=== PATIENT | male | born 1945 | race Caucasian/White ===

== ENCOUNTER 2016-06-04 16:14 | Outpatient (CLI) | payer MEDICARE, OTHER | END 2016-06-04 16:15 | disposition home or self-care (01) | DX: M17.11 Unilateral primary osteoarthritis, right knee (principal) ==

== ENCOUNTER 2016-12-31 20:15 | Outpatient (CLI) | payer MEDICARE, OTHER ==
[2016-12-31 19:34] LABS: BASOPHILS # (AUTO) 0.1 10^3/uL (0.0-0.1); BASOPHILS % (AUTO) 0.8 %; EOSINOPHILS # (AUTO) 0.2 10^3/uL (0.0-0.7); EOSINOPHILS % (AUTO) 2.6 %; HCT - HEMATOCRIT 35.8 % (42.0-52.0); HGB - HEMOGLOBIN 11.9 g/dL (14.0-18.0); LYMPHOCYTES # (AUTO) 1.5 10^3/uL (1.5-3.5); LYMPHOCYTES % (AUTO) 16.7 %; MEAN CORPUSCULAR HEMOGLOBIN 30.5 pg (27.0-31.0); MEAN CORPUSCULAR HGB CONC 33.4 g/dL (32.0-36.0); MEAN CORPUSCULAR VOLUME 91.5 fL (80.0-94.0); MEAN PLATELET VOLUME 8.6 fL (7.4-11.4); MONOCYTES # (AUTO) 0.7 10^3/uL (0.0-1.0); MONOCYTES % (AUTO) 7.1 %; NEUTROPHILS # (AUTO) 6.7 10^3/uL (1.5-6.6); NEUTROPHILS % (AUTO) 72.8 %; NUCLEATED RED BLOOD CELLS AUTO 0.1 /100WBC; RED BLOOD COUNT 3.91 10^6/uL (4.70-6.10); RED CELL DISTRIBUTION WIDTH 14.2 % (12.0-15.0); UNCORRECTED WHITE BLOOD COUNT 9.8 x10^3/uL; WHITE BLOOD COUNT 9.2 x10^3/uL (4.8-10.8)
[2016-12-31 19:37] LABS: ALBUMIN/GLOBULIN RATIO 0.9 (1.0-2.2); BILIRUBIN,TOTAL 0.5 mg/dL (0.2-1.0); BUN - BLOOD UREA NITROGEN 33 mg/dL (6-20); CALCIUM 9.2 mg/dL (8.5-10.3); CARBON DIOXIDE - CO2 25 mmol/L (21-32); CHLORIDE 108 mmol/L (101-111); CHOL/HDL RATIO 4.5 (<5.0); CHOLESTEROL 149 mg/dL; GFR - MDRD 73 (>89); GLUCOSE 129 mg/dL (70-100); HDL CHOLESTEROL 33 mg/dL; LDL/HDL RATIO 2.9 (<3.6); SODIUM 141 mmol/L (135-145); TOTAL PROTEIN 7.7 g/dL (6.7-8.2); TRIGLYCERIDES 96 mg/dL; VLDL CHOLESTEROL 19 mg/dL
[2016-12-31 19:41] LABS: PSA FREE 0.638 ng/mL (0.16-2.81)
[2016-12-31 19:42] LABS: PSA TOTAL 1.833 ng/mL (0.000-2.000)
[2016-12-31 19:57] LABS: HEMOGLOBIN A1C 0.67 g/dL
[2016-12-31 20:53] LABS: PLATELET ESTIMATE, MANUAL DECREASED (<130,000) (NORMAL); PLATELET MORPHOLOGY PLATELET CLUMPING (NORMAL); WBC MORPHOLOGY (MULTIPLE) NORMAL APPEARANCE (NORMAL)
== END 2016-12-31 20:16 | disposition home or self-care (01) ==
LOC: LAB.N 20:15
PROVIDERS: ATTEND Family Medicine
DX: D64.9 Anemia, unspecified (principal); E11.9 Type 2 diabetes mellitus without complications; E78.2 Mixed hyperlipidemia; E55.9 Vitamin D deficiency, unspecified; I10 Essential (primary) hypertension; N40.0 Benign prostatic hyperplasia without lower urinary tract symptoms
CPT/HCPCS: 36415; 80053; 80061; 82306; 83036; 84154; 85025

== ENCOUNTER 2017-04-16 08:00 | Outpatient (CLI) | payer MEDICARE, OTHER ==
[2017-04-16 19:45] LABS: CALCIUM 9.2 mg/dL (8.5-10.3); POTASSIUM 4.3 mmol/L (3.5-5.0)
[2017-04-16 20:12] LABS: HEMOGLOBIN A1C 0.61 g/dL
== END 2017-04-16 08:01 | disposition home or self-care (01) ==
LOC: LAB.N 08:00
PROVIDERS: ATTEND Family Medicine
DX: E11.9 Type 2 diabetes mellitus without complications (principal)
CPT/HCPCS: 36415; 80048; 83036

== ENCOUNTER 2018-01-07 15:16 | Outpatient (CLI) | payer MEDICARE, OTHER ==
[2018-01-07 19:46] LABS: HB2 TOTAL 11.7 g/dL; HEMOGLOBIN A1C 0.58 g/dL; HEMOGLOBIN A1C % 6.7 % (4.6-6.2)
[2018-01-07 19:53] LABS: ALBUMIN 3.6 g/dL (3.2-5.5); ALBUMIN/GLOBULIN RATIO 0.9 (1.0-2.2); ALKALINE PHOSPHATASE 78 IU/L (42-121); ALT ALANINE AMINOTRANSFERASE 16 IU/L (10-60); AST ASPARTATE AMINOTRANSFERASE 20 IU/L (10-42); BILIRUBIN,TOTAL 0.5 mg/dL (0.2-1.0); BUN - BLOOD UREA NITROGEN 29 mg/dL (6-20); CARBON DIOXIDE - CO2 23 mmol/L (21-32); CHLORIDE 110 mmol/L (101-111); CHOL/HDL RATIO 4.1 (<5.0); CHOLESTEROL 138 mg/dL; GFR - MDRD 73 (>89); GLUCOSE 106 mg/dL (70-100); HDL CHOLESTEROL 34 mg/dL; LDL CHOLESTEROL,CALCULATED 86 mg/dL; LDL/HDL RATIO 2.5 (<3.6); PSA FREE 0.41 ng/mL (0.16-2.81); SODIUM 142 mmol/L (135-145); TOTAL PROTEIN 7.7 g/dL (6.7-8.2); VLDL CHOLESTEROL 18 mg/dL
[2018-01-07 19:54] LABS: PSA TOTAL 1.73 ng/mL (0.000-2.000)
[2018-01-07 20:23] LABS: BASOPHILS % (AUTO) 0.7 %; EOSINOPHILS # (AUTO) 0.2 10^3/uL (0.0-0.7); EOSINOPHILS % (AUTO) 2.9 %; HGB - HEMOGLOBIN 11.6 g/dL (14.0-18.0); LYMPHOCYTES # (AUTO) 1.2 10^3/uL (1.5-3.5); LYMPHOCYTES % (AUTO) 17.5 %; MEAN CORPUSCULAR HEMOGLOBIN 29.9 pg (27.0-31.0); MEAN CORPUSCULAR HGB CONC 32.8 g/dL (32.0-36.0); MEAN CORPUSCULAR VOLUME 91.2 fL (80.0-94.0); MONOCYTES # (AUTO) 0.5 10^3/uL (0.0-1.0); MONOCYTES % (AUTO) 7.4 %; NEUTROPHILS % (AUTO) 71.5 %; RED BLOOD COUNT 3.87 10^6/uL (4.70-6.10); RED CELL DISTRIBUTION WIDTH 15.7 % (12.0-15.0)
[2018-01-07 20:31] LABS: PLATELET ESTIMATE, MANUAL DECREASED (<130,000) (NORMAL); PLATELET MORPHOLOGY PLATELET CLUMPING (NORMAL)
== END 2018-01-07 15:17 | disposition home or self-care (01) ==
LOC: LAB.N 15:16
PROVIDERS: ATTEND Family Medicine
DX: I10 Essential (primary) hypertension (principal); E11.9 Type 2 diabetes mellitus without complications; E78.2 Mixed hyperlipidemia; N40.0 Benign prostatic hyperplasia without lower urinary tract symptoms; I83.009 Varicose veins of unspecified lower extremity with ulcer of unspecified site
CPT/HCPCS: 36415; 80053; 80061; 83036; 83721; 84154; 85025; 87070; 87077; 87181; 87205

== ENCOUNTER 2018-02-07 20:41 | Outpatient (CLI) | payer MEDICARE, OTHER | END 2018-02-07 20:42 | disposition critical access hospital (66) | LOC: EMS 20:41 | PROVIDERS: ATTEND Surgery | DX: R41.82 Altered mental status, unspecified (principal); R11.2 Nausea with vomiting, unspecified | CPT/HCPCS: A0425; A0427 ==

== ENCOUNTER 2018-02-07 20:56 | Inpatient (IN) | payer MEDICARE, OTHER ==
[2018-02-07] MEDS ORDERED: SODIUM CHLORIDE 0.9% 1,000 ML IV ONE ×2 (21:06→22:07)
--- NOTE | 2018-02-07 21:36 | XRAY Report ---
Reason: fever, hypoxic Procedure Date: 02/07/2018 Accession Number: [id number] / [id number] Procedure: XR - Chest 1 View X-Ray CPT Code: 66548 FULL RESULT: EXAM: CHEST RADIOGRAPHY EXAM DATE: 02/07/2018 09:28 PM. CLINICAL HISTORY: Fever, hypoxic. COMPARISON: 06/22/2008 10:31 AM. TECHNIQUE: 1 view. FINDINGS: Lungs/Pleura: Mild interstitial prominence noted in both lungs. No consolidation, effusions or pneumothorax. Mediastinum: Stable cardiomediastinal silhouette. Ectatic thoracic aorta. Other: None. IMPRESSION: 1. Interstitial prominence throughout both lungs may be inflammatory or infectious given the history. Edema can have a similar appearance. Favor infection or inflammatory changes given the presentation. 2. Mild cardiac enlargement. 3. No effusions or pneumothorax. RADIA
[2018-02-07] MEDS ORDERED: cefTRIAXone 1 GM in SODIUM CHLORIDE 0.9% MINIBAG 100 ML IV STA (21:42)
[2018-02-07 21:55] LABS: INR 1.3 (0.8-1.2); PT - PROTHROMBIN TIME 14.3 secs (9.9-12.6)
[2018-02-07 21:57] LABS: VBG PCO2 34.5 mmHg (41-51); VBG PH 7.411 (7.31-7.41)
[2018-02-07 21:58] LABS: VBG BASE EXCESS -2.6 mmol/L (-2 - +2); VBG PO2 79.6 mmHg (25-47); VBG TOTAL CO2 22.5 mmol/L (24-29)
[2018-02-07 21:59] LABS: BASOPHILS % (AUTO) 0.2 %; EOSINOPHILS % (AUTO) 0.2 %; LYMPHOCYTES % (AUTO) 1.9 %; MEAN CORPUSCULAR HEMOGLOBIN 30.6 pg (27.0-31.0); MEAN CORPUSCULAR HGB CONC 34.1 g/dL (32.0-36.0); MEAN CORPUSCULAR VOLUME 89.7 fL (80.0-94.0); MEAN PLATELET VOLUME 7.4 fL (7.4-11.4); MONOCYTES % (AUTO) 0.5 %; NEUTROPHILS % (AUTO) 97.2 %; PLT - PLATELET COUNT 153 10^3/uL (130-450); RED BLOOD COUNT 3.59 10^6/uL (4.70-6.10); RED CELL DISTRIBUTION WIDTH 15.1 % (12.0-15.0); WHITE BLOOD COUNT 9.5 x10^3/uL (4.8-10.8)
[2018-02-07 22:02] LABS: ABNORMAL LYMPHS % (MANUAL) 0 %
[2018-02-07 22:03] LABS: ALBUMIN 3.1 g/dL (3.2-5.5); ALBUMIN/GLOBULIN RATIO 0.9 (1.0-2.2); ALKALINE PHOSPHATASE 85 IU/L (42-121); ALT ALANINE AMINOTRANSFERASE 17 IU/L (10-60); AST ASPARTATE AMINOTRANSFERASE 22 IU/L (10-42); BILIRUBIN,TOTAL 0.8 mg/dL (0.2-1.0); BUN - BLOOD UREA NITROGEN 30 mg/dL (6-20); CALCIUM 8.4 mg/dL (8.5-10.3); CARBON DIOXIDE - CO2 23 mmol/L (21-32); CHLORIDE 111 mmol/L (101-111); CREATININE 1.1 mg/dL (0.6-1.2); GFR - MDRD 65 (>89); GLUCOSE 147 mg/dL (70-100); LIPASE 21 U/L (22-51); SODIUM 142 mmol/L (135-145); TOTAL PROTEIN 6.7 g/dL (6.7-8.2)
[2018-02-07 22:10] LABS: KETONES, SERUM (ACETEST) SMALL (NEGATIVE)
[2018-02-07] MEDS ORDERED: ACETAMINOPHEN 1,000 MG/100 ML 100 ML IV STA (22:12)
--- NOTE | 2018-02-07 22:13 | ED Physician Documentation ---
PD HPI ALTERED MENTAL STATUS - Stated complaint Stated Complaint: AMS - Chief complaint Chief Complaint: Neuro - History obtained from History obtained from: EMS - History of Present Illness Timing - onset: Today Timing - details: Gradual onset, Still present Quality / character: Less responsive, Confused Associated symptoms: Fever Contributing factors: Diabetic Basline status: Alert and oriented X 3 Treatment GERIATRICIAN: Accucheck Similar symptoms before: Has not had sx before Recently seen: Not recently seen - Additional information Additional information: Patient is a 72 year old male with a history of diabetes and morbid obesity who is presenting to the emergency department for altered mental status. Family states that they came home and found the patient on the couch. Patient was less responsive and shaking so they called ems. when ems arrived patient was found to be hypoxic and febrile Review of Systems Unable to obtain: AMS PD PAST MEDICAL HISTORY - Past Medical History Past Medical History: Yes Cardiovascular: Congestive heart failure, Hypertension, High cholesterol Respiratory: None Neuro: None Endocrine/Autoimmune: Type 1 diabetes GI: None : None HEENT: None Psych: None Musculoskeletal: None - Past Surgical History Past Surgical History: Yes Ortho: Other - Present Medications Home Medications: Ambulatory Orders Medication Instructions Recorded Confirmed Aspirin [Children's Aspirin] 81 mg PO DAILY 05/04/13 02/07/18 Cholecalciferol (Vitamin D3) 5,000 unit PO DAILY 05/04/13 02/07/18 [Vitamin D] Furosemide [Lasix] 20 mg PO DAILY 05/04/13 02/07/18 Insulin Glargine,Hum.rec.anlog 30 unit SQ DAILY 05/04/13 02/07/18 [Lantus] Lisinopril 20 mg PO DAILY 05/04/13 02/07/18 Potassium Chloride 20 meq PO DAILY #30 tab.er.prt 05/04/13 02/07/18 Simvastatin [Zocor] 20 mg PO QPM 05/04/13 02/07/18 - Allergies Allergies/Adverse Reactions: Allergies Allergy/AdvReac Type Severity Reaction Status Date / Time No Known Drug Allergies Allergy Verified 05/04/13 12:42 - Social History Does the pt smoke?: Yes Smoking Status: Current some day smoker Does the pt drink ETOH?: No Does the pt have substance abuse?: No - Immunizations Immunizations are current?: No Immunizations: TDAP >10years/unknown - POLST Patient has POLST: No PD ED PE NORMAL - HEENT HEENT: Atraumatic - Cardiac Cardiac: RRR PD ED PE EXPANDED - General General: Other (less responsive) - HEENT HEENT: Dry mucous membranes - Respiratory Respiratory: Labored, Decreased breath sounds, Right middle lobe, Right lower lobe, Left lower lobe - Derm Derm: Other (wound of right lower leg) - Extremities Extremities: Pedal edema bilateral, Other (discoloration of bilateral lower extremities) - GCS Eye Opening: To Pain Motor: Localizes to Pain Verbal: Confused Total: 11 Results - Vitals Vitals: Vital Signs - 24 hr 02/07/18 02/07/18 02/07/18 20:57 21:32 22:03 Temperature 38.4 C H 38.9 C H Heart Rate 99 98 94 Respiratory 18 21 24 Rate Blood Pressure 136/76 H 136/79 H 136/79 H O2 Saturation 90 L 96 96 Oxygen O2 Source Nasal cannula Oxygen Flow Rate 3 - EKG (time done) 2104 Rate: Rate (enter#) (98) Rhythm: NSR Intervals: Prolonged KS QRS: Normal Ischemia: Normal ST segments - Labs Labs: Laboratory Tests 02/07/18 02/07/18 02/07/18 21:45 21:45 21:45 WBC 9.5 RBC 3.59 L Hgb 11.0 L Hct 32.2 L MCV 89.7 MCH 30.6 MCHC 34.1 RDW 15.1 H Plt Count 153 MPV 7.4 Manual Slide Review Indicated PT INR APTT VBG pH VBG pCO2 VBG pO2 VBG HCO3 VBG Total CO2 VBG O2 Saturation VBG Base Excess Sodium 142 Potassium 3.6 Chloride 111 Carbon Dioxide 23 Anion Gap 8.0 BUN 30 H Creatinine 1.1 Estimated GFR (MDRD) 65 L Glucose 147 H Lactic Acid Calcium 8.4 L Total Bilirubin 0.8 AST 22 ALT 17 Alkaline Phosphatase 85 Troponin I 0.04 Total Protein 6.7 Albumin 3.1 L Globulin 3.6 Albumin/Globulin Ratio 0.9 L Lipase 21 L Serum Ketones SMALL H 02/07/18 02/07/18 02/07/18 21:45 21:45 21:45 WBC RBC Hgb Hct MCV MCH MCHC RDW Plt Count MPV Manual Slide Review PT 14.3 H INR 1.3 H APTT 23.2 L VBG pH 7.411 H VBG pCO2 34.5 L VBG pO2 79.6 H VBG HCO3 21.4 L VBG Total CO2 22.5 L VBG O2 Saturation 95.3 H VBG Base Excess -2.6 L Sodium Potassium Chloride Carbon Dioxide Anion Gap BUN Creatinine Estimated GFR (MDRD) Glucose Lactic Acid 1.8 Calcium Total Bilirubin AST ALT Alkaline Phosphatase Troponin I Total Protein Albumin Globulin Albumin/Globulin Ratio Lipase Serum Ketones - Rads (name of study) chest x-ray Radiology: Final report received (bilateral pneumonia) PD MEDICAL DECISION MAKING - ED course Complexity details: reviewed old records, reviewed results, re-evaluated patient, considered differential, d/w patient, d/w family ED course: Patient was seen and examined at bedside. patient was placed on a monitor. Patient was minimally responsive but was maintaining his airway. labs were draw n including blood cultures and lactic acid. patient was treated with a fluid bolus. chest x-ray was performed and showed bilateral pneumonia. Patient was started on rocephin and Iv tylenol. hospitalist was contacted and the case was discussed with him. patient was admitted for further evaluation and care. - Sepsis Event Vital Signs: Vital Signs - 24 hr 02/07/18 02/07/18 02/07/18 20:57 21:32 22:03 Temperature 38.4 C H 38.9 C H Heart Rate 99 98 94 Respiratory 18 21 24 Rate Blood Pressure 136/76 H 136/79 H 136/79 H O2 Saturation 90 L 96 96 Oxygen O2 Source Nasal cannula Oxygen Flow Rate 3 Departure - Departure Disposition: [facility] DC/Xfer Clinical Impression: Pneumonia Condition: Stable
[2018-02-07 22:22] LABS: BAND NEUTROPHILS % (MANUAL) 23 %; LYMPHOCYTES # (MANUAL) 0.3 10^3/uL (1.5-3.5); LYMPHOCYTES % (MANUAL) 3 %; NEUTROPHILS # (MANUAL) 9.2 10^3/uL (1.5-6.6); NEUTROPHILS % (MANUAL) 74 %
[2018-02-07 22:23] LABS: DIFFERENTIAL COMMENT MANUAL DIFFERENTIAL; PLATELET ESTIMATE, MANUAL NORMAL (130-450,000) (NORMAL); PLATELET MORPHOLOGY NORMAL APPEARANCE (NORMAL); RBC MORPHOLOGY (MULTIPLE) NORMAL APPEARANCE (NORMAL)
[2018-02-07] MEDS ORDERED: IBUPROFEN 600 MG TABLET PO PRN (22:25)
[2018-02-07] MEDS ORDERED: ALBUTEROL NEB 2.5 MG/3 ML INH PRN (22:25)
[2018-02-07] MEDS ORDERED: PROCHLORPERAZINE 10 MG/2 ML VIAL IVP PRN (22:25)
[2018-02-07] MEDS ORDERED: ONDANSETRON 4 MG/2 ML VIAL IVP PRN (22:25)
[2018-02-07] MEDS ORDERED: ACETAMINOPHEN 325 MG TABLET PO PRN (22:25)
--- NOTE | 2018-02-07 22:33 | HISTORY & PHYSICAL EXAMINATION ---
Chief Complaint - Chief Complaint Chief Complaint: Altered Mental Status History of Present Illness - Admitted From Admitted From:: Emergency Department - History Obtained From Records Reviewed: Yes History obtained from: Patient and his family Exam Limitations: Patient does not recall events of today clearly - History of Present Illness HPI Comment/Other: Patient is a 72-year-old gentleman with a past medical history significant for morbid obesity, insulin-dependent diabetes, hypertension, hyperlipidemia, congestive heart failure and chronic venous stasis of bilateral lower extremities who presents to the emergency department with a chief complaint of altered mental status. The patient was apparently in his normal state of health this morning when his daughter and left to go to the commissary. When they returned they noticed that he got up from his chair and then had a pop in his back and complained of some pain in his back. Shortly after that the patient's daughter states that the patient began shivering and felt very cold. This continued for over an hour when his other daughter arrived to the home she noticed that he was on the couch and shaking stating he was cold. She states that he was less and less responsive over the course of the day. She states that when he went to the bathroom he fell asleep on the toilet and it took quite a while to get him up and then back into his chair. When the patient continued to be lethargic and was less and less responsive the patient's family finally called 911 and brought him into the emergency department. The patient's daughter states the patient is also been having heavy breathing and appeared to be short of breath throughout the day. The patient himself denies any cough or shortness of breath. He also denies any chest pain. The patient states he has been in and out all day and does not remember the course of the events that occurred prior to him coming into the emergency department. When I saw the patient he was much more alert and able to provide me with his medical history. He did appear to be quite weak and fatigued. The patient's daughter states that when she saw him earlier he appeared very sick looking and pinto. Patient denies any headaches, blurred vision, runny nose, sore throat, nasal congestion, orthopnea, PND, increased lower extremity swelling, abdominal pain, nausea, vomiting, diarrhea, constipation, urinary urgency, urinary frequency, dysuria, joint pain, neck stiffness, hair loss, skin rash, skin changes, recent unintentional weight loss, changes in his appetite, night sweats, or any focal neurologic deficits. On presentation to the emergency department the patient was febrile with a temperature of 38.4, tachycardic with a heart rate of 99 and normotensive. The patient was also in some mild respiratory distress with respiratory rate up to 24 and hypoxic down to 90% on room air. The patient underwent routine lab work which did reveal a bandemia of 23%. The patient otherwise had positive serum ketones and a mildly elevated BUN. Patient had a negative troponin and BNP was only 211. The patient did undergo a flu swab which was negative. The patient's INR was 1.3. The patient's chest x-ray revealed interstitial prominence throughout both lungs concerning for an infectious process. Given the patient's hypoxia, shortness of breath, tachypnea and this finding on chest x-ray in the setting of sepsis the patient was admitted for community-acquired pneumonia with sepsis. History - Past Medical History Cardiovascular: reports: Congestive heart failure, Hypertension, High cholesterol, Other (Morbid obesity) Respiratory: reports: None Neuro: reports: None Endocrine/Autoimmune: reports: Type 2 diabetes GI: reports: None : reports: None HEENT: reports: None Psych: reports: None Musculoskeletal: reports: Osteoarthritis, Other (Chronic venous stasis with left lower externally ulcer) MRSA Hx?: No - Past Surgical History Ortho: reports: Other - Family & Social History Family History: Mother: (Mother at age 87 of old age and father at age 90 of old age), Father: Family History Comment/Other: No family history of coronary artery disease, stroke, diabetes or cancer. Living arrangement: At home Living Situation: With spouse/s.o. Social History Notes: The patient lives in [place], [place] with his to whom he has been for a long time. The patient jokes saying that it feels like it has been 230 years. The patient has 3 children, 2 daughters and 1 son. 2 of his children live in [place] and one lives in [place]. The patient is originally from [place], [place]. His parents moved to [place] after the war and then he came back to the [place] area when he joined the [employer]. The patient is a retired [employer]. He is a smoker and currently vapes prior to th is he smoked 1 pack of cigarettes a day and has been doing so for over 50 years. The patient does not drink alcohol and denies any illicit drug use. - POLST Patient has POLST: No POLST Status: Full Code Meds/Allgy - Home Medications Home Medications: Ambulatory Orders Medication Instructions Recorded Confirmed Aspirin [Children's Aspirin] 81 mg PO DAILY 05/04/13 02/07/18 Cholecalciferol (Vitamin D3) 5,000 unit PO DAILY 05/04/13 02/07/18 [Vitamin D] Furosemide [Lasix] 20 mg PO DAILY 05/04/13 02/07/18 Insulin Glargine,Hum.rec.anlog 30 unit SQ DAILY 05/04/13 02/07/18 [Lantus] Lisinopril 20 mg PO DAILY 05/04/13 02/07/18 Potassium Chloride 20 meq PO DAILY #30 tab.er.prt 05/04/13 02/07/18 Simvastatin [Zocor] 20 mg PO QPM 05/04/13 02/07/18 - Allergies Allergies/Adverse Reactions: Allergies Allergy/AdvReac Type Severity Reaction Status Date / Time No Known Drug Allergies Allergy Verified 05/04/13 12:42 Review of Systems - Other Findings Other Findings: A comprehensive review of systems was performed the pertinent positives and negatives are stated above in the HPI and the remainder of the review of systems is negative. Prior Level of Functionality: The patient is completely independent. He does not use any ambulatory device. He is capable of performing all his activities of daily living independently. Exam - Vital Signs Reviewed Vital Signs: Yes Vital Signs: Vital Signs x48h Temp Pulse Resp BP Pulse Ox 02/07/18 22:23 93 18 100/66 95 02/07/18 22:03 38.9 C H 94 24 136/79 H 96 02/07/18 21:32 98 21 136/79 H 96 02/07/18 20:57 38.4 C H 99 18 136/76 H 90 L - Physical Exam General Appearance: positive: Mild distress (Patient is tachypneic and appears ill.), Lethargic (Patient initially hard to arouse but once aroused he does answer my questions appropriately and follows commands appropriately.) Eyes Bilateral: positive: Normal inspection, PERRL, EOMI, No lid inflammation, Conjunctivae nml, No scleral icterus ENT: positive: ENT inspection nml, Pharynx nml, Dry mucous membranes. negative: Purulent nasal drainage, Pharyngeal erythema, Oral lesions Neck: positive: Nml inspection, Thyroid nml, No JVD, Trachea midline. negative: Lymphadenopathy (R), Lymphadenopathy (L), Stiff neck, Carotid bruit, Tracheal deviation Respiratory: positive: Chest non-tender, No respiratory distress, Rhonchi (Bilateral, mid lung.). negative: Wheezes Cardiovascular: positive: No murmur, No gallop, Tachycardia Peripheral Pulses: positive: 2+ Abdomen: positive: Non-tender, No organomegaly, Nml bowel sounds, No distention, Other (Obese). negative: Guarding, Rebound, Hepatomegaly Back: positive: Nml inspection. negative: CVA tenderness (R), CVA tenderness (L) Skin: positive: Color nml, Warm, Dry. negative: Cyanosis, Diaphoresis, Pallor Extremities: positive: Full ROM, Pedal edema (Mild bilateral), Other (Patient has hyperpigmentation of his right lower extremity. Left lower extremity is wrapped in dressing due to his chronic venous stasis and ulcers. I did not remove the dressing given it was tightly wrapped and he has received wound care in the area.) Neurologic/Psychiatric: positive: Oriented x3, CN's nml (2-12), Motor nml, Sensation nml, Mood/affect nml, Other (Initially patient was difficult to arouse) Conclusion/Plan - Problem List (1) Sepsis Conclusion/Plan: Patient presents to the emergency department with altered mental status and lethargy. The patient's blood work revealed a bandemia of 23%. On presentation the patient had a temperature of 38.9 C, he was tachycardic up to 100 and tachypneic up to 24. Given the 4 out of 4 Sirs criteria with altered mental status the patient presented with sepsis. Patient's lactic acid was normal and blood pressure remained stable. The patient's chest x-ray revealed bilateral interstitial inflammation consistent with likely pneumonia. Patient was admitted for sepsis secondary to pneumonia. Plan: IV ceftriaxone and IV azithromycin IV fluids Blood cultures Monitor closely (2) CAP (community acquired pneumonia) Conclusion/Plan: Patient presented to the emergency met with altered mental status and was found to be septic. Patient's chest x-ray showed bilateral interstitial prominence concerning for pneumonia. Given that the patient was hypoxic on presentation with a bandemia and fever as well as tachypneic patient was admitted for community-acquired pneumonia. Plan: IV ceftriaxone azithromycin IV fluids Awaiting blood cultures Supplemental oxygen Nebs as needed Qualifiers: Laterality: unspecified laterality Qualified Code(s): J18.9 - Pneumonia, unspecified organism (3) Metabolic encephalopathy Conclusion/Plan: On presentation to the emergency department the patient was lethargic and confused. The patient states he had been in and out all day and could not remember what had transpired. With antibiotics and fluids the patient did have improvement in his mentation. The patient's presentation was concerning for metabolic encephalopathy secondary to sepsis and community-acquired pneumonia. The patient will be treated for pneumonia and sepsis and already it seems as though his symptoms are resolving. (4) Diabetes Conclusion/Plan: Patient is a history of type 2 diabetes mellitus and is on insulin at home. The patient takes Lantus 30 units subcutaneous daily. The patient does not take any mealtime insulin. On presentation to the emergency department the patient's blood glucose is mildly elevated at 147. Plan: Diabetic diet Monitor blood glucose before meals at bedtime Continue home dose of Lantus daily Sliding scale insulin with meals Check hemoglobin A1c Qualifiers: Diabetes mellitus type: type 2 Diabetes mellitus long-term insulin use: with long-term use Diabetes mellitus complication status: with skin complications Diabetes mellitus complication detail: with other skin ulcer Qualified Code(s): E11.622 - Type 2 diabetes mellitus with other skin ulcer; Z79.4 - care home (current) use of insulin (5) Hypertension Conclusion/Plan: The patient has a history of hypertension on presentation to the emergency department initially the patient is normotensive but patient's blood pressure appears to be dropping as he is admitted to the floor with a blood pressure of 100/66. The patient is septic on presentation therefore we will hold his antihypertensive medications for now. Patient will be given IV fluids and we will continue to monitor his blood pressure closely. Qualifiers: Hypertension type: essential hypertension Qualified Code(s): I10 - Essential (primary) hypertension (6) Hyperlipidemia Conclusion/Plan: Patient has a history of hyperlipidemia and is on Zocor at home we will continue him on statins while he is hospitalized. Qualifiers: Hyperlipidemia type: unspecified Qualified Code(s): E78.5 - Hyperlipidemia, unspecified (7) CHF (congestive heart failure) Conclusion/Plan: The patient states that he has a history of congestive heart failure but he is not sure if it is systolic or diastolic. We do not have any previous records of an echocardiogram or the specific kind of heart failure he has. The patient states that he takes water pills and has fluid retention. The patient is not on any home oxygen and he does not appear to have significant limitations in his physical activity or overt symptoms due to his CHF. The patient will be classified as an NYHA class I. Plan: We will hold the patient's Lasix and lisinopril secondary to borderline hypotension in the setting of sepsis. We will give the patient IV fluids but will be gentle with hydration given his history of CHF We will get an echocardiogram to further evaluate his CHF. Qualifiers: Heart failure type: unspecified Heart failure chronicity: chronic Qualified Code(s): I50.9 - Heart failure, unspecified - Lab Results Lab results reviewed: Yes Fish Bones: 02/07/18 21:45 02/07/18 21:45 Other Lab Results: Laboratory Results WBC 9.5 x10^3/uL (4.8-10.8) 02/07/18 21:45 RBC 3.59 10^6/uL (4.70-6.10) L 02/07/18 21:45 Hgb 11.0 g/dL (14.0-18.0) L 02/07/18 21:45 Hct 32.2 % (42.0-52.0) L 02/07/18 21:45 MCV 89.7 fL (80.0-94.0) 02/07/18 21:45 MCH 30.6 pg (27.0-31.0) 02/07/18 21:45 MCHC 34.1 g/dL (32.0-36.0) 02/07/18 21:45 RDW 15.1 % (12.0-15.0) H 02/07/18 21:45 Plt Count 153 10^3/uL (130-450) 02/07/18 21:45 MPV 7.4 fL (7.4-11.4) 02/07/18 21:45 Neut # (Auto) Not Reportable 02/07/18 21:45 Lymph # (Auto) Not Reportable 02/07/18 21:45 [place] # (Auto) Not Reportable 02/07/18 21:45 Eos # (Auto) Not Reportable 02/07/18 21:45 Baso # (Auto) Not Reportable 02/07/18 21:45 Absolute Nucleated RBC Not Reportable 02/07/18 21:45 Total Counted 100 02/07/18 21:45 Band Neuts % (Manual) 23 % (0-10) H 02/07/18 21:45 Abnorm Lymph % (Manual) 0 % 02/07/18 21:45 Nucleated RBC % Not Reportable 02/07/18 21:45 Neutrophils # (Manual) 9.2 10^3/uL (1.5-6.6) H 02/07/18 21:45 Lymphocytes # (Manual) 0.3 10^3/uL (1.5-3.5) L 02/07/18 21:45 Monocytes # (Manual) 0.0 10^3/uL (0.0-1.0) 02/07/18 21:45 Eosinophils # (Manual) 0.0 10^3/uL (0-0.7) 02/07/18 21:45 Basophils # (Manual) 0.0 10^3/uL (0-0.1) 02/07/18 21:45 Differential Comment MANUAL DIFFERENTIAL 02/07/18 21:45 Manual Slide Review Indicated 02/07/18 21:45 WBC Morphology NORMAL APPEARANCE (NORMAL) 02/07/18 21:45 Platelet Estimate NORMAL (130-450,000) (NORMAL) 02/07/18 21:45 Platelet Morphology NORMAL APPEARANCE (NORMAL) 02/07/18 21:45 RBC Morph Micro Appear NORMAL APPEARANCE (NORMAL) 02/07/18 21:45 PT 14.3 secs (9.9-12.6) H 02/07/18 21:45 INR 1.3 (0.8-1.2) H 02/07/18 21:45 APTT 23.2 secs (24.9-33.3) L 02/07/18 21:45 VBG pH 7.411 (7.31-7.41) H 02/07/18 21:45 VBG pCO2 34.5 mmHg (41-51) L 02/07/18 21:45 VBG pO2 79.6 mmHg (25-47) H 02/07/18 21:45 VBG HCO3 21.4 mmol/L (23-28) L 02/07/18 21:45 VBG Total CO2 22.5 mmol/L (24-29) L 02/07/18 21:45 VBG O2 Saturation 95.3 % (60-80) H 02/07/18 21:45 VBG Base Excess -2.6 mmol/L (-2 - +2) L 02/07/18 21:45 Sodium 142 mmol/L (135-145) 02/07/18 21:45 Potassium 3.6 mmol/L (3.5-5.0) 02/07/18 21:45 Chloride 111 mmol/L (101-111) 02/07/18 21:45 Carbon Dioxide 23 mmol/L (21-32) 02/07/18 21:45 Anion Gap 8.0 (6-13) 02/07/18 21:45 BUN 30 mg/dL (6-20) H 02/07/18 21:45 Creatinine 1.1 mg/dL (0.6-1.2) 02/07/18 21:45 Estimated GFR (MDRD) 65 (>89) L 02/07/18 21:45 Glucose 147 mg/dL (70-100) H 02/07/18 21:45 Lactic Acid 1.8 mmol/L (0.5-2.2) 02/07/18 21:45 Calcium 8.4 mg/dL (8.5-10.3) L 02/07/18 21:45 Total Bilirubin 0.8 mg/dL (0.2-1.0) 02/07/18 21:45 AST 22 IU/L (10-42) 02/07/18 21:45 ALT 17 IU/L (10-60) 02/07/18 21:45 Alkaline Phosphatase 85 IU/L (42-121) 02/07/18 21:45 Troponin I 0.04 ng/mL (<0.49) 02/07/18 21:45 B-Natriuretic Peptide 211 pg/mL (5-100) H 02/07/18 21:45 Total Protein 6.7 g/dL (6.7-8.2) 02/07/18 21:45 Albumin 3.1 g/dL (3.2-5.5) L 02/07/18 21:45 Globulin 3.6 g/dL (2.1-4.2) 02/07/18 21:45 Albumin/Globulin Ratio 0.9 (1.0-2.2) L 02/07/18 21:45 Lipase 21 U/L (22-51) L 02/07/18 21:45 Serum Ketones SMALL (NEGATIVE) H 02/07/18 21:45 Influenza A (Rapid) Negative (Negative) 02/07/18 19:29 Influenza B (Rapid) Negative (Negative) 02/07/18 19:29 - Diagnostic Imaging Results Diagnostic Imaging Results: positive: Final report reviewed Diagnostic Imaging Results Comments: Chest x-ray Impression: 1. Interstitial prominence throughout both lungs may be inflammatory or infectious given the history. Edema can be similar appearance. Favor infection or inflammatory changes given the presentation. 2. Mild cardiac enlargement. 3. No effusions or pneumothorax. - EKG Results EKG Interpreted Independently: Yes EKG Findings: No ST elevations or ischemic changes. NSR. Core Measures - Anticipated LOS I expect patient to be DC'd or transferred within 96 hours.: Yes - DVT/VTE - Prophylaxis VTE/DVT Prophylaxis med ordered at admit?: Yes
[2018-02-07] MEDS ORDERED: SODIUM CHLORIDE 0.9% 1,000 ML IV SCH (23:00)
[2018-02-08] MEDS: SODIUM CHLORIDE FLUSH 0.9% 10 ML SYRINGE IVP SCH ×4 (00:30→17:35)
[2018-02-08 02:25] LABS: BILIRUBIN,URINE NEGATIVE (NEGATIVE); GLUCOSE, URINE (UA) NEGATIVE (NEGATIVE); KETONES,URINE (UA) NEGATIVE (NEGATIVE); LEUKOCYTE ESTERASE, URINE LARGE (NEGATIVE); NITRITE,URINE NEGATIVE (NEGATIVE); OCCULT BLOOD,URINE MODERATE (NEGATIVE); PROTEIN,URINE 30 mg/dL (NEGATIVE); UROBILINOGEN,URINE 0.2 (NORMAL) E.U./dL (NORMAL)
[2018-02-08 02:27] LABS: CLARITY,URINE SL. CLOUDY (CLEAR)
[2018-02-08 02:33] LABS: BACTERIA,URINE Few /HPF (None Seen); SQUAMOUS EPITHELIAL CELL,UR NONE SEEN (<= Few)
[2018-02-08] MEDS ORDERED: ACETAMINOPHEN 1,000 MG/100 ML 100 ML IV ONE (06:20)
[2018-02-08] MEDS ORDERED: FUROSEMIDE 40 MG/4 ML VIAL IVP STA (06:22)
[2018-02-08 06:58] LABS: BASOPHILS % (AUTO) 0.7 %; EOSINOPHILS % (AUTO) 0.2 %; HGB - HEMOGLOBIN 11.6 g/dL (14.0-18.0); LYMPHOCYTES # (AUTO) 0.4 10^3/uL (1.5-3.5); LYMPHOCYTES % (AUTO) 18.7 %; MEAN CORPUSCULAR HGB CONC 32.5 g/dL (32.0-36.0); MEAN CORPUSCULAR VOLUME 92.3 fL (80.0-94.0); MEAN PLATELET VOLUME 7.2 fL (7.4-11.4); MONOCYTES # (AUTO) 0.1 10^3/uL (0.0-1.0); MONOCYTES % (AUTO) 2.8 %; NEUTROPHILS # (AUTO) 1.5 10^3/uL (1.5-6.6); NEUTROPHILS % (AUTO) 77.6 %; PLT - PLATELET COUNT 140 10^3/uL (130-450); RED BLOOD COUNT 3.85 10^6/uL (4.70-6.10); RED CELL DISTRIBUTION WIDTH 15.8 % (12.0-15.0)
[2018-02-08] MEDS ORDERED: levoFLOXacin 750 MG/150 ML 750 MG/150 ML BAG IV SCH (07:00)
[2018-02-08 07:11] LABS: ALBUMIN 3.3 g/dL (3.2-5.5); ALBUMIN/GLOBULIN RATIO 0.8 (1.0-2.2); ALKALINE PHOSPHATASE 96 IU/L (42-121); ALT ALANINE AMINOTRANSFERASE 18 IU/L (10-60); AST ASPARTATE AMINOTRANSFERASE 35 IU/L (10-42); BILIRUBIN,TOTAL 0.6 mg/dL (0.2-1.0); BUN - BLOOD UREA NITROGEN 33 mg/dL (6-20); CALCIUM 8.2 mg/dL (8.5-10.3); CARBON DIOXIDE - CO2 21 mmol/L (21-32); CHLORIDE 106 mmol/L (101-111); CREATININE 1.4 mg/dL (0.6-1.2); GFR - MDRD 50 (>89); GLUCOSE 105 mg/dL (70-100); MAGNESIUM 1.6 mg/dL (1.7-2.8); PHOSPHORUS 3.7 mg/dL (2.5-4.6); SODIUM 139 mmol/L (135-145); TOTAL PROTEIN 7.5 g/dL (6.7-8.2)
[2018-02-08 07:16] LABS: VBG PH 7.243 (7.31-7.41)
--- NOTE | 2018-02-08 07:40 | XRAY Report ---
Reason: worsening hypoxia Procedure Date: 02/08/2018 Accession Number: [id number] / [id number] Procedure: XR - Chest 1 View X-Ray CPT Code: 30076 FULL RESULT: EXAM: CHEST RADIOGRAPHY EXAM DATE: 02/08/2018 06:44 AM. CLINICAL HISTORY: Worsening hypoxia. Pneumonia/sepsis. COMPARISON: CHEST 1 VIEW 02/07/2018 9:18 PM. TECHNIQUE: 1 view. 2 images are provided. FINDINGS: Lungs/Pleura: Mild bilateral diffuse hazy and reticular pulmonary opacities are similar to prior. Probable mild pulmonary vascular congestion. No pneumothorax or definite pleural effusion. Mediastinum: Mild enlargement of the cardiac silhouette and mildly tortuous, atherosclerotic thoracic aorta as before. Other: None. IMPRESSION: No significant change from prior. Bilateral pulmonary opacities may reflect an inflammatory/atypical infectious process with a possible component of interstitial pulmonary edema. RADIA
[2018-02-08 07:44] LABS: HB2 TOTAL 12.1 g/dL; HEMOGLOBIN A1C 0.5 g/dL; HEMOGLOBIN A1C % 5.9 % (4.6-6.2)
[2018-02-08 07:48] LABS: PLATELET ESTIMATE, MANUAL NORMAL (130-450,000) (NORMAL); RBC MORPHOLOGY (MULTIPLE) NORMAL APPEARANCE (NORMAL)
[2018-02-08 07:49] LABS: DIFFERENTIAL COMMENT MANUAL=AUTO DIFF
[2018-02-08] MEDS ORDERED: AZITHROMYCIN INJ 500 MG in SODIUM CHLORIDE 0.9% 250 ML IV SCH (09:00)
[2018-02-08] MEDS ORDERED: LISINOPRIL 20 MG TABLET PO SCH (09:00)
[2018-02-08] MEDS ORDERED: cefTRIAXone 2 GM in SODIUM CHLORIDE 0.9% MINIBAG 100 ML IV SCH (09:00)
[2018-02-08] MEDS: INSULIN ASPART 300 UNIT/3 ML PEN SUBQ SCH ×4 (09:13→20:51)
[2018-02-08] MEDS: CHOLECALCIFEROL 5,000 UNIT CAPSULE PO SCH (09:13)
[2018-02-08] MEDS: ENOXAPARIN 40 MG/0.4 ML SYRINGE SUBQ SCH (09:14)
[2018-02-08] MEDS: SACCHAROMYCES BOULARDII 250 MG CAPSULE PO SCH ×2 (09:14→17:34)
[2018-02-08] MEDS: ASPIRIN CHEW 81 MG TABLET PO SCH (09:14)
[2018-02-08] MEDS: INSULIN GLARGINE 300 UNIT/3 ML PEN SUBQ SCH (09:15)
[2018-02-08] MEDS: oxyCODONE 5 MG TABLET PO PRN (09:21)
[2018-02-08] MEDS: POLYETHYLENE GLYCOL 3350 17 GM PACKET PO SCH (09:21)
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
[2018-02-08] MEDS ORDERED: SODIUM CHLORIDE FLUSH 0.9% 10 ML SYRINGE IVP PRN (11:37)
[2018-02-08] MEDS: cefTAZidime 2 GM in SODIUM CHLORIDE 0.9% MINIBAG 100 ML IV SCH ×2 (11:50→22:02)
[2018-02-08] MEDS ORDERED: SODIUM CHLORIDE FLUSH 0.9% 10 ML SYRINGE ONE (12:28)
[2018-02-08] MEDS ORDERED: MAGNESIUM SULFATE 2 GRAM 2 GM/50 ML BAG IV ONE ×2 (12:36→14:00)
[2018-02-08] MEDS ORDERED: SODIUM CHLORIDE 0.9% 1,000 ML IV ONE (12:50)
[2018-02-08] MEDS ORDERED: GENTAMICIN PER PHARMACY (DO NOT LOAD) IV SCH (13:00)
--- NOTE | 2018-02-08 13:16 | ED Physician Documentation ---
ED Addendum - Addendum Addendum: 02/08/18 13:16 Procedure note, central line: Written informed consent was obtained from the oldest daughter (pt was delerious), risks including bleeding, infection, pneumothorax, arterial puncture, and need for surgery were discussed with her. The patient was prepped twice with ChloraPrep. I wore cap, mask, gown, sterile gloves. Full sterile sheet was utilized. Using real-time ultrasound guidance the right internal jugular vein was accessed and using Seldinger technique a triple-lumen 7 Divehi central line was placed in standard fashion and sutured into place without immediate complications.
--- NOTE | 2018-02-08 13:42 | XRAY Report ---
Reason: central line placment Procedure Date: 02/08/2018 Accession Number: [id number] / [id number] Procedure: XR - Chest 1 View X-Ray CPT Code: 84722 FULL RESULT: EXAM: CHEST RADIOGRAPHY EXAM DATE: 02/08/2018 01:28 PM. CLINICAL HISTORY: Central line placement. COMPARISON: Chest x-ray 02/08/2018 at 0625. TECHNIQUE: 1 view. FINDINGS: Lungs/Pleura: No pleural effusion or pneumothorax. Mild bilateral reticular interstitial opacities, similar to the prior examination. Mediastinum: Cardiomegaly with aortic tortuosity. Right internal jugular line with tip at the cavoatrial junction. Other: None. IMPRESSION: Right internal jugular line with tip at the cavoatrial junction. [facility]
[2018-02-08] MEDS ORDERED: GENTAMICIN IV SCH (14:00)
[2018-02-08] MEDS ORDERED: SODIUM CHLORIDE 0.9% IV SCH (14:00)
[2018-02-08] MEDS ORDERED: CALCIUM GLUCONATE 1,000 MG in SODIUM CHLORIDE 0.9% 50 ML IV ONE (15:00)
[2018-02-08] MEDS: ATORVASTATIN 10 MG TABLET PO SCH (20:58)
[2018-02-08] MEDS ORDERED: NON FORMULARY MED (Simvastatin [Zocor] 20 MG) PO SCH (21:00)
[2018-02-08] MEDS ORDERED: SODIUM CHLORIDE 0.9% 500 ML IV PRN (21:02)
[2018-02-09] MEDS: SODIUM CHLORIDE FLUSH 0.9% 10 ML SYRINGE IVP SCH ×8 (00:17→23:43)
[2018-02-09] MEDS: cefTAZidime 2 GM in SODIUM CHLORIDE 0.9% MINIBAG 100 ML IV SCH ×3 (05:45→21:35)
[2018-02-09] MEDS: SODIUM CHLORIDE FLUSH 0.9% 10 ML SYRINGE IVP PRN ×3 (05:46→21:36)
[2018-02-09 05:49] LABS: BASOPHILS # (AUTO) 0.1 10^3/uL (0.0-0.1); BASOPHILS % (AUTO) 0.4 %; EOSINOPHILS # (AUTO) 0.2 10^3/uL (0.0-0.7); EOSINOPHILS % (AUTO) 1.1 %; HGB - HEMOGLOBIN 9.8 g/dL (14.0-18.0); LYMPHOCYTES # (AUTO) 1.1 10^3/uL (1.5-3.5); LYMPHOCYTES % (AUTO) 8.1 %; MEAN CORPUSCULAR HEMOGLOBIN 30.5 pg (27.0-31.0); MEAN CORPUSCULAR HGB CONC 34.1 g/dL (32.0-36.0); MEAN CORPUSCULAR VOLUME 89.6 fL (80.0-94.0); MEAN PLATELET VOLUME 7.2 fL (7.4-11.4); MONOCYTES # (AUTO) 0.7 10^3/uL (0.0-1.0); MONOCYTES % (AUTO) 5.4 %; NEUTROPHILS # (AUTO) 11.7 10^3/uL (1.5-6.6); PLT - PLATELET COUNT 134 10^3/uL (130-450); RED CELL DISTRIBUTION WIDTH 15.8 % (12.0-15.0); WHITE BLOOD COUNT 13.7 x10^3/uL (4.8-10.8)
[2018-02-09 06:06] LABS: ALBUMIN 2.6 g/dL (3.2-5.5); ALBUMIN/GLOBULIN RATIO 0.7 (1.0-2.2); ALKALINE PHOSPHATASE 66 IU/L (42-121); ALT ALANINE AMINOTRANSFERASE 20 IU/L (10-60); AST ASPARTATE AMINOTRANSFERASE 27 IU/L (10-42); BILIRUBIN,TOTAL 0.5 mg/dL (0.2-1.0); BUN - BLOOD UREA NITROGEN 30 mg/dL (6-20); CALCIUM 7.8 mg/dL (8.5-10.3); CARBON DIOXIDE - CO2 25 mmol/L (21-32); CHLORIDE 105 mmol/L (101-111); CREATININE 1.1 mg/dL (0.6-1.2); GFR - MDRD 65 (>89); GLUCOSE 80 mg/dL (70-100); PHOSPHORUS 1.8 mg/dL (2.5-4.6); SODIUM 135 mmol/L (135-145); TOTAL PROTEIN 6.3 g/dL (6.7-8.2)
[2018-02-09 06:11] LABS: VBG PH 7.322 (7.31-7.41)
[2018-02-09] MEDS: SACCHAROMYCES BOULARDII 250 MG CAPSULE PO SCH ×2 (08:43→17:17)
[2018-02-09] MEDS: NEUTRA-PHOS 250 MG TABLET PO SCH ×2 (08:43→11:07)
[2018-02-09] MEDS: ASPIRIN CHEW 81 MG TABLET PO SCH (08:43)
[2018-02-09] MEDS: CHOLECALCIFEROL 5,000 UNIT CAPSULE PO SCH (08:43)
[2018-02-09] MEDS: ENOXAPARIN 40 MG/0.4 ML SYRINGE SUBQ SCH (08:43)
[2018-02-09] MEDS: POLYETHYLENE GLYCOL 3350 17 GM PACKET PO SCH (08:44)
[2018-02-09] MEDS: INSULIN ASPART 300 UNIT/3 ML PEN SUBQ SCH ×4 (08:44→21:39)
[2018-02-09] MEDS: INSULIN GLARGINE 300 UNIT/3 ML PEN SUBQ SCH ×2 (08:45→13:29)
--- NOTE | 2018-02-09 12:20 | PROVIDER PROGRESS NOTE ---
Subjective - Prog Note Date Prog Note Date: 02/09/18 Prog Note Time: 15:33 - Subjective Subjective: He is really cranky. He did not want to sit up in the chair. But we really strongly encouraged him to get up for his lung hygiene as well as to continue k eeping his strength. He is very unhappy about that. We ask if he seen any pain. He denies any specific pain syndrome. However he just continues to feel miserable and states "I feel like shit". "You do not know the half of it". But again he specific in saying that he does not have chest pain, belly pain, bladder pain. No headaches, severe joint pain. One daughter is in the room with him today. Current Medications - Current Medications Current Medications: Active Medications Acetaminophen (Tylenol) 650 mg PO Q4HR PRN PRN Reason: Pain 1 to 4 Albuterol () 2.5 mg INH Q4HR PRN PRN Reason: Wheezing Aspirin (St Abdulkadir Aspirin) 81 mg PO DAILY [facility] Last Admin: 02/09/18 08:43 Dose: 81 mg Atorvastatin Calcium (Lipitor) 10 mg PO QPM [facility] Last Admin: 02/08/18 20:58 Dose: 10 mg Cadexomer Iodine (Iodosorb) 1 gm TOP BID [facility] Last Admin: 02/09/18 13:33 Dose: Not Given Cholecalciferol (Vitamin D3) 5,000 unit PO DAILY [facility] Last Admin: 02/09/18 08:43 Dose: 5,000 unit Enoxaparin Sodium (Lovenox) 40 mg SUBQ DAILY [facility] Last Admin: 02/09/18 08:43 Dose: 40 mg Heparin Sodium (Beef Lung) () 30 - 50 unit IVP PRN PRN PRN Reason: Central Line Protocol (<24 hr) Last Admin: 02/09/18 15:27 Dose: 50 unit Ceftazidime 2 gm/ Sodium (Chloride) 100 mls @ 100 mls/hr IV TID [facility] Last Infusion: 02/09/18 15:12 Dose: Infused Sodium Chloride (Normal Saline 0.9%) 500 mls @ 20 mls/hr IV Q24H PRN PRN Reason: TKO RATE Last Admin: 02/09/18 03:10 Dose: 30 mls/hr Ibuprofen (Motrin) 600 mg PO Q6HR PRN PRN Reason: Pain 1 to 4 Insulin Aspart (Novolog) 1 - 5 unit SUBQ 0800,1200,1700,2100 [facility]; Protocol Last Admin: 02/09/18 13:27 Dose: Not Given Insulin Glargine (Lantus Solostar) 10 unit SUBQ DAILY [facility] Last Admin: 02/09/18 13:29 Dose: 10 unit Multivitamins/Minerals (Theragran M) 1 tab PO DAILYWM [facility] Last Admin: 02/09/18 13:27 Dose: 1 tab Ondansetron HCl (Zofran Inj) 4 mg IVP Q6HR PRN PRN Reason: Nausea / Vomiting Oxycodone HCl (Roxicodone) 5 mg PO Q4HR PRN PRN Reason: Pain 5 to 7 Last Admin: 02/08/18 09:21 Dose: 5 mg Polyethylene Glycol (Miralax) 17 gm PO DAILY [facility] Last Admin: 02/09/18 08:44 Dose: Not Given Prochlorperazine Edisylate (Compazine Inj) 10 mg IVP Q6HR PRN PRN Reason: Nausea / Vomiting Saccharomyces Boulardii (Florastor) 250 mg PO BIDWM [facility] Last Admin: 02/09/18 08:43 Dose: 250 mg Sodium Chloride (Normal Saline Flush 0.9%) 10 ml IVP PRN PRN PRN Reason: NEEDED PER PROVIDER ORDERS Last Admin: 02/09/18 15:22 Dose: 30 ml Sodium Chloride (Normal Saline Flush 0.9%) 10 ml IVP 0100,0900,1700 [facility] Last Admin: 02/09/18 09:02 Dose: Not Given Sodium Chloride (Normal Saline Flush 0.9%) 10 ml IVP 0100,0900,1700 [facility] Last Admin: 02/09/18 08:45 Dose: 10 ml Sodium Chloride (Normal Saline Flush 0.9%) 10 ml IVP PRN PRN PRN Reason: NEEDED PER PROVIDER ORDERS Last Admin: 02/09/18 15:22 Dose: 10 ml Sodium Chloride (Normal Saline Flush 0.9%) 10 ml IVP PRN PRN PRN Reason: NEEDED PER PROVIDER ORDERS Aspirin [Children's Aspirin] 81 mg PO DAILY 05/04/13 Cholecalciferol (Vitamin D3) [Vitamin D] 5,000 unit PO DAILY 05/04/13 Furosemide [Lasix] 20 mg PO BIDDIURETIC 05/04/13 Insulin Glargine,Hum.rec.anlog [Lantus] 30 unit SQ DAILY 05/04/13 Lisinopril 20 mg PO DAILY 05/04/13 Simvastatin [Zocor] 20 mg PO QPM 05/04/13 Objective - Vital Signs/Intake & Output Reviewed Vital Signs: Yes Vital Signs: Vital Signs Pulse Resp BP Pulse Ox 02/09/18 11:00 60 10 L 102/72 100 02/09/18 10:00 62 17 101/51 L 100 02/09/18 09:00 62 18 109/57 L 100 Intake & Output: Intake & Output 02/06/18 02/07/18 02/08/18 02/09/18 23:59 23:59 23:59 23:59 Intake Total 2200 3153.020 654.625 Output Total 20 550 Balance 2200 3133.020 104.625 - Objective General Appearance: positive: No acute distress, Alert, Other (He is just so tired. Sitting in the chair is taking all the effort he has in his head is hanging low and his chin is almost touching his chest. It takes a lot of effort for him to lift up his head and look at me.Short statured severe, severely obese, white male who looks stated age, well-groomed well-nourished with a mac and mustache) Eyes Bilateral: positive: PERRL, EOMI ENT: positive: Pharynx nml Neck: positive: No JVD. negative: Stiff neck, Carotid bruit Respiratory: positive: Chest non-tender, Rhonchi, Other (Increased respiratory rate with talking and exertion but he is not using his accessory muscles.) Cardiovascular: positive: Regular rate & rhythm, Systolic murmur. negative: Gallop/S4, Friction rub Abdomen: positive: Non-tender, Nml bowel sounds, No distention, Other (Very large pannus, difficult to assess for any masses). negative: Guarding, Rebound Skin: positive: Warm, Dry, Other (I still have not seen his right leg. It was covered by an Zac wrap by the wound clinic a week ago. Is not to be uncovered until later on this week. Above and below the Zac wrap the skin is pale, dry. There is no cellulitis, no edema no redness no heat.) Extremities: positive: Non-tender, Pedal edema (Mild. 1+.) Neurologic/Psychiatric: positive: Oriented x3, CN's nml (2-12), Motor nml, Weakness, Depressed mood/affect - Lab Results Fish Bones: 02/09/18 05:40 02/09/18 05:40 Other Labs: Lab Results x24hrs 02/09/18 02/09/18 02/09/18 Range/Units 05:40 05:40 05:40 WBC 13.7 H (4.8-10.8) x10^3/uL RBC 3.20 L (4.70-6.10) 10^6/uL Hgb 9.8 L (14.0-18.0) g/dL Hct 28.7 L (42.0-52.0) % MCV 89.6 (80.0-94.0) fL MCH 30.5 (27.0-31.0) pg MCHC 34.1 (32.0-36.0) g/dL RDW 15.8 H (12.0-15.0) % Plt Count 134 (130-450) 10^3/uL MPV 7.2 L (7.4-11.4) fL Neut # (Auto) 11.7 H (1.5-6.6) 10^3/uL Lymph # (Auto) 1.1 L (1.5-3.5) 10^3/uL [place] # (Auto) 0.7 (0.0-1.0) 10^3/uL Eos # (Auto) 0.2 (0.0-0.7) 10^3/uL Baso # (Auto) 0.1 (0.0-0.1) 10^3/uL Absolute Nucleated RBC 0.00 x10^3/uL Nucleated RBC % 0.0 /100WBC VBG pH 7.322 (7.31-7.41) Ionized Calcium 1.10 L YES (1.15-1.33) mmol/L Sodium 135 (135-145) mmol/L Potassium 3.7 (3.5-5.0) mmol/L Chloride 105 (101-111) mmol/L Carbon Dioxide 25 (21-32) mmol/L Anion Gap 5.0 L (6-13) BUN 30 H (6-20) mg/dL Creatinine 1.1 (0.6-1.2) mg/dL Estimated GFR (MDRD) 65 L (>89) Glucose 80 (70-100) mg/dL Calcium 7.8 L (8.5-10.3) mg/dL Phosphorus 1.8 L (2.5-4.6) mg/dL Magnesium 2.0 (1.7-2.8) mg/dL Total Bilirubin 0.5 (0.2-1.0) mg/dL AST 27 (10-42) IU/L ALT 20 (10-60) IU/L Alkaline Phosphatase 66 (42-121) IU/L Total Protein 6.3 L (6.7-8.2) g/dL Albumin 2.6 L (3.2-5.5) g/dL Globulin 3.7 (2.1-4.2) g/dL Albumin/Globulin Ratio 0.7 L (1.0-2.2) Random Gentamicin ug/mL 02/08/18 Range/Units 20:03 WBC (4.8-10.8) x10^3/uL RBC (4.70-6.10) 10^6/uL Hgb (14.0-18.0) g/dL Hct (42.0-52.0) % MCV (80.0-94.0) fL MCH (27.0-31.0) pg MCHC (32.0-36.0) g/dL RDW (12.0-15.0) % Plt Count (130-450) 10^3/uL MPV (7.4-11.4) fL Neut # (Auto) (1.5-6.6) 10^3/uL Lymph # (Auto) (1.5-3.5) 10^3/uL [place] # (Auto) (0.0-1.0) 10^3/uL Eos # (Auto) (0.0-0.7) 10^3/uL Baso # (Auto) (0.0-0.1) 10^3/uL Absolute Nucleated RBC x10^3/uL Nucleated RBC % /100WBC VBG pH (7.31-7.41) Ionized Calcium (1.15-1.33) mmol/L Sodium (135-145) mmol/L Potassium (3.5-5.0) mmol/L Chloride (101-111) mmol/L Carbon Dioxide (21-32) mmol/L Anion Gap (6-13) BUN (6-20) mg/dL Creatinine (0.6-1.2) mg/dL Estimated GFR (MDRD) (>89) Glucose (70-100) mg/dL Calcium (8.5-10.3) mg/dL Phosphorus (2.5-4.6) mg/dL Magnesium (1.7-2.8) mg/dL Total Bilirubin (0.2-1.0) mg/dL AST (10-42) IU/L ALT (10-60) IU/L Alkaline Phosphatase (42-121) IU/L Total Protein (6.7-8.2) g/dL Albumin (3.2-5.5) g/dL Globulin (2.1-4.2) g/dL Albumin/Globulin Ratio (1.0-2.2) Random Gentamicin 14.0 H* ug/mL Assessment/Plan - Problem List (1) Sepsis Impression: Patient presents to the emergency department with altered mental status and lethargy. The patient's blood work revealed a bandemia of 23%. On presentation the patient had a temperature of 38.9 C, he was tachycardic up to 100 and tachypneic up to 24. Given the 4 out of 4 Sirs criteria with altered mental status the patient presented with sepsis. Patient's lactic acid was normal and blood pressure remained stable. The patient's chest x-ray revealed bilateral interstitial inflammation consistent with likely pneumonia. Patient was admitted for sepsis secondary to pneumonia. He also had a urinary tract infection. He was changed from Rocephin to azithromycin after 1 dose. Then he got Levaquin 1 dose when UTI identified. He continued to have rigor's, hypotension, and a rising lactic acid in spite of resuscitation morning of 02/08. Blood cultures were growing a gram negative bacilli. In review of the literature, the algorithm for sepsis with an immunocompromised patient shows treatment should be on combination therapy with 2 antipseudomonal agents. He was transferred to ICU and started on ceftazidime plus gentamicin. Gentamicin trough level is quite high. Final identification of the gram-negative bacilli is E. coli for blood and urine. By this morning, mcg of levophed went from 8>6>2 and he has been off levophed since 07:00 Plan: IV ceftriaxone and IV azithromycin s/p 1 dose each IV levaquin s/p 1 dose change to cetazidime and gentamicin Day #2. DC gentamicin. IV fluids Blood cultures to be watched for sensitivity Monitor closely repeat lactic acid showed response to resuscitation Transferred to ICU, now Day #2. (2) CAP (community acquired pneumonia) Conclusion/Plan: Patient presented to the emergency met with altered mental status and was found to be septic. Patient's chest x-ray showed bilateral interstitial prominence concerning for pneumonia. Given that the patient was hypoxic on presentation with a bandemia and fever as well as tachypneic patient was admitted for community-acquired pneumonia. Plan: IV ceftriaxone and IV azithromycin s/p 1 dose each IV levaquin s/p 1 dose change to cetazidime and gentamicin Day #2. Stop gent and stay on ceftazidime IV fluids Supplemental oxygen Nebs as needed Qualifiers: Laterality: unspecified laterality Qualified Code(s): J18.9 - Pneumonia, unspecified organism (3) Metabolic encephalopathy Conclusion/Plan: Almost resolved today. He is up in chair very unhappy we made him get up. Verbal. On presentation to the emergency department the patient was lethargic and confused. The patient states he had been in and out all day and could not remember what had transpired. With antibiotics and fluids the patient did have improvement in his mentation. The patient's presentation was concerning for metabolic encephalopathy secondary to sepsis and community-acquired pneumonia. The patient was treated for pneumonia/UTI and sepsis and orientation and alertness almost normal. He's just very, very, very cranky. On third day of admission he is about baseline according to daughter. But still very tired and keeps stating "I feel like shit" (4) Diabetes Conclusion/Plan: Patient is a history of type 2 diabetes mellitus and is on insulin at home. The patient takes Lantus 30 units subcutaneous daily. The patient does not take any mealtime insulin. On presentation to the emergency department the patient's blood glucose is mildly elevated at 147.Second day he was 97. He is on Lantus 30 units daily and sliding scale insulin. I decreased Lantus to 20units and he's still low this am at 80 Plan: Diabetic diet Monitor blood glucose before meals at bedtime Reduce home dose of Lantus daily from 30 units to 20 units and now to 10 units. Hold for this am. 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 The patient was septic on presentation therefore we held his antihypertensive medications for now. Patient will be given IV fluids and we will continue to monitor his blood pressure closely. 02/08 morning he had been 91 systolic up to 99 systolic and with levophed 108/62. This am, off the levophed he is 102/72. On a 4 L oxygen mask he is on 100% saturated. Qualifiers: Hypertension type: essential hypertension Qualified Code(s): I10 - Essential (primary) hypertension (6) Hyperlipidemia Conclusion/Plan: Patient has a history of hyperlipidemia and is on Zocor at home we will continue him on statins while he is hospitalized. Qualifiers: Hyperlipidemia type: unspecified Qualified Code(s): E78.5 - Hyperlipidemia, unspecified (7) acute diastolic CHF (congestive heart failure) Conclusion/Plan: The patient states that he has a history of congestive heart failure but he is not sure if it is systolic or diastolic. We do not have any previous records of an echocardiogram or the specific kind of heart failure he has. The patient states that he takes water pills and has fluid retention. The patient is not on any home oxygen and he does not appear to have significant limitations in his physical activity or overt symptoms due to his CHF. The patient will be classified as an NYHA class I. Preliminary ECHO: Overall left ventricular systolic function is normal with an ejection fraction of 60-65%. Grade 1 diastolic dysfunction. No wall motion abnormalities. Mild to moderate right ventricular enlargement. Right ventricular systolic function normal. Mild increase in left atrial volume. Severe increased right atrial volume. Right ventricular systolic pressure at rest is 47 mmHg. Plan: We will hold the patient's Lasix and lisinopril secondary to borderline hypotension in the setting of sepsis. We will give the patient IV fluids but will be gentle with hydration given his history of CHF Qualifiers: Heart failure type: unspecified Heart failure chronicity: chronic Qualified Code(s): I50.9 - Heart failure, unspecified
[2018-02-09] MEDS ORDERED: CADEXOMER IODINE TOP SCH (13:00)
[2018-02-09] MEDS: MULTIVITAMIN W/MINERALS TABLET PO SCH (13:27)
[2018-02-09] MEDS: CADEXOMER IODINE GEL 40 GM TUBE TOP SCH ×2 (13:33→21:40)
[2018-02-09] MEDS: oxyCODONE 5 MG TABLET PO PRN (19:18)
[2018-02-09] MEDS: ATORVASTATIN 10 MG TABLET PO SCH (21:35)
[2018-02-10] MEDS: SODIUM CHLORIDE FLUSH 0.9% 10 ML SYRINGE IVP PRN ×3 (05:01→05:58)
[2018-02-10 05:32] LABS: BASOPHILS % (AUTO) 0.3 %; EOSINOPHILS # (AUTO) 0.3 10^3/uL (0.0-0.7); EOSINOPHILS % (AUTO) 2.6 %; HGB - HEMOGLOBIN 10.5 g/dL (14.0-18.0); LYMPHOCYTES % (AUTO) 9.4 %; MEAN CORPUSCULAR HEMOGLOBIN 30.2 pg (27.0-31.0); MEAN CORPUSCULAR HGB CONC 33.7 g/dL (32.0-36.0); MEAN CORPUSCULAR VOLUME 89.6 fL (80.0-94.0); MEAN PLATELET VOLUME 7.6 fL (7.4-11.4); MONOCYTES # (AUTO) 0.7 10^3/uL (0.0-1.0); NEUTROPHILS # (AUTO) 8.3 10^3/uL (1.5-6.6); NEUTROPHILS % (AUTO) 80.7 %; PLT - PLATELET COUNT 145 10^3/uL (130-450); RED BLOOD COUNT 3.47 10^6/uL (4.70-6.10); RED CELL DISTRIBUTION WIDTH 15.5 % (12.0-15.0); WHITE BLOOD COUNT 10.3 x10^3/uL (4.8-10.8)
[2018-02-10 05:49] LABS: ALBUMIN 2.7 g/dL (3.2-5.5); ALBUMIN/GLOBULIN RATIO 0.7 (1.0-2.2); ALKALINE PHOSPHATASE 63 IU/L (42-121); ALT ALANINE AMINOTRANSFERASE 20 IU/L (10-60); AST ASPARTATE AMINOTRANSFERASE 25 IU/L (10-42); BILIRUBIN,TOTAL 0.4 mg/dL (0.2-1.0); BUN - BLOOD UREA NITROGEN 22 mg/dL (6-20); CALCIUM 8.7 mg/dL (8.5-10.3); CARBON DIOXIDE - CO2 28 mmol/L (21-32); CHLORIDE 105 mmol/L (101-111); CREATININE 0.9 mg/dL (0.6-1.2); GFR - MDRD 82 (>89); GLUCOSE 134 mg/dL (70-100); SODIUM 139 mmol/L (135-145); TOTAL PROTEIN 6.4 g/dL (6.7-8.2)
[2018-02-10] MEDS: cefTAZidime 2 GM in SODIUM CHLORIDE 0.9% MINIBAG 100 ML IV SCH (05:58)
[2018-02-10 06:36] LABS: PHOSPHORUS 2.7 mg/dL (2.5-4.6)
[2018-02-10] MEDS: ENOXAPARIN 40 MG/0.4 ML SYRINGE SUBQ SCH (08:02)
[2018-02-10] MEDS: SACCHAROMYCES BOULARDII 250 MG CAPSULE PO SCH ×2 (08:02→17:11)
[2018-02-10] MEDS: ASPIRIN CHEW 81 MG TABLET PO SCH (08:02)
[2018-02-10] MEDS: MULTIVITAMIN W/MINERALS TABLET PO SCH (08:02)
[2018-02-10] MEDS: CHOLECALCIFEROL 5,000 UNIT CAPSULE PO SCH (08:02)
[2018-02-10] MEDS: INSULIN GLARGINE 300 UNIT/3 ML PEN SUBQ SCH (08:03)
[2018-02-10] MEDS: INSULIN ASPART 300 UNIT/3 ML PEN SUBQ SCH ×4 (08:05→21:45)
[2018-02-10] MEDS: SODIUM CHLORIDE FLUSH 0.9% 10 ML SYRINGE IVP SCH ×4 (08:14→17:12)
[2018-02-10] MEDS: POLYETHYLENE GLYCOL 3350 17 GM PACKET PO SCH (08:15)
[2018-02-10] MEDS: CADEXOMER IODINE GEL 40 GM TUBE TOP SCH ×2 (08:16→21:47)
--- NOTE | 2018-02-10 10:41 | PROVIDER PROGRESS NOTE ---
Assessment/Plan - Problem List (1) CAP (community acquired pneumonia) Qualifiers: Laterality: unspecified laterality Qualified Code(s): J18.9 - Pneumonia, unspecified organism Assessment/Plan: Pt not SOB and on room air. No positive spt cultures. Continue antibiotics. Will change to po antibiotics today. (2) E. coli bacteremia Assessment/Plan: This was likely the cause of sepsis. The bacteria has the same sensiticvity profile as the urine culture which grew E. coli. Will stop Ceftazidime and start oral Augmentin 875/125 po bid. Continue Florastor. Will transfer out of ICU today. Will leave in central iv line until tomorrow, in case her worsens. (3) E. coli UTI (urinary tract infection) Assessment/Plan: The bacteria has the same sensitivity profile as the blood culture which grew E. coli. Will stop Ceftazidime and start oral Augmentin 875/125 po bid. Will plan a 21 day course of treatment in a male, to achieve prostate penetration. Continue Florastor. 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 (5) Chronic ulcer of right leg Assessment/Plan: The leg wound culture from 1 month ago grew Pseudomonas. He has been seen by [facility] nurse yesterday, who recommended topical treatment, no oral antibiotic. (6) Sepsis Assessment/Plan: Resolved. Will transfer out of ICU today. Will leave in central iv line until tomorrow, in case her worsens. - Current Meds Current Meds: Current Medications Generic Name Dose Route Start Last Admin Trade Name Freq PRN Reason Stop Dose Admin Aspirin 81 mg 02/08/18 09:00 02/10/18 08:02 [facility] Aspirin PO 81 mg DAILY FARIDA Administration Atorvastatin Calcium 10 mg 02/08/18 21:00 02/09/18 21:35 Lipitor PO 10 mg QPM FARIDA Administration Cadexomer Iodine 1 gm 02/09/18 14:00 02/10/18 08:16 Iodosorb TOP 1 gm BID FARIDA Administration Cholecalciferol 5,000 unit 02/08/18 09:00 02/10/18 08:02 Vitamin D3 PO 5,000 unit DAILY FARIDA Administration Enoxaparin Sodium 40 mg 02/08/18 09:00 02/10/18 08:02 Lovenox SUBQ 40 mg DAILY FARIDA Administration Heparin Sodium (Beef Lung) 30 - 50 unit 02/08/18 14:40 02/10/18 05:02 IVP 50 unit PRN PRN Administration Central Line Protocol (<24 hr) Ceftazidime 2 gm/ Sodium 100 mls @ 100 mls/hr 02/08/18 12:00 02/10/18 07:26 Chloride IV Infused TID FARIDA Infusion Sodium Chloride 500 mls @ 20 mls/hr 02/08/18 21:02 02/09/18 21:25 Normal Saline 0.9% IV Infused Q24H PRN Infusion TKO RATE TKO Insulin Aspart 1 - 5 unit 02/08/18 08:00 02/10/18 08:05 Novolog SUBQ Not Given 0800,1200,1700,2100 [facility] Protocol Insulin Glargine 10 unit 02/09/18 13:00 02/10/18 08:03 Lantus Solostar SUBQ 10 unit DAILY FARIDA Administration Multivitamins/Minerals 1 tab 02/09/18 12:00 02/10/18 08:02 Theragran M PO 1 tab DAILYWM FARIDA Administration Oxycodone HCl 5 mg 02/07/18 22:25 02/09/18 19:18 Roxicodone PO 5 mg Q4HR PRN Administration Pain 5 to 7 Polyethylene Glycol 17 gm 02/08/18 09:00 02/10/18 08:15 Miralax PO 17 gm DAILY FARIDA Administration Saccharomyces Boulardii 250 mg 02/08/18 08:00 02/10/18 08:02 Florastor PO 250 mg BIDWM FARIDA Administration Sodium Chloride 10 ml 02/07/18 22:25 02/10/18 05:58 Normal Saline Flush 0.9% IVP 10 ml PRN PRN Administration NEEDED PER PROVIDER ORDERS Sodium Chloride 10 ml 02/08/18 01:00 02/10/18 08:15 Normal Saline Flush 0.9% IVP 10 ml 0100,0900,1700 FARIDA Administration Sodium Chloride 10 ml 02/08/18 17:00 02/10/18 08:16 Normal Saline Flush 0.9% IVP 10 ml 0100,0900,1700 FARIDA Administration Sodium Chloride 10 ml 02/08/18 11:37 02/09/18 15:22 Normal Saline Flush 0.9% IVP 10 ml PRN PRN Administration NEEDED PER PROVIDER ORDERS Sodium Chloride 10 ml 02/08/18 14:40 02/10/18 05:01 Normal Saline Flush 0.9% IVP 10 ml PRN PRN Administration NEEDED PER PROVIDER ORDERS - Lab Result Lab results reviewed: Yes Fish Bone Diagrams: 02/10/18 05:09 02/10/18 05:09 - Additional Planning My Orders: My Active Orders 02/10/18 10:27 Transfer [Admit \ Transfer \ Status] [RC] .ONCE Subjective - Subjective Patient Reports: Resting Comfortably Nursing Reports: Other (Does not want to get OOB) Objective Vital Signs: Vital Signs - 24 hr 02/09/18 02/09/18 02/09/18 11:00 12:00 13:00 Temperature 36.8 C Heart Rate Heart Rate [ Activity] Heart Rate [ 60 62 60 Brachial] Heart Rate [ Sitting] Respiratory 10 L 12 98 H Rate Blood Pressure [Activity] Blood Pressure [Left Radial artery] Blood Pressure 102/72 111/75 101/60 [Right Brachial artery] Blood Pressure [Sitting] O2 Saturation 100 100 02/09/18 02/09/18 02/09/18 14:00 15:00 15:25 Temperature Heart Rate Heart Rate [ 67 Activity] Heart Rate [ 62 63 Brachial] Heart Rate [ 66 Sitting] Respiratory 21 13 Rate Blood Pressure 102/72 [Activity] Blood Pressure [Left Radial artery] Blood Pressure 115/82 H 120/72 [Right Brachial artery] Blood Pressure 120/72 [Sitting] O2 Saturation 100 100 02/09/18 02/09/18 02/09/18 16:00 17:00 18:00 Temperature 36.8 C Heart Rate Heart Rate [ Activity] Heart Rate [ 62 66 69 Brachial] Heart Rate [ Sitting] Respiratory 20 16 21 Rate Blood Pressure [Activity] Blood Pressure 113/73 [Left Radial artery] Blood Pressure 121/76 [Right Brachial artery] Blood Pressure [Sitting] O2 Saturation 100 100 100 02/09/18 02/09/18 02/09/18 19:00 19:23 20:00 Temperature 37.2 C Heart Rate Heart Rate [ Activity] Heart Rate [ 72 73 67 Brachial] Heart Rate [ Sitting] Respiratory 18 14 16 Rate Blood Pressure [Activity] Blood Pressure 113/73 128/71 [Left Radial artery] Blood Pressure [Right Brachial artery] Blood Pressure [Sitting] O2 Saturation 98 98 97 02/09/18 02/09/18 02/09/18 21:00 22:00 23:00 Temperature Heart Rate 65 Heart Rate [ Activity] Heart Rate [ 72 67 65 Brachial] Heart Rate [ Sitting] Respiratory 18 16 16 Rate Blood Pressure [Activity] Blood Pressure 127/81 H 122/75 124/67 [Left Radial artery] Blood Pressure [Right Brachial artery] Blood Pressure [Sitting] O2 Saturation 97 98 97 02/09/18 02/10/18 02/10/18 23:43 00:00 01:00 Temperature 36.8 C Heart Rate Heart Rate [ Activity] Heart Rate [ 77 65 67 Brachial] Heart Rate [ Sitting] Respiratory 17 14 Rate Blood Pressure [Activity] Blood Pressure 124/65 128/62 [Left Radial artery] Blood Pressure [Right Brachial artery] Blood Pressure [Sitting] O2 Saturation 99 97 97 02/10/18 02/10/18 02/10/18 02:00 03:00 04:00 Temperature Heart Rate Heart Rate [ Activity] Heart Rate [ 64 62 64 Brachial] Heart Rate [ Sitting] Respiratory 14 13 14 Rate Blood Pressure [Activity] Blood Pressure 140/75 H 106/55 L 102/54 L [Left Radial artery] Blood Pressure [Right Brachial artery] Blood Pressure [Sitting] O2 Saturation 97 97 96 02/10/18 02/10/18 02/10/18 05:00 06:00 07:00 Temperature 37.1 C Heart Rate Heart Rate [ Activity] Heart Rate [ 62 67 66 Brachial] Heart Rate [ Sitting] Respiratory 17 16 16 Rate Blood Pressure [Activity] Blood Pressure 108/52 L 147/73 H 147/72 H [Left Radial artery] Blood Pressure [Right Brachial artery] Blood Pressure [Sitting] O2 Saturation 97 97 97 02/10/18 02/10/18 08:00 09:00 Temperature 37.1 C Heart Rate Heart Rate [ Activity] Heart Rate [ 60 68 Brachial] Heart Rate [ Sitting] Respiratory 16 12 Rate Blood Pressure [Activity] Blood Pressure [Left Radial artery] Blood Pressure 101/44 L 106/59 L [Right Brachial artery] Blood Pressure [Sitting] O2 Saturation 97 96 Oxygen O2 Source Room air Oxygen Flow Rate 3 I&O (Last 24 Hrs): Intake and Output Totals x24h 02/08/18 02/09/18 02/10/18 23:59 23:59 23:59 Intake Total 3153.020 2204.625 550 Output Total 20 1350 Balance 3133.020 854.625 550 General: Alert, Oriented x3 HEENT: Mucous membr. moist/pink Neck: Supple, No JVD Neuro: Non Focal Cardiovascular: No murmurs Respiratory: No respiratory distress, Breath sounds nml Abdomen: Soft Extremities: Other (2+ edema, R contreras bandaged, L has venous stasis discoloration of contreras) - Results Results: Laboratory Results WBC 10.3 x10^3/uL (4.8-10.8) 02/10/18 05:09 RBC 3.47 10^6/uL (4.70-6.10) L 02/10/18 05:09 Hgb 10.5 g/dL (14.0-18.0) L 02/10/18 05:09 Hct 31.1 % (42.0-52.0) L 02/10/18 05:09 MCV 89.6 fL (80.0-94.0) 02/10/18 05:09 MCH 30.2 pg (27.0-31.0) 02/10/18 05:09 MCHC 33.7 g/dL (32.0-36.0) 02/10/18 05:09 RDW 15.5 % (12.0-15.0) H 02/10/18 05:09 Plt Count 145 10^3/uL (130-450) 02/10/18 05:09 MPV 7.6 fL (7.4-11.4) 02/10/18 05:09 Neut # (Auto) 8.3 10^3/uL (1.5-6.6) H 02/10/18 05:09 Lymph # (Auto) 1.0 10^3/uL (1.5-3.5) L 02/10/18 05:09 [place] # (Auto) 0.7 10^3/uL (0.0-1.0) 02/10/18 05:09 Eos # (Auto) 0.3 10^3/uL (0.0-0.7) 02/10/18 05:09 Baso # (Auto) 0.0 10^3/uL (0.0-0.1) 02/10/18 05:09 Absolute Nucleated RBC 0.00 x10^3/uL 02/10/18 05:09 Total Counted 100 02/07/18 21:45 Band Neuts % (Manual) Not Reportable 02/08/18 06:45 Abnorm Lymph % (Manual) Not Reportable 02/08/18 06:45 Nucleated RBC % 0.0 /100WBC 02/10/18 05:09 Neutrophils # (Manual) Not Reportable 02/08/18 06:45 Lymphocytes # (Manual) Not Reportable 02/08/18 06:45 Monocytes # (Manual) Not Reportable 02/08/18 06:45 Eosinophils # (Manual) Not Reportable 02/08/18 06:45 Basophils # (Manual) Not Reportable 02/08/18 06:45 Differential Comment MANUAL=AUTO DIFF 02/08/18 06:45 Manual Slide Review Indicated 02/07/18 21:45 WBC Morphology NORMAL APPEARANCE (NORMAL) 02/07/18 21:45 Platelet Estimate NORMAL (130-450,000) (NORMAL) 02/08/18 06:45 Platelet Morphology NORMAL APPEARANCE (NORMAL) 02/07/18 21:45 RBC Morph Micro Appear NORMAL APPEARANCE (NORMAL) 02/08/18 06:45 PT 14.3 secs (9.9-12.6) H 02/07/18 21:45 INR 1.3 (0.8-1.2) H 02/07/18 21:45 APTT 23.2 secs (24.9-33.3) L 02/07/18 21:45 VBG pH 7.322 (7.31-7.41) 02/09/18 05:40 VBG pCO2 34.5 mmHg (41-51) L 02/07/18 21:45 VBG pO2 79.6 mmHg (25-47) H 02/07/18 21:45 VBG HCO3 21.4 mmol/L (23-28) L 02/07/18 21:45 VBG Total CO2 22.5 mmol/L (24-29) L 02/07/18 21:45 VBG O2 Saturation 95.3 % (60-80) H 02/07/18 21:45 VBG Base Excess -2.6 mmol/L (-2 - +2) L 02/07/18 21:45 Ionized Calcium 1.10 mmol/L (1.15-1.33) L 02/09/18 05:40 Sodium 139 mmol/L (135-145) 02/10/18 05:09 Potassium 4.0 mmol/L (3.5-5.0) 02/10/18 05:09 Chloride 105 mmol/L (101-111) 02/10/18 05:09 Carbon Dioxide 28 mmol/L (21-32) 02/10/18 05:09 Anion Gap 6.0 (6-13) 02/10/18 05:09 BUN 22 mg/dL (6-20) H 02/10/18 05:09 Creatinine 0.9 mg/dL (0.6-1.2) 02/10/18 05:09 Estimated GFR (MDRD) 82 (>89) L 02/10/18 05:09 Glucose 134 mg/dL (70-100) H 02/10/18 05:09 Glycated Hemoglobin 5.9 % (4.6-6.2) 02/08/18 06:45 Estim Average Glucose 123 (70-100) H 02/08/18 06:45 Lactic Acid 1.7 mmol/L (0.5-2.2) 02/08/18 10:55 Calcium 8.7 mg/dL (8.5-10.3) 02/10/18 05:09 Ionized Calcium NO 02/10/18 05:09 Phosphorus 2.7 mg/dL (2.5-4.6) 02/10/18 05:09 Magnesium 2.0 mg/dL (1.7-2.8) 02/10/18 05:09 Total Bilirubin 0.4 mg/dL (0.2-1.0) 02/10/18 05:09 AST 25 IU/L (10-42) 02/10/18 05:09 ALT 20 IU/L (10-60) 02/10/18 05:09 Alkaline Phosphatase 63 IU/L (42-121) 02/10/18 05:09 Troponin I 0.04 ng/mL (<0.49) 02/07/18 21:45 B-Natriuretic Peptide 211 pg/mL (5-100) H 02/07/18 21:45 Total Protein 6.4 g/dL (6.7-8.2) L 02/10/18 05:09 Albumin 2.7 g/dL (3.2-5.5) L 02/10/18 05:09 Globulin 3.7 g/dL (2.1-4.2) 02/10/18 05:09 Albumin/Globulin Ratio 0.7 (1.0-2.2) L 02/10/18 05:09 Lipase 21 U/L (22-51) L 02/07/18 21:45 Urine Color YELLOW 02/08/18 02:00 Urine Clarity SL. CLOUDY (CLEAR) 02/08/18 02:00 Urine pH 6.0 PH (5.0-7.5) 02/08/18 02:00 Ur Specific [place] 1.025 (1.002-1.030) 02/08/18 02:00 Urine Protein 30 mg/dL (NEGATIVE) H 02/08/18 02:00 Urine Glucose (UA) NEGATIVE mg/dL (NEGATIVE) 02/08/18 02:00 Urine Ketones NEGATIVE mg/dL (NEGATIVE) 02/08/18 02:00 Urine Occult Blood MODERATE (NEGATIVE) H 02/08/18 02:00 Urine Nitrite NEGATIVE (NEGATIVE) 02/08/18 02:00 Urine Bilirubin NEGATIVE (NEGATIVE) 02/08/18 02:00 Urine Urobilinogen 0.2 (NORMAL) E.U./dL (NORMAL) 02/08/18 02:00 Ur Leukocyte Esterase LARGE (NEGATIVE) H 02/08/18 02:00 Urine RBC 6-10 /HPF (0-5) H 02/08/18 02:00 Urine WBC >25 /HPF (0-3) H 02/08/18 02:00 Ur Squamous Epith Cells NONE SEEN (<= Few) 02/08/18 02:00 Urine Bacteria Few /HPF (None Seen) 02/08/18 02:00 Ur Microscopic Review INDICATED 02/08/18 02:00 Urine Culture Comments INDICATED 02/08/18 02:00 Random Gentamicin 14.0 ug/mL H* 02/08/18 20:03 Serum Ketones SMALL (NEGATIVE) H 02/07/18 21:45 Influenza A (Rapid) Negative (Negative) 02/07/18 19:29 Influenza B (Rapid) Negative (Negative) 02/07/18 19:29 ABX Reporting Has patient been on IV antibiotics over the past 48 hours?: Yes
[2018-02-10] MEDS: AMOX/CLAV 875 MG/125 MG TABLET PO SCH ×2 (11:22→21:45)
[2018-02-10] MEDS: ATORVASTATIN 10 MG TABLET PO SCH (21:45)
[2018-02-10] MEDS: oxyCODONE 5 MG TABLET PO PRN (22:07)
[2018-02-11] MEDS: SODIUM CHLORIDE FLUSH 0.9% 10 ML SYRINGE IVP SCH ×2 (00:24→08:11)
[2018-02-11 06:08] LABS: ALBUMIN 2.8 g/dL (3.2-5.5); ALBUMIN/GLOBULIN RATIO 0.8 (1.0-2.2); ALKALINE PHOSPHATASE 62 IU/L (42-121); ALT ALANINE AMINOTRANSFERASE 19 IU/L (10-60); AST ASPARTATE AMINOTRANSFERASE 21 IU/L (10-42); BILIRUBIN,TOTAL 0.5 mg/dL (0.2-1.0); BUN - BLOOD UREA NITROGEN 20 mg/dL (6-20); CALCIUM 8.9 mg/dL (8.5-10.3); CARBON DIOXIDE - CO2 29 mmol/L (21-32); CHLORIDE 106 mmol/L (101-111); CREATININE 0.8 mg/dL (0.6-1.2); GFR - MDRD 94 (>89); GLUCOSE 107 mg/dL (70-100); MAGNESIUM 1.7 mg/dL (1.7-2.8); PHOSPHORUS 3.1 mg/dL (2.5-4.6); SODIUM 139 mmol/L (135-145); TOTAL PROTEIN 6.4 g/dL (6.7-8.2)
[2018-02-11] MEDS: INSULIN ASPART 300 UNIT/3 ML PEN SUBQ SCH ×2 (07:58→12:14)
[2018-02-11] MEDS: ASPIRIN CHEW 81 MG TABLET PO SCH (08:09)
[2018-02-11] MEDS: CHOLECALCIFEROL 5,000 UNIT CAPSULE PO SCH (08:09)
[2018-02-11] MEDS: MULTIVITAMIN W/MINERALS TABLET PO SCH (08:09)
[2018-02-11] MEDS: CADEXOMER IODINE GEL 40 GM TUBE TOP SCH (08:09)
[2018-02-11] MEDS: AMOX/CLAV 875 MG/125 MG TABLET PO SCH (08:09)
[2018-02-11] MEDS: SACCHAROMYCES BOULARDII 250 MG CAPSULE PO SCH (08:09)
[2018-02-11] MEDS: ENOXAPARIN 40 MG/0.4 ML SYRINGE SUBQ SCH (08:10)
[2018-02-11] MEDS: POLYETHYLENE GLYCOL 3350 17 GM PACKET PO SCH (08:10)
[2018-02-11] MEDS: SODIUM CHLORIDE FLUSH 0.9% 10 ML SYRINGE IVP PRN (08:15)
[2018-02-11] MEDS: INSULIN GLARGINE 300 UNIT/3 ML PEN SUBQ SCH (08:17)
--- NOTE | 2018-02-11 11:42 | Discharge Plan ---
Discharge Plan Disposition: Home, Self Care Condition: Stable Prescriptions: Amox/Clav 875/125 [Augmentin 875/125] 1 tab PO BID #28 tablet Saccharomyces Boulardii [Florastor] 250 mg PO BID #28 capsule Diet: Diabetic Activity Restrictions: Activity as Tolerated Shower Restrictions: No Assistance Devices: Walker Weight Bearing: Full Weight Instruction Topics: UTI Additional Instructions or Follow Up instructions: You were admitted with a pneumonia and a urinary tract infection that got into your bloodstream. Please finish the course of antibiotics that you are being sent home with. Resume all your other pre-hospital medications. Continue going to [facility] weekly as you did before. See your PCP in 5-7 days in follow-up. If you have new or worsening symptoms, return to the ER. No Smoking: If you smoke, Please STOP! Call for help. Follow-up with: Giorgi Epps MD [Primary Care Provider] -
[2018-02-11 15:33] VITALS: BP 151/81
--- NOTE | 2018-02-19 12:39 | DISCHARGE SUMMARY ---
Physician: Briana Blunt MD DATE OF ADMISSION: 02/07/2018 DATE OF DISCHARGE: 02/11/2018 HISTORY OF PRESENT ILLNESS: This is a 72-year-old white male with a history of morbid obesity, diabetes, chronic leg wound for which he is followed in the [facility] [place] [facility], hypertension, hyperlipidemia, diastolic heart failure. The patient presented with 1 day of lethargy, shaking chills and in the emergency room, was noted to have a fever of 38.4, mild respiratory distress, room air hypoxia down to 90%. He had positive serum ketones that were small, but no elevation of anion gap to suggest DKA. He had a flu swab that was negative for influenza A and B. His chest x-ray revealed interstitial prominence bilaterally concerning for an infection process. His white blood count was 9.5, but he had a large bandemia of 23%. He was admitted for sepsis and presumed community-acquired pneumonia. Also, in the first few hours, his urinalysis returned showing moderate occult blood, large leukocyte esterase, high white blood cells and few bacteria consistent with an acute urinary tract infection as well. HOSPITAL COURSE AND DISCHARGE DIAGNOSES 1. Sepsis. The patient was felt to be septic, given his fever, elevated respiratory rate and bandemia on labs. He was initially treated with IV ceftriaxone and zithromax for presumed community-acquired pneumonia. His blood culture did turn positive with the same organism as his urinary culture. Ultimately, he was discharged with oral antibiotics for treating possible community-acquired pneumonia as well as the bacteria causing bacteremia (see below). 2. Community-acquired pneumonia. The patient's chest x-ray continued to show bilateral interstitial infiltrates on the second day. His hypoxia and pulmonary status improved clinically. He was initially put on IV ceftriaxone and azithromycin, which was then transitioned to oral antibiotics at discharge. 3. Escherichia coli bacteremia. The patient had blood cultures that turned positive on 2/2 cultures, for Escherichia coli. His IV antibiotics were transitioned from ceftriaxone and azithromycin to Augmentin which his bacteria was sensitive to. 4. Escherichia coli urinary tract infection. The urinary bacteria had the same sensitivities as in the blood cultures. He was therefore placed on a course of Augmentin for a 21-day total course, planned for good prostate penetration in a male with a urinary tract infection. 5. Diabetes type 2 with other skin ulcer. He was on a diabetic diet and sliding scale Insulin coverage. The patient has a chronic right leg ulcer. He had completed a course of antibiotics for this over a month ago. He had continued management as per the [facility]. He was advised to resume outpatient visits there weekly as before. 6. History of hypertension. The patient was maintained on his blood pressure medications while here. 7. History of hyperlipidemia. The patient was maintained on his cholesterol management while here. 8. History of congestive heart failure. He had shortness of breath and borderline desaturations, and a BNP was obtained that was only 211. He had an Echo done during this admission that showed mild LVH, normal LVEF of 60% -65% with grade 1 diastolic dysfunction. The other finding was of moderate right heart enlargement with preserved function, calculated pulmonary artery systolic pressure was 47 mmHg consistent with mild pulmonary hypertension. The patient was kept on his same cardiac medications throughout the course. ALLERGIES: NONE. MEDICATIONS AT DISCHARGE 1. Aspirin 81 mg daily. 2. Vitamin D3 5000 units daily. 3. Lasix 20 mg b.i.d. 4. Glargine insulin. 5. Lisinopril 20 mg daily. 6. Zocor 20 mg every night. 7. Potassium 20 mEq daily. 8. Augmentin 875/125 mg 1 tablet b.i.d. for 14 more days, along with Florastor 250 mg b.i.d. during that time. CONDITION AT DISCHARGE: Stable. PHYSICAL EXAMINATION VITAL SIGNS: Stable. Blood pressure 158/80, heart rate 60, afebrile, room air saturation 95%. HEENT: Unremarkable. NECK: Without JVD, but is obese. CHEST: Had diminished breath sounds but no wheezes or rales. HEART: Sounds are distant. ABDOMEN: Obese. EXTREMITIES: Venous stasis changes bilaterally. The right contreras has bandaging. NEUROLOGIC: Grossly intact. PLAN: Follow up with his PCP in 5-7 days is advised. CODE STATUS: FULL CODE. Time required to complete this entire discharge, chart review, patient education, prescription orders, dictation: 60 minutes. cc: Giorgi Epps MD TD: 02/19/2018 11:42 MTDD
== END 2018-02-11 16:00 | disposition home or self-care (01) | DRG 871 ==
LOC: EDUNIT# → ED 20:56 → MS2 22:25 → ICU 02-08 12:29 → MS2 02-10 12:57
PROVIDERS: ADMIT Internal Medicine; ATTEND Internal Medicine
PROC: 02HV33Z Insertion of Infusion Device into Superior Vena Cava, Percutaneous Approach (ICD-10-PCS; principal; 2018-02-08)
DX: J18.9 Pneumonia, unspecified organism (principal); A41.51 Sepsis due to Escherichia coli [E. coli]; G93.41 Metabolic encephalopathy; I50.33 Acute on chronic diastolic (congestive) heart failure; E11.9 Type 2 diabetes mellitus without complications; R65.21 Severe sepsis with septic shock; I50.9 Heart failure, unspecified; F17.200 Nicotine dependence, unspecified, uncomplicated; Z68.41 Body mass index [BMI] 40.0-44.9, adult; N39.0 Urinary tract infection, site not specified; L97.211 Non-pressure chronic ulcer of right calf limited to breakdown of skin; J84.9 Interstitial pulmonary disease, unspecified; E11.622 Type 2 diabetes mellitus with other skin ulcer; E66.01 Morbid (severe) obesity due to excess calories; D89.9 Disorder involving the immune mechanism, unspecified; I11.0 Hypertensive heart disease with heart failure; E78.5 Hyperlipidemia, unspecified; R09.02 Hypoxemia; R31.29 Other microscopic hematuria; I27.20 Pulmonary hypertension, unspecified; I87.8 Other specified disorders of veins; F17.290 Nicotine dependence, other tobacco product, uncomplicated; Z79.4 Long term (current) use of insulin; Z79.899 Other long term (current) drug therapy; Z79.82 Long term (current) use of aspirin
CPT/HCPCS: 36415; 71045; 80053; 80170; 81001; 81003; 82009; 82330; 82803; 83036; 83605; 83690; 83735; 83880; 84100; 84484; 85025; 85610; 85730; 87040; 87086; 87150; 87181; 87275; 87276; 93005; 93306; 96361; 96365; 96367; 99284; 99285

== ENCOUNTER 2018-11-26 18:37 | Emergency (ER) | payer MEDICARE, OTHER ==
[2018-11-26 18:46] VITALS: BP 158/78
--- NOTE | 2018-11-26 19:24 | ED Physician Documentation ---
History of Present Illness - Stated complaint Stated Complaint: RIGHT FOOT WOUND - Chief complaint Chief Complaint: Ext Problem - History obtained from History obtained from: Patient - Additonal information Additional information: Patient is a 73-year-old male with history of CHF and other comorbidities presenting with skin changes to right lower extremity over the past several days. Patient reports chronic venous stasis changes, edema, and dry skin to both lower extremities. Patient also notes that his right lower extremity is worse than his left and often is erythematous, but states that his right foot had a bit of a sore that was unroofed and subsequently his right foot is now erythematous as well. Patient denies significant pain or changes in range of motion, strength, or sensation from baseline. Patient also denies fever, chills, abdominal pain, vomiting, hearing changes, stool changes. No other improving or worsening factors noted. Review of Systems Constitutional: denies: Fever, Chills GI: denies: Abdominal Pain, Nausea, Vomiting, Diarrhea : denies: Dysuria Skin: reports: Lesions, Abrasion (s) Musculoskeletal: reports: Extremity swelling PD PAST MEDICAL HISTORY - Past Medical History Cardiovascular: Congestive heart failure, Hypertension, High cholesterol, Other Respiratory: None Neuro: None Endocrine/Autoimmune: Type 2 diabetes GI: None : None HEENT: None Psych: None Musculoskeletal: Osteoarthritis, Other Derm: None - Past Surgical History Past Surgical History: Yes Ortho: Other - Present Medications Home Medications: Ambulatory Orders Medication Instructions Recorded Confirmed RX: Aspirin [Children's Aspirin] 81 mg PO DAILY 05/04/13 04/29/18 RX: Cholecalciferol (Vitamin D3) 5,000 unit PO DAILY 05/04/13 04/29/18 [Vitamin D3] RX: Furosemide [Lasix] 20 mg PO DAILY 05/04/13 04/29/18 RX: Insulin Glargine,Hum.rec.anlog 30 - 35 unit SQ DAILY 05/04/13 04/29/18 [Lantus] RX: Lisinopril 20 mg PO DAILY 05/04/13 04/29/18 RX: Potassium Chloride 20 meq PO DAILY #30 tab.er.prt 05/04/13 04/29/18 RX: Simvastatin [Zocor] 20 mg PO QPM 05/04/13 04/29/18 Cephalexin [Keflex] 500 mg PO Q6H #28 capsule 11/26/18 Sulfamethox/Trimeth 800/160 1 each PO BID #14 tablet 11/26/18 [Bactrim Ds 800/160] - Allergies Allergies/Adverse Reactions: Allergies Allergy/AdvReac Type Severity Reaction Status Date / Time No Known Drug Allergies Allergy Verified 11/26/18 18:46 - Social History Does the pt smoke?: Yes Smoking Status: Current every day smoker Does the pt drink ETOH?: No Does the pt have substance abuse?: No - Immunizations Immunizations are current?: No Immunizations: TDAP >10years/unknown - POLST Patient has POLST: No POLST Status: Full Code PD ED PE NORMAL - Vitals Vital signs reviewed: Yes - General General: Alert and oriented X 3, No acute distress, Well developed/nourished - HEENT HEENT: Atraumatic, Moist mucous membranes - Neck Neck: Supple, no meningeal sign - Cardiac Cardiac: Strong equal pulses - Respiratory Respiratory: No respiratory distress - Derm Derm: Other (Chronic venous stasis changes to both lower extremities worse on the right leg including Areas of serous weeping, blistering, erythema extending to foot. Patient has extensive dry skin to the right lower extremity with peeling of dry skin and scabbing present.1+ pitting edema to the right leg.). No: Normal color - Extremities Extremities: No deformity, No tenderness to palpate. No: No edema - Neuro Neuro: Alert and oriented X 3, No motor deficit, No sensory deficit - Psych Psych: Normal mood, Normal affect Results - Vitals Vitals: Vital Signs - 24 hr 11/26/18 18:41 Temperature 36.3 C L Heart Rate 84 Respiratory 19 Rate Blood Pressure 158/78 H O2 Saturation 96 Oxygen O2 Source Room air PD MEDICAL DECISION MAKING - ED course Complexity details: considered differential, d/w patient ED course: Patient has chronic venous stasis changes to both lower extremities, particularly worse on the right. Patient reports that he often has weeping, blistering, erythema to the right leg which is unchanged from baseline, but now involving the foot. Patient also has extensive scabbing and dry skin to this leg. Do have concern for possible cellulitis. Do not find evidence of lymphangitis or abscess. Have low suspicion for DVT, trauma, bony abnormalities, joint infection, gout, but considered. Do not feel patient requires invasive testing or imaging at this time. Recommended initiating antibiotics for possible foot cellulitis, as well as close primary care follow- up. Patient has seen the wound clinic before and recommended he follow-up there as well.No evidence of other systemic illness, sepsis, or other complication. Patient voiced understanding and is comfortable with discharge plan. Departure - Departure Disposition: 01 Home, Self Care Clinical Impression: Cellulitis Condition: Good Instructions: ED Infec Skin Cellulitis Follow-Up: Wayne Galindo PA-C [Primary Care Provider] - Within 3 Days Prescriptions: Cephalexin [Keflex] 500 mg PO Q6H #28 capsule Sulfamethox/Trimeth 800/160 [Bactrim Ds 800/160] 1 each PO BID #14 tablet Comments: Please continue all home medications as previously recommended. Please take antibiotic as prescribed for possible skin infection of foot and leg. Recommend keeping leg clean and dry using running water and soap only. Do not submerge underwater. Additionally, recommend elevation and ice application to help reduce swelling. Please follow-up with your primary care physician in next 2 to 3 days and return to ED sooner if experience worsening symptoms or have other concerns. Discharge Date/Time: 11/26/18 19:59
== END 2018-11-26 19:59 | disposition home or self-care (01) ==
LOC: ED 18:37
DX: L03.115 Cellulitis of right lower limb (principal); I87.8 Other specified disorders of veins; I11.0 Hypertensive heart disease with heart failure; I50.9 Heart failure, unspecified; E11.628 Type 2 diabetes mellitus with other skin complications; F17.200 Nicotine dependence, unspecified, uncomplicated; Z79.4 Long term (current) use of insulin
CPT/HCPCS: 99282; 99284

== ENCOUNTER 2020-03-21 08:00 | Outpatient (CLI) | payer MEDICARE, OTHER ==
[2020-03-21 17:48] LABS: BASOPHILS # (AUTO) 0.1 10^3/uL (0.0-0.1); BASOPHILS % (AUTO) 0.7 %; EOSINOPHILS # (AUTO) 0.3 10^3/uL (0.0-0.7); EOSINOPHILS % (AUTO) 3.7 %; HGB - HEMOGLOBIN 12.1 g/dL (14.0-18.0); LYMPHOCYTES % (AUTO) 13.3 %; MEAN CORPUSCULAR HEMOGLOBIN 29.5 pg (27.0-31.0); MEAN CORPUSCULAR HGB CONC 31.3 g/dL (32.0-36.0); MEAN CORPUSCULAR VOLUME 94.1 fL (80.0-94.0); MONOCYTES # (AUTO) 0.7 10^3/uL (0.0-1.0); MONOCYTES % (AUTO) 8.8 %; NEUTROPHILS # (AUTO) 5.6 10^3/uL (1.5-6.6); NEUTROPHILS % (AUTO) 73.2 %; PLT - PLATELET COUNT 37 10^3/uL (130-450); RED CELL DISTRIBUTION WIDTH 14.3 % (12.0-15.0); WHITE BLOOD COUNT 7.6 x10^3/uL (4.8-10.8)
[2020-03-21 18:20] LABS: ALBUMIN 3.6 g/dL (3.2-5.5); ALBUMIN/GLOBULIN RATIO 0.9 (1.0-2.2); ALKALINE PHOSPHATASE 75 IU/L (42-121); ALT ALANINE AMINOTRANSFERASE 10 IU/L (10-60); AST ASPARTATE AMINOTRANSFERASE 16 IU/L (10-42); BILIRUBIN,TOTAL 0.6 mg/dL (0.2-1.0); BUN - BLOOD UREA NITROGEN 30 mg/dL (6-20); CALCIUM 9.3 mg/dL (8.5-10.3); CARBON DIOXIDE - CO2 24 mmol/L (21-32); CHLORIDE 110 mmol/L (101-111); CHOL/HDL RATIO 4.4 (<5.0); CHOLESTEROL 155 mg/dL; CREATININE 0.9 mg/dL (0.6-1.2); GLUCOSE 102 mg/dL (70-100); HDL CHOLESTEROL 35 mg/dL; LDL CHOLESTEROL,CALCULATED 106 mg/dL; SODIUM 143 mmol/L (135-145); TOTAL PROTEIN 7.5 g/dL (6.7-8.2); VLDL CHOLESTEROL 14 mg/dL
[2020-03-21 21:21] LABS: HEMOGLOBIN A1c% 6.7 % (4.27-6.07)
== END 2020-03-21 23:59 | disposition home or self-care (01) ==
LOC: LAB.WCP 08:00
PROVIDERS: ATTEND Family Medicine
DX: E11.9 Type 2 diabetes mellitus without complications (principal); Z12.5 Encounter for screening for malignant neoplasm of prostate
CPT/HCPCS: 36415; 80053; 80061; 83036; 85025; G0103; 82043; 82570; 83721; 84153

== ENCOUNTER 2020-03-22 08:00 | Outpatient (CLI) | payer MEDICARE, OTHER ==
[2020-03-22 11:59] LABS: CREATININE,URINE 142.6 mg/dL; MICROALBUM/CREATININE RATIO,UR 30.9 ug/mg (<30.0); MICROALBUMIN,URINE 4.4 mg/dL (0-300.0)
== END 2020-03-22 23:59 | disposition home or self-care (01) ==
LOC: LAB.R 08:00
PROVIDERS: ATTEND Family Medicine
DX: E11.9 Type 2 diabetes mellitus without complications (principal)
CPT/HCPCS: 82043; 82570

== ENCOUNTER 2020-04-06 12:54 | Outpatient (CLI) | payer MEDICARE, OTHER ==
--- NOTE | 2020-04-06 16:05 | Ultrasound Report ---
PROCEDURE: Duplex Lwr Ext Arterial Bilat INDICATIONS: PERIPHERAL ARTERY DISEASE TECHNIQUE: Color and pulse Doppler interrogation was performed of both lower extremity arterial systems, with im age documentation. COMPARISON: Venous Doppler ultrasound, right lower extremity, 05/04/2013. Arterial Doppler ultrasoun d of lower extremities bilaterally, 01/25/2013. Venous Doppler ultrasound lower extremities bilaterall y 01/25/2013. FINDINGS: Right lower extremity: Common femoral artery: 107 cm/sec, with monophasic flow. Deep femoral artery: 52 cm/sec, with triphasic flow. Proximal superficial femoral artery: 112 cm/sec, with monophasic flow. Mid superficial femoral artery: 92 cm/sec, with monophasic flow. Distal superficial femoral artery: 119 cm/sec, with monophasic flow. Popliteal artery: 45 cm/sec, with monophasic flow. Posterior tibial artery: 79 cm/sec, with monophasic flow. Anterior tibial artery/dorsalis pedis: 84 cm/sec, with monophasic flow. Johnson-scale imaging description: Patent without significant stenosis. Left lower extremity: Common femoral artery: 54 cm/sec, with triphasic flow. Deep femoral artery: 48 cm/sec, with triphasic flow. Proximal superficial femoral artery: 91 cm/sec, with triphasic flow. Mid superficial femoral artery: 19 cm/sec, with triphasic flow. Distal superficial femoral artery: 86 cm/sec, with triphasic flow. Popliteal artery: 46 cm/sec, with triphasic flow. Posterior tibial artery: 69 cm/sec, with triphasic flow. Anterior tibial artery/dorsalis pedis: 60 cm/sec, with triphasic flow. Johnson-scale imaging description: Patent without significant stenosis There are non--occlusive filling defects involving the right common femoral vein and superficial femo ral vein and occlusive DVT involving popliteal vein. DVT was present on 04/09/2013 previously, which d id not involve common femoral vein. IMPRESSION: 1. Extensive DVT in the right lower extremity. Result was discussed with Dr. Webb at the time of t he exam. 2. Monophasic waveform in the right common femoral artery, superficial femoral artery and popliteal a rtery. There is diffuse ossified plaques in the right lower extremity arteries but no high-grade sten osis. Suspect in-flow disease. If clinically indicated, CT or MR angiogram is suggested. 3. Normal left lower imaging arterial Doppler ultrasound exam. Reviewed by: Monster Cosme MD on 04/06/2020 4:04 PM PST Approved by: Monster Cosme MD on 04/06/2020 4:04 PM PST Station ID: [id number]
== END 2020-04-06 12:55 | disposition home or self-care (01) ==
LOC: DI 12:54
PROVIDERS: ATTEND Family Medicine
DX: I82.401 Acute embolism and thrombosis of unspecified deep veins of right lower extremity (principal); I70.201 Unspecified atherosclerosis of native arteries of extremities, right leg; D69.6 Thrombocytopenia, unspecified
CPT/HCPCS: 93925

== ENCOUNTER 2020-04-07 07:00 | Outpatient (CLI) | payer MEDICARE, OTHER ==
[2020-04-07 11:05] LABS: ABNORMAL LYMPHS % (MANUAL) 0 %; BAND NEUTROPHILS % (MANUAL) 0 %
[2020-04-07 18:21] LABS: BASOPHILS % (AUTO) 0.5 %; EOSINOPHILS % (AUTO) 3.5 %; HGB - HEMOGLOBIN 12.1 g/dL (14.0-18.0); MEAN CORPUSCULAR HEMOGLOBIN 29.4 pg (27.0-31.0); MEAN CORPUSCULAR HGB CONC 30.3 g/dL (32.0-36.0); MEAN CORPUSCULAR VOLUME 97.1 fL (80.0-94.0); MEAN PLATELET VOLUME 11.9 fL (7.4-11.4); MONOCYTES % (AUTO) 7.8 %; NEUTROPHILS % (AUTO) 73.9 %; RED BLOOD COUNT 4.11 10^6/uL (4.70-6.10); RED CELL DISTRIBUTION WIDTH 14.6 % (12.0-15.0)
[2020-04-07 18:41] LABS: PLT - PLATELET COUNT 188 10^3/uL (130-450)
[2020-04-07 20:15] LABS: BASOPHILS # (MANUAL) 0.1 10^3/uL (0-0.1); BASOPHILS % (MANUAL) 1 %; EOSINOPHILS # (MANUAL) 0.1 10^3/uL (0-0.7); LYMPHOCYTES # (MANUAL) 1.1 10^3/uL (1.5-3.5); LYMPHOCYTES % (MANUAL) 18 %; MONOCYTES # (MANUAL) 0.4 10^3/uL (0.0-1.0)
[2020-04-07 20:16] LABS: PLATELET MORPHOLOGY NORMAL APP (NORMAL)
[2020-04-07 20:17] LABS: DIFFERENTIAL COMMENT MANUAL DIFFERENTIAL; PLATELET ESTIMATE, MANUAL NORMAL (130-450,000) (NORMAL); RBC MORPHOLOGY (MULTIPLE) NORMAL APPEARANCE (NORMAL)
[2020-04-07 20:21] LABS: WHITE BLOOD COUNT 6.3 x10^3/uL (4.8-10.8)
== END 2020-04-07 23:59 | disposition home or self-care (01) ==
LOC: LAB.WCP 07:00
PROVIDERS: ATTEND Family Medicine
DX: D69.6 Thrombocytopenia, unspecified (principal)
CPT/HCPCS: 36415; 85025

== ENCOUNTER 2020-05-06 14:22 | Outpatient (CLI) | payer MEDICARE, OTHER ==
--- NOTE | 2020-05-06 15:45 | Ultrasound Report ---
PROCEDURE: Aorta Screening INDICATIONS: NICOTINE ADDICTION TECHNIQUE: Real time scanning was performed of the aorta and iliac arteries, with image documentatio n. COMPARISON: None. FINDINGS: Aorta: Proximal aortic diameter measures 3 x 2.7 cm. Mid-aorta measures 3.2 x 3.1 cm. The distal aorta demonstrates a fusiform aneurysm measuring 4.7 x 5.2 cm, with a cranial caudal exten t of cm. Iliac arteries: Right common iliac artery measures 1.8 x 1.3 cm. Left common iliac artery measures 1.7 x 1.5 cm. This study is limited by body habitus and overlying bowel gas. IMPRESSION: Aneurysmal aorta, with a distal abdominal aortic aneurysm measuring 4.7 x 5.2 cm in greatest axial di mensions. Reviewed by: Rupesh Reno MD on 05/06/2020 2:43 PM AKST Approved by: Rupesh Reno MD on 05/06/2020 2:43 PM [facility] Station ID: [id number]
== END 2020-05-06 14:23 | disposition home or self-care (01) ==
LOC: DI 14:22
PROVIDERS: ATTEND Family Medicine
DX: Z12.2 Encounter for screening for malignant neoplasm of respiratory organs (principal); I71.4 Abdominal aortic aneurysm, without rupture; F17.201 Nicotine dependence, unspecified, in remission

== ENCOUNTER 2020-08-20 11:37 | Emergency (ER) | payer MEDICARE, OTHER ==
[2020-08-20] MEDS ORDERED: HYDROcod/ACETAM 5/325 MG TABLET PO STA (12:11)
--- NOTE | 2020-08-20 12:12 | ED Physician Documentation ---
PD HPI MALE - Stated complaint Stated Complaint: MALE - Chief complaint Chief Complaint: General - History obtained from History obtained from: Patient - History of Present Illness Timing - onset: How many days ago (3) Timing - duration: Days (3) Timing - details: Gradual onset, Still present, Waxing and waning Associated symptoms: Testiclar pain. No: Hematuria, Discharge Similar symptoms before: Has not had sx before Recently seen: Not recently seen - Additional information Additional information: 75-year-old male with 3 days of progressive right testicular pain seems a little better yesterday much worse this morning and persistent. He has swelling and pain. He is not able to see the testes or the penis. Review of Systems Constitutional: denies: Fever Eyes: denies: Decreased vision Ears: denies: Ear pain Nose: denies: Congestion Respiratory: denies: Cough GI: denies: Vomiting PD PAST MEDICAL HISTORY - Past Medical History Cardiovascular: Congestive heart failure, Hypertension, High cholesterol, Other Respiratory: None Neuro: None Endocrine/Autoimmune: Type 2 diabetes GI: None : None HEENT: None Psych: None Musculoskeletal: Osteoarthritis, Other Derm: None - Past Surgical History Past Surgical History: Yes Ortho: Other - Present Medications Home Medications: Ambulatory Orders Medication Instructions Recorded Confirmed Cholecalciferol (Vitamin D3) 5,000 unit PO DAILY 05/04/13 08/20/20 [Vitamin D3] Furosemide [Lasix] 80 mg PO DAILY 05/04/13 08/20/20 Insulin Glargine,Hum.rec.anlog 30 - 35 unit SQ DAILY 05/04/13 08/20/20 [Lantus] Lisinopril 20 mg PO DAILY 05/04/13 08/20/20 Potassium Chloride 20 meq PO DAILY #30 tab.er.prt 05/04/13 08/20/20 Simvastatin [Zocor] 20 mg PO QPM 05/04/13 08/20/20 Rivaroxaban [Xarelto] 1 tab PO DAILY 08/20/20 08/20/20 Sulfamethox/Trimeth 800/160 1 each PO BID #14 tablet 08/20/20 [Bactrim Ds] - Allergies Allergies/Adverse Reactions: Allergies Allergy/AdvReac Type Severity Reaction Status Date / Time No Known Drug Allergies Allergy Verified 08/20/20 11:41 - Social History Does the pt smoke?: Yes Smoking Status: Former smoker Does the pt drink ETOH?: No Does the pt have substance abuse?: No - Immunizations Immunizations are current?: No Immunizations: TDAP >10years/unknown - POLST Patient has POLST: No POLST Status: Full Code PD ED PE NORMAL - Vitals Vital signs reviewed: Yes (hypertensive diastolic ) - General General: No acute distress, Well developed/nourished - HEENT HEENT: Atraumatic, PERRL, EOMI - Respiratory Respiratory: No respiratory distress - Male Male : Other (The right testis is tender swollen and without fluctuance. The left is not swollen or tender. There are no skin changes to the scrotum. The penis is micro. 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, No motor deficit, No sensory deficit, Normal speech Eye Opening: Spontaneous Motor: Obeys Commands Verbal: Oriented GCS Score: 15 - Psych Psych: Normal mood, Normal affect Results - Vitals Vitals: Vital Signs - 24 hr 08/20/20 08/20/20 08/20/20 11:43 12:00 12:08 Temperature 36.8 C Heart Rate 98 115 H 126 H Respiratory 20 16 19 Rate Blood Pressure 111/95 H 104/88 H 104/88 H O2 Saturation 95 96 97 08/20/20 08/20/20 08/20/20 12:30 13:01 13:44 Temperature Heart Rate 103 H 98 94 Respiratory 16 16 24 Rate Blood Pressure 131/91 H 136/92 H O2 Saturation 95 98 94 08/20/20 14:40 Temperature Heart Rate 77 Respiratory 17 Rate Blood Pressure 130/84 H O2 Saturation Oxygen O2 Source Room air - Rads (name of study) ultrasound scrotal Radiology: Prelim report reviewed (M pression markedly enlarged heterogeneous epididymis with increased vascularity suggestive of epididymitis. More focal thickening of the epididymal tail measuring 2.3 x 1.9 x 2.0 cm may represent sequela of epididymitis. Masses not completely excluded. Recommend ultrasound follow-up after resolu), Final report received (Moderate sized testicular fluid collection with internal septations concerning for a pyocele.), EMP read indepedently, See rad report PD MEDICAL DECISION MAKING - ED course Complexity details: reviewed results, re-evaluated patient, considered differential, d/w patient ED course: 75-year-old male with acute epididymitis Has marked pain improvement with use of [place]. He is administered Levaquin and he will need a follow-up with urology. I discussed the findings with the patient and the expected outcome and I have asked the patient to return to the emergency department if he is not having improvement or worsens over the next 2 to 3 days. The patient's microbiology at our hospital is reviewed he has had E. coli sepsis previously and that organism was not sensitive to Levaquin. We will place him on sulfamethoxazole trimethoprim. Departure - Departure Disposition: 01 Home, Self Care Clinical Impression: Epididymitis Condition: Stable Instructions: ED Epididymitis, ED Orchitis Follow-Up: Ny Webb DO [Primary Care Provider] - Jacquelin Nguyen MD [Physician No Access] - Prescriptions: Sulfamethox/Trimeth 800/160 [Bactrim Ds] 1 each PO BID #14 tablet
--- NOTE | 2020-08-20 14:15 | Ultrasound Report ---
PROCEDURE: Testicle w/Doppler INDICATIONS: R testicle pain swelling TECHNIQUE: Real-time scanning was performed of the scrotum and testicles, with image documentation. Color and p ulse Doppler interrogation was performed of both testicles. COMPARISON: None. FINDINGS: Right: Testicle is normal in size at 3.2 x 2.8 x 2.5 cm, and homogenous in echotexture. The epididym is is markedly enlarged measuring 4.9 x 0.8 x 2.1 cm and heterogeneous in echotexture with diffuse in creased vascularity. Bony epididymal tail there is a ill-defined focal region measuring 2.3 x 1.9 x 2 .0 cm with increased vascularity and heterogeneity. There is a moderate-sized peritesticular fluid co llection with multiple septations. Overlying scrotal skin is thickened. Left: Testicle is normal in size at 3.8 x 1.6 x 2.3 cm, and homogeneous in echotexture. Epididymis was not well evaluated. No hydrocele or varicoceles. Overlying scrotal skin is normal in thickness. Doppler: Color and pulse Doppler demonstrate normal and symmetric arterial flow in both testicles. IMPRESSION: Markedly enlarged heterogeneous epididymis with increased vascularity suggestive of epididymitis. Mor e focal thickening of the epididymal tail measuring 2.3 x 1.9 x 2.0 cm may represent sequela of epidi dymitis. Mass is not completely excluded. Recommend ultrasound follow-up after resolution of acute sy mptoms. Moderate-sized peritesticular fluid collection with internal septations concerning for a pyocele. Reviewed by: Blaze Kirkpatrick DO on 08/20/2020 1:13 PM JONATHON Approved by: Blaze Kirkpatrick DO on 08/20/2020 1:13 PM JONATHON Station ID: [id number]
[2020-08-20] MEDS ORDERED: levoFLOXacin 250 MG TABLET PO STA (14:30)
[2020-08-20 15:15] VITALS: BP 104/90
== END 2020-08-20 15:21 | disposition home or self-care (01) ==
LOC: ED 11:37
DX: N45.1 Epididymitis (principal); I10 Essential (primary) hypertension; E11.9 Type 2 diabetes mellitus without complications; Z79.4 Long term (current) use of insulin; Z87.891 Personal history of nicotine dependence
CPT/HCPCS: 76870; 93975; 99284; A9270

== ENCOUNTER 2020-08-22 13:13 | Emergency (ER) | payer MEDICARE, OTHER ==
--- OUTSIDE RECORDS SUMMARY | 2020-08-22 13:17 | EXTERNAL MEDICAL SUMMARY RPT | Continuity of Care Document ---
:1945 Demographics Phone Unavailable Preferred Language Unknown Marital Status Unknown Hinduism Affiliation Unknown Race Unknown Ethnic Group Unknown Author Organization [facility] Address [address] [id number] Phone Social History date description facility [phone]
--- OUTSIDE RECORDS SUMMARY | 2020-08-22 13:27 | EXTERNAL MEDICAL SUMMARY RPT | Continuity of Care Document ---
:1945 Demographics Phone Unavailable Preferred Language Unknown Marital Status Unknown Mosque Affiliation Unknown Race Unknown Ethnic Group Unknown Author Organization [facility] Address [address] [id number] Phone Social History date description facility [phone]
--- NOTE | 2020-08-22 14:12 | ED Physician Documentation ---
History of Present Illness - Stated complaint Stated Complaint: MALE - Chief complaint Chief Complaint: Abd Pain - History obtained from History obtained from: Patient - History of Present Illness Timing: How many days ago (4-5) Pain level max: 7 Pain level now: 7 - Additonal information Additional information: 75-year-old male presents to the emergency department with several days of scrotal swelling, he states that has been worsening despite being placed on Bactrim for epididymitis. He states that the swelling has come across his pubis area now as well. Has continued pain. No fevers. No chills. History of E. coli sepsis in the past. Review of Systems Ten Systems: 10 systems reviewed and negative Constitutional: denies: Fever, Chills Nose: denies: Rhinorrhea / runny nose, Congestion GI: denies: Vomiting Skin: denies: Rash Musculoskeletal: denies: Neck pain, Back pain Neurologic: denies: Headache PD PAST MEDICAL HISTORY - Past Medical History Cardiovascular: Congestive heart failure, Hypertension, High cholesterol, Other (AAA) Respiratory: None Neuro: None Endocrine/Autoimmune: Type 2 diabetes GI: None : None HEENT: None Psych: None Musculoskeletal: Osteoarthritis, Other Derm: None - Past Surgical History Past Surgical History: Yes Ortho: Other - Present Medications Home Medications: Ambulatory Orders Medication Instructions Recorded Confirmed Cholecalciferol (Vitamin D3) 5,000 unit PO DAILY 05/04/13 08/22/20 [Vitamin D3] Furosemide [Lasix] 80 mg PO DAILY 05/04/13 08/22/20 Insulin Glargine,Hum.rec.anlog 30 - 35 unit SQ DAILY 05/04/13 08/22/20 [Lantus] Lisinopril 20 mg PO DAILY 05/04/13 08/22/20 Potassium Chloride 20 meq PO DAILY #30 tab.er.prt 05/04/13 08/22/20 Simvastatin [Zocor] 20 mg PO QPM 05/04/13 08/22/20 HYDROcod/ACETAM 5/325 [[place] 5/325] 1 - 2 tablet PO Q6H PRN #14 tablet 08/20/20 08/22/20 Rivaroxaban [Xarelto] 1 tab PO DAILY 08/20/20 08/22/20 Sulfamethox/Trimeth 800/160 1 each PO BID #14 tablet 08/20/20 08/22/20 [Bactrim Ds] - Allergies Allergies/Adverse Reactions: Allergies Allergy/AdvReac Type Severity Reaction Status Date / Time No Known Drug Allergies Allergy Verified 08/22/20 13:21 - Social History Does the pt smoke?: Yes Smoking Status: Former smoker Does the pt drink ETOH?: No Does the pt have substance abuse?: No - Immunizations Immunizations are current?: No Immunizations: TDAP >10years/unknown - POLST Patient has POLST: No POLST Status: Full Code PD ED PE NORMAL - Vitals Vital signs reviewed: Yes - General General: Alert and oriented X 3, No acute distress, Other (morbidly obese male) - HEENT HEENT: Moist mucous membranes - Neck Neck: Supple, no meningeal sign - Cardiac Cardiac: RRR - Respiratory Respiratory: No respiratory distress, Clear bilaterally - Abdomen Abdomen: Soft, Non tender, Non distended - Back Back: No CVA TTP, No spinal TTP - Derm Derm: Warm and dry - Extremities Extremities: Other (permanent discoloration of the B LE. ) - Neuro Neuro: Alert and oriented X 3 - Psych Psych: Normal mood, Normal affect Results - Vitals Vitals: Vital Signs - 24 hr 08/22/20 08/22/20 08/22/20 13:22 14:24 15:30 Temperature 36.5 C 37.1 C Heart Rate 101 H 105 H 100 Respiratory 20 20 20 Rate Blood Pressure 139/70 H 111/7 L 118/82 H O2 Saturation 97 94 96 08/22/20 18:10 Temperature Heart Rate 104 H Respiratory 20 Rate Blood Pressure 115/75 O2 Saturation 93 Oxygen O2 Source Room air - Labs Labs: Laboratory Tests 08/22/20 08/22/20 08/22/20 14:16 14:16 15:40 WBC 9.3 RBC 4.09 L Hgb 12.0 L Hct 38.3 L MCV 93.6 MCH 29.3 MCHC 31.3 L RDW 14.7 Plt Count 203 MPV 9.2 Neut # (Auto) 7.7 H Lymph # (Auto) 0.6 L [place] # (Auto) 0.7 Eos # (Auto) 0.2 Baso # (Auto) 0.0 Absolute Nucleated RBC 0.00 Nucleated RBC % 0.0 Sodium 140 Potassium 4.0 Chloride 106 Carbon Dioxide 24 Anion Gap 10.0 BUN 15 Creatinine 1.1 Estimated GFR (MDRD) 65 L Glucose 133 H Lactic Acid Calcium 9.3 Total Bilirubin 0.7 AST 14 ALT 12 Alkaline Phosphatase 83 Total Protein 7.9 Albumin 3.5 Globulin 4.4 H Albumin/Globulin Ratio 0.8 L Urine Color Urine Clarity Urine pH Ur Specific [place] Urine Protein Urine Glucose (UA) Urine Ketones Urine Occult Blood Urine Nitrite Urine Bilirubin Urine Urobilinogen Ur Leukocyte Esterase Urine RBC Urine WBC Urine WBC Clumps Ur Squamous Epith Cells Urine Bacteria Ur Microscopic Review Urine Culture Comments Nasal Adenovirus (PCR) NOT DETECTED Nasal B. parapertussis DNA (PCR) NOT DETECTED Nasal Coronavir 229E PCR NOT DETECTED Nasal Coronavir HKU1 PCR NOT DETECTED Nasal Coronavir NL63 PCR NOT DETECTED Nasal Coronavir OC43 PCR NOT DETECTED Nasal Enterovir/Rhinovir PCR NOT DETECTED Nasal Influenza B PCR NOT DETECTED Nasal Influenza A PCR NOT DETECTED Nasal Parainfluen 1 PCR NOT DETECTED Nasal Parainfluen 2 PCR NOT DETECTED Nasal Parainfluen 3 PCR NOT DETECTED Nasal Parainfluen 4 PCR NOT DETECTED Nasal RSV (PCR) NOT DETECTED Nasal B.pertussis DNA PCR NOT DETECTED Nasal C.pneumoniae (PCR) NOT DETECTED Nick Human Metapneumo PCR NOT DETECTED Nasal M.pneumoniae (PCR) NOT DETECTED Nasal SARS-CoV-2 (PCR) NOT DETECTED 08/22/20 08/22/20 16:26 17:09 WBC RBC Hgb Hct MCV MCH MCHC RDW Plt Count MPV Neut # (Auto) Lymph # (Auto) [place] # (Auto) Eos # (Auto) Baso # (Auto) Absolute Nucleated RBC Nucleated RBC % Sodium Potassium Chloride Carbon Dioxide Anion Gap BUN Creatinine Estimated GFR (MDRD) Glucose Lactic Acid 1.0 Calcium Total Bilirubin AST ALT Alkaline Phosphatase Total Protein Albumin Globulin Albumin/Globulin Ratio Urine Color YELLOW Urine Clarity CLOUDY Urine pH 7.0 Ur Specific Kendrick 1.020 Urine Protein 30 H Urine Glucose (UA) NEGATIVE Urine Ketones 15 H Urine Occult Blood MODERATE H Urine Nitrite NEGATIVE Urine Bilirubin NEGATIVE Urine Urobilinogen 0.2 (NORMAL) Ur Leukocyte Esterase MODERATE H Urine RBC TNTC H Urine WBC >25 H Urine WBC Clumps PRESENT Ur Squamous Epith Cells RARE Squamous Urine Bacteria Few Ur Microscopic Review INDICATED Urine Culture Comments INDICATED Nasal Adenovirus (PCR) Nasal B. parapertussis DNA (PCR) Nasal Coronavir 229E PCR Nasal Coronavir HKU1 PCR Nasal Coronavir NL63 PCR Nasal Coronavir OC43 PCR Nasal Enterovir/Rhinovir PCR Nasal Influenza B PCR Nasal Influenza A PCR Nasal Parainfluen 1 PCR Nasal Parainfluen 2 PCR Nasal Parainfluen 3 PCR Nasal Parainfluen 4 PCR Nasal RSV (PCR) Nasal B.pertussis DNA PCR Nasal C.pneumoniae (PCR) Nick Human Metapneumo PCR Nasal M.pneumoniae (PCR) Nasal SARS-CoV-2 (PCR) - Rads (name of study) CT abd/pelvis Radiology: Prelim report reviewed, EMP read contemporaneously, See rad report PD MEDICAL DECISION MAKING - ED course Complexity details: reviewed results, re-evaluated patient, considered differential, d/w patient, d/w home performance consultant ED course: 75-year-old male presents to the emergency department with worsening symptoms since being seen here 2 days ago and started on Bactrim for epididymitis. I did review his ultrasound which showed a pyocele at that time. He now has cellulitis extending up the scrotum into the pubis area. No crepitus. No evidence of Eleni's gangrene or necrotizing fasciitis. CT scan was performed and does reconfirm the sialocele. In addition he has an expanding aortic aneurysm, this area was 5.2 x 4.7 cm in May of this year, now 6.2 cm x 5.7 cm. He is asymptomatic with this however, will likely need a vascular surgery consult as well. We do not have urology or vascular surgery here, therefore he will need transfer. Started on vancomycin, Zosyn and fluids. [facility] in [facility] do not have beds. I contacted [facility] in [place], spoke with Dr. Kee, urology at 1630 who recommends transfer and admit to the hospitalist. Page was placed to the hospitalist at 1630. Discussed with Dr. Marquez, hospitalist at [facility] in [place] who graciously accepts in transfer at 1830. COBRA forms completed. Patient gave permission to speak to his daughter and her questions were answered. Patient transferred This document was made in part using voice recognition software. While efforts are made to proofread this document, sound alike and grammatical errors may occur. CT abd/pelvis 08/22/20 FINDINGS: Image quality: Excellent. Peritoneum and bowel: Contrast enhanced bowel loops demonstrate normal wall thickness and caliber. No free fluid or air. Genitourinary: Bladder wall thickness is normal. Nodes and vessels: No iliac, pelvic, or inguinal adenopathy. Iliac vessels demonstrate normal size and enhancement. The distal abdominal aorta in the origin area of the inferior mesenteric artery is abnormal, with an ovoid aneurysm currently measuring up to 6.2 cm AP and 5.7 cm transverse. This area was described as measuring 5.2 x 4.7 cm, and thus there is significant concern for expanding aneurysm as cause of this appearance. Bones: No suspicious bony lesions. Miscellaneous: No inguinal hernias. Note is made of prominent edema involving the inferior scrotal wall, and also probable mild hydroceles along the borders of the testicles bilaterally, right greater than left. No gas in the soft tissues is seen. IMPRESSION: 1. Prominent edema involving the inferior scrotum, with what appears to be bilateral hydroceles, right greater than left, small in size adjacent to each testicle. Fine detail of the anatomy in this area is not possible by CT scanning. Gas in the soft tissues migrating peripherally from this area is not seen (evidence of Eleni's gangrene). Necrotizing fasciitis, however, cannot be entirely excluded by absence of gas in the soft tissues. 2. There is an unexpected finding of what appears to be an expanding distal abdominal aortic aneurysm. As discussed above the area was assessed by aortic ultrasound in early May of this year and the size of this aneurysm appears to appreciably increased by CT scanning currently. By current size alone surgical consultation would be recommended for assessing frequency of follow-up if ultrasound follow-up is chosen. Alternatively, preparation for elective aneurysm surgery may be warranted. There is no suspicion for aortic dissection or aneurysm leak at this time. Scrotal US 08/20/20: FINDINGS: Right: Testicle is normal in size at 3.2 x 2.8 x 2.5 cm, and homogenous in echotexture. The epididymis is markedly enlarged measuring 4.9 x 0.8 x 2.1 cm and heterogeneous in echotexture with diffuse increased vascularity. Bony epididymal tail there is a ill-defined focal region measuring 2.3 x 1.9 x 2.0 cm with increased vascularity and heterogeneity. There is a moderate-sized peritesticular fluid collection with multiple septations. Overlying scrotal skin is thickened. Left: Testicle is normal in size at 3.8 x 1.6 x 2.3 cm, and homogeneous in echotexture. Epididymis was not well evaluated. No hydrocele or varicoceles. Overlying scrotal skin is normal in thickness. Doppler: Color and pulse Doppler demonstrate normal and symmetric arterial flow in both testicles. IMPRESSION: Markedly enlarged heterogeneous epididymis with increased vascularity suggestive of epididymitis. More focal thickening of the epididymal tail measuring 2.3 x 1.9 x 2.0 cm may represent sequela of epididymitis. Mass is not completely excluded. Recommend ultrasound follow-up after resolution of acute symptoms. Moderate-sized peritesticular fluid collection with internal septations concerning for a pyocele. Aortic US 05/06/20: FINDINGS: Aorta: Proximal aortic diameter measures 3 x 2.7 cm. Mid-aorta measures 3.2 x 3.1 cm. The distal aorta demonstrates a fusiform aneurysm measuring 4.7 x 5.2 cm, with a cranial caudal extent of cm. Iliac arteries: Right common iliac artery measures 1.8 x 1.3 cm. Left common iliac artery measures 1.7 x 1.5 cm. This study is limited by body habitus and overlying bowel gas. IMPRESSION: Aneurysmal aorta, with a distal abdominal aortic aneurysm measuring 4.7 x 5.2 cm in greatest axial dimensions. Departure - Departure Disposition: 02 Transfer Acute Care Hosp Clinical Impression: Pyocele, AAA (abdominal aortic aneurysm) without rupture Cellulitis Qualifiers: Site of cellulitis: trunk Site of cellulitis of trunk: perineum Qualified Code(s): L03.315 - Cellulitis of perineum Condition: Stable
[2020-08-22 14:21] LABS: BASOPHILS % (AUTO) 0.3 %; EOSINOPHILS # (AUTO) 0.2 10^3/uL (0.0-0.7); EOSINOPHILS % (AUTO) 1.7 %; HCT - HEMATOCRIT 38.3 % (42.0-52.0); LYMPHOCYTES # (AUTO) 0.6 10^3/uL (1.5-3.5); LYMPHOCYTES % (AUTO) 6.9 %; MEAN CORPUSCULAR HEMOGLOBIN 29.3 pg (27.0-31.0); MEAN CORPUSCULAR HGB CONC 31.3 g/dL (32.0-36.0); MEAN CORPUSCULAR VOLUME 93.6 fL (80.0-94.0); MEAN PLATELET VOLUME 9.2 fL (7.4-11.4); MONOCYTES # (AUTO) 0.7 10^3/uL (0.0-1.0); MONOCYTES % (AUTO) 7.8 %; NEUTROPHILS # (AUTO) 7.7 10^3/uL (1.5-6.6); PLT - PLATELET COUNT 203 10^3/uL (130-450); RED BLOOD COUNT 4.09 10^6/uL (4.70-6.10); RED CELL DISTRIBUTION WIDTH 14.7 % (12.0-15.0); WHITE BLOOD COUNT 9.3 x10^3/uL (4.8-10.8)
[2020-08-22] MEDS ORDERED: IOPAMIDOL-300 100 ML VIAL ONE (14:35)
[2020-08-22 14:43] LABS: ALBUMIN 3.5 g/dL (3.2-5.5); ALBUMIN/GLOBULIN RATIO 0.8 (1.0-2.2); BILIRUBIN,TOTAL 0.7 mg/dL (0.2-1.0); CALCIUM 9.3 mg/dL (8.5-10.3); CREATININE 1.1 mg/dL (0.6-1.2); TOTAL PROTEIN 7.9 g/dL (6.7-8.2)
[2020-08-22] MEDS ORDERED: IOPAMIDOL-300 100 ML VIAL IVP ONE (15:15)
[2020-08-22] MEDS ORDERED: VANCOMYCIN INJ 3 GM in SODIUM CHLORIDE 0.9% 500 ML IV ONE (15:16)
[2020-08-22] MEDS ORDERED: PIPERACILLIN/TAZOBACTAM 3.375 GM in SODIUM CHLORIDE 0.9% MINIBAG 100 ML IV STA (15:16)
[2020-08-22] MEDS ORDERED: SODIUM CHLORIDE 0.9% 1,000 ML IV STA (15:17)
--- NOTE | 2020-08-22 15:56 | CT Report ---
PROCEDURE: PELVIS W INDICATIONS: scrotal swelling, purulent drainage, firm scrotum CONTRAST: IV CONTRAST: Isovue 300 ml: 100 PO CONTRAST: *NO PO CONTRAST TECHNIQUE: After the administration of nonionic contrast, 5 mm thick sections acquired from the iliac crests to the symphysis. 5 mm thick coronal and sagittal reformats were acquired. For radiation dose reductio n, the following was used: automated exposure control, adjustment of mA and/or kV according to patie nt size. COMPARISON: Ultrasound of aorta 05/06/2020 reviewed. FINDINGS: Image quality: Excellent. Peritoneum and bowel: Contrast enhanced bowel loops demonstrate normal wall thickness and caliber. No free fluid or air. Genitourinary: Bladder wall thickness is normal. Nodes and vessels: No iliac, pelvic, or inguinal adenopathy. Iliac vessels demonstrate normal size and enhancement. The distal abdominal aorta in the origin area of the inferior mesenteric artery is abnormal, with an ovoid aneurysm currently measuring up to 6.2 cm AP and 5.7 cm transverse. This area was described as measuring 5.2 x 4.7 cm, and thus there is significant concern for expanding aneurys m as cause of this appearance. Bones: No suspicious bony lesions. Miscellaneous: No inguinal hernias. Note is made of prominent edema involving the inferior scrotal wall, and also probable mild hydroceles along the borders of the testicles bilaterally, right greater than left. No gas in the soft tissues is seen. IMPRESSION: 1. Prominent edema involving the inferior scrotum, with what appears to be bilateral hydroceles, righ t greater than left, small in size adjacent to each testicle. Fine detail of the anatomy in this area is not possible by CT scanning. Gas in the soft tissues migrating peripherally from this area is not seen (evidence of Eleni's gangrene). Necrotizing fasciitis, however, cannot be entirely excluded by absence of gas in the soft tissues. 2. There is an unexpected finding of what appears to be an expanding distal abdominal aortic aneurysm . As discussed above the area was assessed by aortic ultrasound in early May of this year and the size of this aneurysm appears to appreciably increased by CT scanning currently. By current size nelli ne surgical consultation would be recommended for assessing frequency of follow-up if ultrasound foll ow-up is chosen. Alternatively, preparation for elective aneurysm surgery may be warranted. There is no suspicion for aortic dissection or aneurysm leak at this time. Reviewed by: Genaro Mendez MD on 08/22/2020 3:55 PM PDT Approved by: Genaro Mendez MD on 08/22/2020 3:55 PM PDT Station ID: [id number]
[2020-08-22 16:59] LABS: B. PARAPERTUSSIS- RESP PCR PAN NOT DETECTED; B. PERTUSSIS- RESP PCR PANEL NOT DETECTED; C. PNEUMONIAE- RESP PCR PANEL NOT DETECTED; CORONAVIRUS 229E-RESP PCR NOT DETECTED; CORONAVIRUS HKU1-RESP PCR NOT DETECTED; CORONAVIRUS NL63-RESP PCR NOT DETECTED; CORONAVIRUS OC43-RESP PCR NOT DETECTED; HUMAN METAPNEUMOVIRUS NOT DETECTED; INFLUENZA A- RESP PCR PANEL NOT DETECTED; INFLUENZA B - RESP PCR PANEL NOT DETECTED; M. PNEUMONIAE- RESP PCR PANEL NOT DETECTED; PARAINFLUENZA VIRUS 1 NOT DETECTED; PARAINFLUENZA VIRUS 2 NOT DETECTED; PARAINFLUENZA VIRUS 3 NOT DETECTED; PARAINFLUENZA VIRUS 4 NOT DETECTED; RHINOVIRUS/ENTEROVIRUS NOT DETECTED; RSV- RESP PCR PANEL NOT DETECTED; SARS-CoV-2 -RESP PCR PANEL NOT DETECTED
[2020-08-22 17:18] LABS: BILIRUBIN,URINE NEGATIVE (NEGATIVE); GLUCOSE, URINE (UA) NEGATIVE (NEGATIVE); KETONES,URINE (UA) 15 mg/dL (NEGATIVE); LEUKOCYTE ESTERASE, URINE MODERATE (NEGATIVE); NITRITE,URINE NEGATIVE (NEGATIVE); OCCULT BLOOD,URINE MODERATE (NEGATIVE); PROTEIN,URINE 30 mg/dL (NEGATIVE); UROBILINOGEN,URINE 0.2 (NORMAL) E.U./dL (NORMAL)
[2020-08-22 17:30] LABS: BACTERIA,URINE Few /HPF (None Seen); CLARITY,URINE CLOUDY (CLEAR); RBC,URINE TNTC /HPF (0-5); SQUAMOUS EPITHELIAL CELL,UR RARE Squamous (<= Few); WBC CLUMPS,URINE PRESENT; WBC,URINE >25 /HPF (0-3)
[2020-08-22 18:11] VITALS: BP 115/75
[2020-08-22 21:57] LABS: CHLAMYDIA TRACHOMATIS DNA NEGATIVE (NEGATIVE); NEISSERIA GONORRHOEAE DNA NEGATIVE (NEGATIVE)
== END 2020-08-22 19:40 | disposition short-term general hospital (02) ==
LOC: ED 13:13
DX: I71.4 Abdominal aortic aneurysm, without rupture (principal); L03.315 Cellulitis of perineum; N50.89 Other specified disorders of the male genital organs; Z20.822 Contact with and (suspected) exposure to COVID-19
CPT/HCPCS: 36415; 72193; 80053; 81001; 83605; 85025; 87040; 87086; 87491; 87591; 87631; 96365; 96366; 96368; 99285; J3370; Q9967; 0202U; 81003; 87661

== ENCOUNTER 2020-08-22 19:38 | Outpatient (CLI) | payer MEDICARE, OTHER | END 2020-08-22 19:39 | disposition short-term general hospital (02) | LOC: EMS 19:38 | PROVIDERS: ATTEND Emergency Medicine | DX: N34.0 Urethral abscess (principal); L03.90 Cellulitis, unspecified; I71.4 Abdominal aortic aneurysm, without rupture | CPT/HCPCS: A0425; A0426 ==

== ENCOUNTER 2020-08-29 13:40 | Outpatient (CLI) | payer MEDICARE, OTHER ==
[2020-08-29 18:05] LABS: BASOPHILS # (AUTO) 0.1 10^3/uL (0.0-0.1); BASOPHILS % (AUTO) 0.6 %; EOSINOPHILS # (AUTO) 0.3 10^3/uL (0.0-0.7); EOSINOPHILS % (AUTO) 3.6 %; HCT - HEMATOCRIT 40.1 % (42.0-52.0); HGB - HEMOGLOBIN 12.6 g/dL (14.0-18.0); INR 1.7 (0.8-1.2); LYMPHOCYTES # (AUTO) 1.2 10^3/uL (1.5-3.5); LYMPHOCYTES % (AUTO) 15.1 %; MEAN CORPUSCULAR HEMOGLOBIN 29.8 pg (27.0-31.0); MEAN CORPUSCULAR HGB CONC 31.4 g/dL (32.0-36.0); MEAN CORPUSCULAR VOLUME 94.8 fL (80.0-94.0); MEAN PLATELET VOLUME 11.7 fL (7.4-11.4); MONOCYTES # (AUTO) 0.6 10^3/uL (0.0-1.0); NEUTROPHILS # (AUTO) 5.7 10^3/uL (1.5-6.6); NEUTROPHILS % (AUTO) 72.4 %; PT - PROTHROMBIN TIME 18.8 secs (9.9-12.6); RED BLOOD COUNT 4.23 10^6/uL (4.70-6.10); RED CELL DISTRIBUTION WIDTH 15.1 % (12.0-15.0); WHITE BLOOD COUNT 7.9 x10^3/uL (4.8-10.8)
[2020-08-29 18:08] LABS: SLIDE REVIEW? Indicated
[2020-08-29 18:25] LABS: CALCIUM 9.3 mg/dL (8.5-10.3); POTASSIUM 4.5 mmol/L (3.5-5.0)
[2020-08-29 18:35] LABS: PLATELET MORPHOLOGY PLATELET CLUMPING (NORMAL); RBC MORPHOLOGY (MULTIPLE) NORMAL APPEARANCE (NORMAL)
== END 2020-08-29 23:59 | disposition home or self-care (01) ==
LOC: LAB.N 13:40
PROVIDERS: ATTEND Emergency Medicine
DX: I10 Essential (primary) hypertension (principal); I48.91 Unspecified atrial fibrillation
CPT/HCPCS: 36415; 80048; 85025; 85610

== ENCOUNTER 2021-01-20 12:04 | Emergency (ER) | payer MEDICARE, OTHER ==
--- NOTE | 2021-01-20 12:33 | ED Physician Documentation ---
PD HPI MALE - Stated complaint Stated Complaint: MALE - Chief complaint Chief Complaint: General - History obtained from History obtained from: Patient - History of Present Illness Timing - onset: How many days ago (several) Timing - duration: Days Timing - details: Gradual onset, Still present (Noticed some swelling of the right testicle in particular and today having some tenderness to it. Also noted some frequency and dysuria of urine.) Associated symptoms: Dysuria, Urinary frequency, Scrotal swelling (right side for several days). No: Genital sore / lesion Similar symptoms before: Diagnosis (Had similar several months ago (August 2020) and had hydrocele with concern for pyocele and also enlarged aorta. Transferred to [place] for urologic and vascular consults. Discharge summary pending on our request today.) Recently seen: Not recently seen Review of Systems Constitutional: denies: Fever, Chills Nose: denies: Rhinorrhea / runny nose, Congestion Throat: denies: Sore throat Respiratory: denies: Cough GI: denies: Abdominal Pain, Nausea, Vomiting : reports: Dysuria, Other (scarred foreskin with phimosis chronic.) Skin: denies: Rash PD PAST MEDICAL HISTORY - Past Medical History Cardiovascular: Congestive heart failure, Hypertension, High cholesterol, Other (AAA) Respiratory: None Neuro: None Endocrine/Autoimmune: Type 2 diabetes GI: None : None HEENT: None Psych: None Musculoskeletal: Osteoarthritis, Other Derm: None - Past Surgical History Past Surgical History: Yes Ortho: Other - Present Medications Home Medications: Ambulatory Orders Medication Instructions Recorded Confirmed Cholecalciferol (Vitamin D3) 5,000 unit PO DAILY 05/04/13 08/22/20 [Vitamin D3] Furosemide [Lasix] 80 mg PO DAILY 05/04/13 08/22/20 Insulin Glargine,Hum.rec.anlog 30 - 35 unit SQ DAILY 05/04/13 08/22/20 [Lantus] Lisinopril 20 mg PO DAILY 05/04/13 08/22/20 Potassium Chloride 20 meq PO DAILY #30 tab.er.prt 05/04/13 08/22/20 Simvastatin [Zocor] 20 mg PO QPM 05/04/13 08/22/20 HYDROcod/ACETAM 5/325 [[place] 5/325] 1 - 2 tablet PO Q6H PRN #14 tablet 08/20/20 08/22/20 Rivaroxaban [Xarelto] 1 tab PO DAILY 08/20/20 08/22/20 Sulfamethox/Trimeth 800/160 1 each PO BID #14 tablet 08/20/20 08/22/20 [Bactrim Ds] cephALEXin [Keflex] 1,000 mg PO BID 7 Days #28 cap 01/20/21 - Allergies Allergies/Adverse Reactions: Allergies Allergy/AdvReac Type Severity Reaction Status Date / Time No Known Drug Allergies Allergy Verified 01/20/21 12:24 - Social History Does the pt smoke?: Yes Smoking Status: Former smoker Does the pt drink ETOH?: No Does the pt have substance abuse?: No - Immunizations Immunizations are current?: No Immunizations: TDAP >10years/unknown - POLST Patient has POLST: No POLST Status: Full Code PD ED PE NORMAL - Vitals Vital signs reviewed: Yes - General General: Alert and oriented X 3, Well developed/nourished - Male Male : Other (There is scarring and contraction of the foreskin over the glans of the penis. He is able to urinate through that. No obvious rash. The right scrotum shows enlargement with soft swelling. Minimal tenderness. No redness of the scrotum.) - Back Back: No CVA TTP - Derm Derm: Normal color, Warm and dry - Neuro Neuro: Alert and oriented X 3, No motor deficit, No sensory deficit Results - Vitals Vitals: Vital Signs - 24 hr 01/20/21 01/20/21 01/20/21 12:20 12:49 14:28 Temperature 36.9 C Heart Rate 98 93 Respiratory 19 16 Rate Blood Pressure 136/76 H 125/83 H 116/99 H O2 Saturation 96 95 Oxygen O2 Source Room air - Labs Labs: Laboratory Tests 01/20/21 14:27 Urine Color YELLOW Urine Clarity CLOUDY Urine pH 6.0 Ur Specific [place] 1.025 Urine Protein TRACE Urine Glucose (UA) NEGATIVE Urine Ketones NEGATIVE Urine Occult Blood SMALL H Urine Nitrite POSITIVE H Urine Bilirubin NEGATIVE Urine Urobilinogen 0.2 (NORMAL) Ur Leukocyte Esterase LARGE H Urine RBC 6-10 H Urine WBC >25 H Ur Squamous Epith Cells NONE SEEN Urine Bacteria Many H Ur Microscopic Review INDICATED Urine Culture Comments INDICATED - Rads (name of study) scrotal U/S Radiology: Prelim report reviewed (hydrocele. Normal flow and epididymis is okay. ), See rad report PD MEDICAL DECISION MAKING - ED course Complexity details: considered differential (We will ultrasound the scrotum to evaluate. Can check a urine for infection. Symptoms consistent with UTI. Scrotum is not red and only some tenderness. Does not seem as likely the epididymitis or pyocele from August.), d/w patient Departure - Departure Disposition: Home, Self Care Clinical Impression: UTI (urinary tract infection) Qualifiers: Urinary tract infection type: acute cystitis Hematuria presence: without hematuria Qualified Code(s): N30.00 - Acute cystitis without hematuria Hydrocele Qualifiers: Hydrocele type: unspecified Qualified Code(s): N43.3 - Hydrocele, unspecified Condition: Stable Record reviewed to determine appropriate education?: Yes Instructions: ED UTI Cystitis Male Follow-Up: Ny Webb DO [Primary Care Provider] - Prescriptions: cephALEXin [Keflex] 1,000 mg PO BID 7 Days #28 cap Comments: Urine test does show signs of infection. We will treat this with cephalexin antibiotic as directed. This urine culture will result in a couple of days and we will call you if we need to change the antibiotic choice based on that. Your ultrasound of the scrotum showed a fluid collection on the right side called a hydrocele. This is benign and does not need particular treatment. The epididymis appeared normal. Follow-up with your primary care if not improving well over the next several days.
--- NOTE | 2021-01-20 14:40 | Ultrasound Report ---
PROCEDURE: Testicle w/Doppler INDICATIONS: right scrotal pain/swelling TECHNIQUE: Real-time scanning was performed of the scrotum and testicles, with image documentation. Color and p ulse Doppler interrogation was performed of both testicles. COMPARISON: 08/20/2020 FINDINGS: Right: Testicle is normal in size at 3.5 x 2.2 x 2.2 cm, and homogenous in echotexture. Epididymis is normal in overall size and morphology. There is a large right-sided hydrocele present. Overlying s crotal skin is normal in thickness. Left: Testicle is normal in size at 4.4 x 1.3 x 2.5 cm, and homogeneous in echotexture. Epididymis is normal in overall size and demonstrates a hyperechoic focus that measures 4 mm. No hydrocele. Ov erlying scrotal skin is normal in thickness. Doppler: Color and pulse Doppler demonstrate normal and symmetric arterial flow in both testicles. There is no left-sided varicocele. Varicocele can be a cyst on the right, secondary to the hydronephr osis and body habitus. IMPRESSION: There is a large right-sided hydrocele. Normal-appearing testicles, without masses or abnormal vascularity. The previously seen epididymitis is no longer seen. Note: Concordant preliminary findings given by the licensed massage therapist upon the completion of the examination to Dr. Tilley at 2:28 PM on 01/20/2021. Reviewed by: Rupesh Reno MD on 01/20/2021 1:39 PM JONATHON Approved by: Rupesh Reno MD on 01/20/2021 1:39 PM JONATHON Station ID: [id number]
[2021-01-20] MEDS ORDERED: cephALEXin 250 MG CAPSULE PO STA (15:08)
[2021-01-20 15:56] LABS: BILIRUBIN,URINE NEGATIVE (NEGATIVE); GLUCOSE, URINE (UA) NEGATIVE (NEGATIVE); KETONES,URINE (UA) NEGATIVE (NEGATIVE); LEUKOCYTE ESTERASE, URINE LARGE (NEGATIVE); NITRITE,URINE POSITIVE (NEGATIVE); OCCULT BLOOD,URINE SMALL (NEGATIVE); PROTEIN,URINE TRACE mg/dL (NEGATIVE); UROBILINOGEN,URINE 0.2 (NORMAL) E.U./dL (NORMAL)
[2021-01-20 15:58] LABS: CLARITY,URINE CLOUDY (CLEAR)
[2021-01-20 16:04] LABS: BACTERIA,URINE Many /HPF (None Seen); SQUAMOUS EPITHELIAL CELL,UR NONE SEEN (<= Few); WBC,URINE >25 /HPF (0-3)
[2021-01-20 17:03] VITALS: BP 117/80
== END 2021-01-20 17:03 | disposition home or self-care (01) ==
LOC: ED 12:04
DX: N30.00 Acute cystitis without hematuria (principal); N43.3 Hydrocele, unspecified; Z87.891 Personal history of nicotine dependence
CPT/HCPCS: 76870; 81001; 87086; 87181; 93975; 99283; 99284; A9270; 81003

== ENCOUNTER 2021-01-31 14:24 | Outpatient (CLI) | payer MEDICARE, OTHER | END 2021-01-31 14:25 | disposition critical access hospital (66) | LOC: EMS 14:24 | DX: N50.819 Testicular pain, unspecified (principal) | CPT/HCPCS: A0425; A0429 ==

== ENCOUNTER 2021-01-31 14:36 | Emergency (ER) | payer MEDICARE, OTHER ==
[2021-01-31] MEDS ORDERED: HYDROmorphone 1 MG/ML CARPUJECT IVP STA (15:47)
[2021-01-31] MEDS ORDERED: NYSTATIN CREAM 15 GM TUBE TOP STA (15:54)
[2021-01-31 16:06] LABS: BASOPHILS # (AUTO) 0.1 10^3/uL (0.0-0.1); BASOPHILS % (AUTO) 0.4 %; EOSINOPHILS # (AUTO) 0.1 10^3/uL (0.0-0.7); EOSINOPHILS % (AUTO) 0.4 %; HCT - HEMATOCRIT 39.3 % (42.0-52.0); LYMPHOCYTES # (AUTO) 0.7 10^3/uL (1.5-3.5); LYMPHOCYTES % (AUTO) 5.2 %; MEAN CORPUSCULAR HEMOGLOBIN 28.7 pg (27.0-31.0); MEAN CORPUSCULAR HGB CONC 30.5 g/dL (32.0-36.0); MEAN PLATELET VOLUME 10.2 fL (7.4-11.4); MONOCYTES % (AUTO) 7.4 %; NEUTROPHILS # (AUTO) 11.5 10^3/uL (1.5-6.6); NEUTROPHILS % (AUTO) 86.1 %; PLT - PLATELET COUNT 181 10^3/uL (130-450); RED BLOOD COUNT 4.18 10^6/uL (4.70-6.10); RED CELL DISTRIBUTION WIDTH 14.9 % (12.0-15.0); WHITE BLOOD COUNT 13.3 x10^3/uL (4.8-10.8)
--- NOTE | 2021-01-31 17:42 | ED Physician Documentation ---
History of Present Illness - Stated complaint Stated Complaint: MALE - Chief complaint Chief Complaint: General - History obtained from History obtained from: Patient - Additonal information Additional information: Patient comes emergency department chief complaint of ongoing scrotal redness, pain, and swelling. The patient has had recurrent issues with this and has been treated for staph infection of his scrotum previously. He has a history of scrotal abscess for which he has had to be transferred to [facility] in the past. The patient states [place] has not seen a urologist since. The patient denies any fevers or chills. He was seen here 11 days ago and started on Keflex and states that this has not made his symptoms any better. Who states he is noticed redness and tenderness of his scrotum. Review of the records reveals he has a history of a large right-sided hydrocele. No history of Eleni's gangrene. He has a chronic Ph imosis, but is able to urinate, as the end of the foreskin is patent. No other complaints at this time Review of Systems Ten Systems: 10 systems reviewed and negative Constitutional: reports: Reviewed and negative Eyes: reports: Reviewed and negative Ears: reports: Reviewed and negative Nose: reports: Reviewed and negative Throat: reports: Reviewed and negative Cardiac: reports: Reviewed and negative Respiratory: reports: Reviewed and negative GI: reports: Reviewed and negative : reports: Testicular pain, Other (Scrotal swelling) Skin: reports: Reviewed and negative Musculoskeletal: reports: Reviewed and negative Neurologic: reports: Reviewed and negative Psychiatric: reports: Reviewed and negative Endocrine: reports: Reviewed and negative Immunocompromised: reports: Reviewed and negative PD PAST MEDICAL HISTORY - Past Medical History Past Medical History: Yes Cardiovascular: Congestive heart failure, Hypertension, High cholesterol, Other Respiratory: None Neuro: None Endocrine/Autoimmune: Type 2 diabetes GI: None : None HEENT: None Psych: None Musculoskeletal: Osteoarthritis, Other Derm: Other - Past Surgical History Past Surgical History: Yes Ortho: Other - Present Medications Home Medications: Ambulatory Orders Medication Instructions Recorded Confirmed Cholecalciferol (Vitamin D3) 5,000 unit PO DAILY 05/04/13 08/22/20 [Vitamin D3] Furosemide [Lasix] 80 mg PO DAILY 05/04/13 08/22/20 Insulin Glargine,Hum.rec.anlog 30 - 35 unit SQ DAILY 05/04/13 08/22/20 [Lantus] Lisinopril 20 mg PO DAILY 05/04/13 08/22/20 Potassium Chloride 20 meq PO DAILY #30 tab.er.prt 05/04/13 08/22/20 Simvastatin [Zocor] 20 mg PO QPM 05/04/13 08/22/20 HYDROcod/ACETAM 5/325 [Hemet 5/325] 1 - 2 tablet PO Q6H PRN #14 tablet 08/20/20 08/22/20 Rivaroxaban [Xarelto] 1 tab PO DAILY 08/20/20 08/22/20 Sulfamethox/Trimeth 800/160 1 each PO BID #14 tablet 08/20/20 08/22/20 [Bactrim Ds] cephALEXin [Keflex] 1,000 mg PO BID 7 Days #28 cap 01/20/21 Fluconazole [Diflucan] 1 tablet PO DAILY 3 Days #3 tablet 01/31/21 HYDROcod/ACETAM 5/325 [Hemet 5/325] 1 - 2 tablet PO Q6H PRN #10 tablet 01/31/21 Nystatin [Nystop] 1 applic TOP BID 15 Days #15 gm 01/31/21 - Allergies Allergies/Adverse Reactions: Allergies Allergy/AdvReac Type Severity Reaction Status Date / Time No Known Drug Allergies Allergy Verified 01/20/21 12:24 - Social History Does the pt smoke?: No Smoking Status: Current every day smoker Does the pt drink ETOH?: No Does the pt have substance abuse?: No - Immunizations Immunizations are current?: No Immunizations: TDAP >10years/unknown - POLST Patient has POLST: No POLST Status: Full Code PD ED PE NORMAL - Vitals Vital signs reviewed: Yes - General General: Alert and oriented X 3, No acute distress, Well developed/nourished - HEENT HEENT: Atraumatic, PERRL, EOMI, Moist mucous membranes - Neck Neck: Supple, no meningeal sign - Cardiac Cardiac: RRR, No murmur, Strong equal pulses - Respiratory Respiratory: No respiratory distress, Clear bilaterally - Abdomen Abdomen: Soft, Non tender, Non distended - Male Male : Other (Uncircumcised male with erythema and maceration of skin of the bilateral anterior scrotum and foreskin. No induration or fluctuance. Grossly enlarged right scrotum compared with left. Left testicle tenderness.) - Derm Derm: Warm and dry - Extremities Extremities: No deformity - Neuro Neuro: Alert and oriented X 3 - Psych Psych: Normal mood, Normal affect Results - Vitals Vitals: Vital Signs - 24 hr 01/31/21 01/31/21 01/31/21 14:58 15:11 18:18 Temperature 36.6 C Heart Rate 110 H 103 H 101 H Respiratory 16 17 Rate Blood Pressure 122/70 147/78 H 63/45 L O2 Saturation 98 97 93 Oxygen O2 Source Room air - Labs Labs: Laboratory Tests 01/31/21 15:58 WBC 13.3 H RBC 4.18 L Hgb 12.0 L Hct 39.3 L MCV 94.0 MCH 28.7 MCHC 30.5 L RDW 14.9 Plt Count 181 MPV 10.2 Neut # (Auto) 11.5 H Lymph # (Auto) 0.7 L [place] # (Auto) 1.0 Eos # (Auto) 0.1 Baso # (Auto) 0.1 Absolute Nucleated RBC 0.00 Nucleated RBC % 0.0 - Rads (name of study) Scrotal US Radiology: Prelim report reviewed (Mildly increased size of R hydrocele compared with 11 days ago. No testicular abnormality. No purulent collection.) PD MEDICAL DECISION MAKING - ED course Complexity details: reviewed old records, reviewed results, re-evaluated patient, considered differential, d/w patient ED course: Pt had recently completed a course of Keflex without improvement in sx. Exam revealed maceration and intense erythema of the anterior scrotal skin without induration or fluctuance. The findings were more indicative of Yady than of cellulitis. US continued to show hydrocele, slightly increased in size. I did not find indication for inpatient management at this time, but felt that pt should be following up as an outpatient with urology for his ongoing urologic issues. I tried to get in touch with the on-call urologist at [facility], but did not get a call back. As such, I then reached out to the [facility] in [place]. They informed me that actually, the pt was in their system, because his PCP Dr. Webb had already sent a referral to them in September. They stated they would be happy to see the pt again, and that he should call tomorrow to make an appointment. They stated that if they did not hear from the pt, they would call him. I have relayed all of this to the pt, and have emphasized the importance of urologic follow-up. We have started him on Nystatin topically, and Diflucan orally. We have discussed the usual indicat ions for return. Departure - Departure Disposition: 01 Home, Self Care Clinical Impression: Candidiasis of scrotum Condition: Stable Instructions: ED Diaper Rash Infec Fungal Prescriptions: Fluconazole [Diflucan] 1 tablet PO DAILY 3 Days #3 tablet HYDROcod/ACETAM 5/325 [[place]em[place] 5/325] 1 - 2 tablet PO Q6H PRN #10 tablet PRN Reason: Pain Nystatin [Nystop] 1 applic TOP BID 15 Days #15 gm Comments: Your ultrasound shows a little more swelling in your scrotum, but no evidence of pus. Additionally, although your scrotal skin is swollen, it is soft and does not display any evidence of bacterial infection at this point. The beefy red color and the raw skin are most consistent with a yeast infection of the scrotum, on top of the chronic swelling that you have. Your case has been reviewed extensively, and I have also called the [facility] urology clinic in [place]. They actually are already aware of you because Dr. Webb already referred you there back in the spring. It seems you did not follow-up, and it is very important that you do this. The emergency department cannot solve your urologic problems, and it is very important that you have regular follow-up with urology specialist. Please call their office first thing tomorrow morning at [phone]. You will need to apply the yeast cream every day for the next 2 weeks, as directed. Please also take the oral anti-yeast medication. Discharge Date/Time: 01/31/21 18:51
--- NOTE | 2021-01-31 18:14 | Ultrasound Report ---
PROCEDURE: Testicle w/Doppler INDICATIONS: bilateral testicular pain TECHNIQUE: Real-time scanning was performed of the scrotum and testicles, with image documentation. Color and p ulse Doppler interrogation was performed of both testicles. COMPARISON: 01/20/2021 FINDINGS: Right: Testicle is normal in size at 4.3 x 2.2 x 2.0 cm, and homogenous in echotexture. The right te sticle is slightly compressed by a large right hydrocele. Epididymis is normal in overall size and mo rphology. Overlying scrotal skin is normal in thickness. Left: Testicle is normal in size at 3.1 x 2.4 x 2.7 cm, and homogeneous in echotexture. The epididym is is diffusely hypervascular, particularly in the tail. The epididymis is diffusely thickened. Small left hydrocele. Scrotal wall is slightly thickened. There is increased vascularity throughout the le ft testicle compared to the right. Doppler: Color and pulse Doppler demonstrate normal and symmetric arterial flow in both testicles. IMPRESSION: 1. Left-sided epididymitis and orchitis. 2. Large right hydrocele. 3. Preliminary report given by the technologist to the ordering provider. Reviewed by: Savanna Harden MD on 01/31/2021 6:12 PM PDT Approved by: Savanna Harden MD on 01/31/2021 6:12 PM PDT Station ID: [id number]
[2021-01-31 18:18] VITALS: BP 63/45
[2021-01-31] MEDS ORDERED: FLUCONAZOLE 100 MG TABLET PO STA (18:26)
== END 2021-01-31 18:51 | disposition home or self-care (01) ==
LOC: EDUNIT# → ED 14:36
DX: B37.49 Other urogenital candidiasis (principal); N45.3 Epididymo-orchitis; N43.3 Hydrocele, unspecified; N47.1 Phimosis; I11.0 Hypertensive heart disease with heart failure; I50.9 Heart failure, unspecified; E11.9 Type 2 diabetes mellitus without complications; Z79.4 Long term (current) use of insulin; F17.200 Nicotine dependence, unspecified, uncomplicated
CPT/HCPCS: 36415; 76870; 85025; 93975; 96374; 99284; 99285; A9270; J1170

== ENCOUNTER 2021-04-06 14:17 | Outpatient (CLI) | payer MEDICARE, OTHER ==
[2021-04-06 14:54] LABS: CREATININE 1.2 mg/dL (0.6-1.2)
[2021-04-06] MEDS ORDERED: IOVERSOL 320 100 ML VIAL IVP ONE ×2 (15:04→16:49)
[2021-04-06] MEDS ORDERED: IOVERSOL 320 50 ML VIAL ONE (15:04)
[2021-04-06] MEDS ORDERED: IOVERSOL 320 50 ML VIAL PO ONE (16:50)
--- NOTE | 2021-04-06 17:55 | CT Report ---
PROCEDURE: Abdomen/Pelvis W INDICATIONS: EDIDIDYMAL ABSCESS CONTRAST: IV CONTRAST: Optiray 320 ml: 100 PO CONTRAST: Optiray 320 ml50 TECHNIQUE: After the administration of IV and oral contrast, 5 mm thick sections acquired from the diaphragms to the symphysis. 5 mm thick coronal and sagittal reformats were acquired. For radiation dose reducti on, the following was used: automated exposure control, adjustment of mA and/or kV according to maximus ent size. COMPARISON: Aortic ultrasound dated 05/06/2020. Scrotal ultrasound dated 01/31/2021. FINDINGS: ABDOMEN: Lung bases: Ill-defined medial left basilar subpleural thickening with ill-defined margins, potential ly atelectasis is indeterminate in the absence of any relevant prior studies. Heart: Mildly enlarged. No pericardial effusion. Liver: Hepatic steatosis. Subcentimeter hepatic foci statistically representing cysts/hemangiomas alt scot technically indeterminate due to small size. Gallbladder: Unremarkable Bile ducts: Normal. Pancreas: Normal. Spleen: Normal. Adrenals: 2.2 cm left adrenal nodule. This finding technically indeterminate given the absence of wicho or studies. Kidneys and ureters: 3.0 cm partially solid left renal lesion is noted on image 37/3. No hydronephros is. Simple appearing left renal cyst measuring 3 cm. Nonobstructive 4 mm nephrolithiasis seen in the right kidney image 32/3. Ureters appear decompressed. Stomach and duodenum: Normal. Bowel: Colonic diverticulosis is incidentally noted. Normal appendix. No evidence of bowel obstructio n. There is a moderate amount of stool present in the colon. Other: No free fluid or air. Abdominal nodes: Normal. Aorta: Large infrarenal abdominal aortic aneurysm with intraluminal thrombus measuring 5.7 cm diamete r. IVC: Normal. Ventral wall: Normal. PELVIS: Bladder and reproductive: Unremarkable. Pelvic nodes: Normal. Inguinal: No hernia. There is a large scrotal fluid collection on the right, presumed hydrocele vers us pyocele. Bones: No vertebral body compression fracture. No suspicious bone lesion. Spondylitic changes and fac et arthropathy. Scattered small Schmorl's nodes. There is scoliosis and bilateral hip joint degenerat ion. IMPRESSION: Redemonstrated large right scrotal fluid collection, technically nonspecific. This could be hydrocele or hydrocele. Recommend further evaluation with repeat scrotal ultrasound as clinically warranted if necessary. Partially solid 3 cm left renal lesion. This is considered renal neoplasm until proven otherwise. Rec [facility] surgical assessment and management. 2.2 cm left adrenal nodule, indeterminate although could be metastatic disease. Adrenal protocol MRI could be performed for further assessment. Left basilar subpleural thickening which may represent atelectasis or scarring although nonspecific i n the absence of prior studies. Recommend continued surveillance with CT or radiographs as clinically appropriate. Redemonstrated large infrarenal abdominal aortic aneurysm is seen on the prior ultrasound. Recommend continued ultrasound surveillance, and surgical consultation based on large size (if not already perf ormed) Additional chronic and incidental findings as above. Findings (including all critical results) and recommendations were personally telephoned and discusse d with Dr. Santos 04-06-21 17:44 Reviewed by: Garret Coto MD on 04/06/2021 5:54 PM PST Approved by: Garret Coto MD on 04/06/2021 5:54 PM PST Station ID: [id number]
== END 2021-04-06 14:18 | disposition home or self-care (01) ==
LOC: LAB 14:17 → DI 14:18
PROVIDERS: ATTEND Physician Assistant Medical
DX: N45.4 Abscess of epididymis or testis (principal); R93.89 Abnormal findings on diagnostic imaging of other specified body structures; R93.422 Abnormal radiologic findings on diagnostic imaging of left kidney; E27.8 Other specified disorders of adrenal gland; R91.8 Other nonspecific abnormal finding of lung field; I71.4 Abdominal aortic aneurysm, without rupture; K76.0 Fatty (change of) liver, not elsewhere classified; K57.90 Diverticulosis of intestine, part unspecified, without perforation or abscess without bleeding; N28.1 Cyst of kidney, acquired; N20.0 Calculus of kidney; M47.9 Spondylosis, unspecified
CPT/HCPCS: 36415; 74177; 82565; 84520; 87077; 87086; 87181; Q9967

== ENCOUNTER 2021-04-06 16:53 | Outpatient (CLI) | payer MEDICARE, OTHER | END 2021-04-06 16:54 | disposition home or self-care (01) | LOC: LAB.R 16:53 | PROVIDERS: ATTEND Physician Assistant Medical | DX: N45.4 Abscess of epididymis or testis (principal) | CPT/HCPCS: 87077; 87086; 87181 ==

== ENCOUNTER 2021-05-28 13:10 | Outpatient (CLI) | payer MEDICARE, OTHER ==
--- NOTE | 2021-05-28 17:22 | Ultrasound Report ---
PROCEDURE: Testicle INDICATIONS: EPIDIDYMAL ABCESS TECHNIQUE: Real-time scanning was performed of the scrotum and testicles, with image documentation. Color and p ulse Doppler interrogation was performed of both testicles. COMPARISON: None. FINDINGS: Right: Testicle is normal in size at 4.0 x 1.7 x 2.6 cm, and homogenous in echotexture. Epididymis is normal in overall size and morphology. Large hydrocele noted. No varicoceles. Overlying scrotal skin is normal in thickness. Left: Testicle is normal in size at 3.8 x 1.7 x 3.0 cm, and homogeneous in echotexture. Epididymis is normal in overall size and morphology. There are left epididymal cysts. Largest left epididymal cy st measures 5 x 4 x 5 mm. No hydrocele or varicoceles. Overlying scrotal skin is thickened and heter ogeneous in echotexture.. Doppler: Color and pulse Doppler demonstrate normal and symmetric arterial flow in both testicles. IMPRESSION: 1. No evidence of testicular torsion. 2. Large right hydrocele. 3. Left epididymal cysts. 4. Left scrotal thickening and heterogeneous echotexture. Please correlate with physical findings to exclude scrotal cellulitis. Reviewed by: Aubrie Garcia MD, PhD on 05/28/2021 5:21 PM PST Approved by: Aubrie Garcia MD, PhD on 05/28/2021 5:21 PM PST Station ID: [id number]
== END 2021-05-28 13:11 | disposition home or self-care (01) ==
LOC: DI 13:10
PROVIDERS: ATTEND Physician Assistant Medical
DX: N45.4 Abscess of epididymis or testis (principal); N43.3 Hydrocele, unspecified; N50.3 Cyst of epididymis; R93.812 Abnormal radiologic findings on diagnostic imaging of left testicle

== ENCOUNTER 2022-05-03 07:37 | Outpatient (CLI) | payer MEDICARE, OTHER | END 2022-05-03 07:38 | disposition EMS.NT | LOC: EMS 07:37 | DX: R53.1 Weakness (principal) ==

== ENCOUNTER 2022-07-13 16:35 | Outpatient (CLI) | payer MEDICARE, OTHER | END 2022-07-13 16:36 | disposition critical access hospital (66) | LOC: EMS 16:35 | DX: R53.1 Weakness (principal); R26.2 Difficulty in walking, not elsewhere classified; R60.0 Localized edema; M79.604 Pain in right leg; R00.0 Tachycardia, unspecified | CPT/HCPCS: A0425; A0429 ==

== ENCOUNTER 2022-07-13 16:46 | Inpatient (IN) | payer MEDICARE, OTHER ==
[2022-07-13] MEDS ORDERED: SODIUM CHLORIDE 0.9% IV STA (17:21)
[2022-07-13] MEDS ORDERED: PIPERACILLIN/TAZOBACTAM 3.375 GM in SODIUM CHLORIDE 0.9% MINIBAG 100 ML IV STA (17:21)
[2022-07-13] MEDS ORDERED: VANCOMYCIN IV STA (17:21)
[2022-07-13] MEDS ORDERED: SODIUM CHLORIDE 0.9% 1,000 ML IV STA (17:22)
[2022-07-13] MEDS ORDERED: HYDROmorphone 1 MG/ML CARPUJECT IVP STA (17:22)
--- NOTE | 2022-07-13 17:24 | ED Physician Documentation ---
History of Present Illness - Stated complaint Stated Complaint: GEN WEAKNESS - Chief complaint Chief Complaint: General - History obtained from History obtained from: Patient - Additonal information Additional information: 77-year-old gentleman with history of diabetes presents by ambulance for evaluation of generalized weakness and lower extremity pain. He has chronic wounds to the right lower extremity that are much worse. He had been in wound care but has not been there in about 2 years. Since April he really has not gotten off the couch and has worsening pain in the right leg and knee. He does have a history of DVT remotely in the leg, not currently on anticoagulation. He was post to be on anticoagulation but could not afford it as it was over $400 a month. PD PAST MEDICAL HISTORY - Past Medical History Cardiovascular: Congestive heart failure, Hypertension, High cholesterol, Other Respiratory: None Neuro: None Endocrine/Autoimmune: Type 2 diabetes GI: None : None HEENT: None Psych: None Musculoskeletal: Osteoarthritis, Other Derm: Other - Past Surgical History Past Surgical History: Yes Ortho: Other - Present Medications Home Medications: Ambulatory Orders Medication Instructions Recorded Confirmed Cholecalciferol (Vitamin D3) 5,000 unit PO DAILY 05/04/13 08/22/20 [Vitamin D3] Furosemide [Lasix] 80 mg PO DAILY 05/04/13 08/22/20 Insulin Glargine,Hum.rec.anlog 30 - 35 unit SQ DAILY 05/04/13 08/22/20 [Lantus] Lisinopril 20 mg PO DAILY 05/04/13 08/22/20 Potassium Chloride 20 meq PO DAILY #30 tab.er.prt 05/04/13 08/22/20 Simvastatin [Zocor] 20 mg PO QPM 05/04/13 08/22/20 HYDROcod/ACETAM 5/325 [[place] 5/325] 1 - 2 tablet PO Q6H PRN #14 tablet 08/20/20 08/22/20 Rivaroxaban [Xarelto] 1 tab PO DAILY 08/20/20 08/22/20 Sulfamethox/Trimeth 800/160 1 each PO BID #14 tablet 08/20/20 08/22/20 [Bactrim Ds] cephALEXin [Keflex] 1,000 mg PO BID 7 Days #28 cap 01/20/21 Fluconazole [Diflucan] 1 tablet PO DAILY 3 Days #3 tablet 01/31/21 HYDROcod/ACETAM 5/325 [[place] 5/325] 1 - 2 tablet PO Q6H PRN #10 tablet 01/31/21 Nystatin [Nystop] 1 applic TOP BID 15 Days #15 gm 01/31/21 - Allergies Allergies/Adverse Reactions: Allergies Allergy/AdvReac Type Severity Reaction Status Date / Time No Known Drug Allergies Allergy Verified 07/13/22 17:08 - Social History Does the pt smoke?: No Smoking Status: Current every day smoker Does the pt drink ETOH?: No Does the pt have substance abuse?: No - Immunizations Immunizations are current?: No Immunizations: TDAP >10years/unknown - POLST Patient has POLST: No POLST Status: Full Code PD ED PE NORMAL - Vitals Vital signs reviewed: Yes - General General: Other (He appears uncomfortable and is in a lot of pain from his right leg. He is hypotensive and tachycardic.) - HEENT HEENT: PERRL, EOMI - Neck Neck: Supple, no meningeal sign, No bony TTP - Cardiac Cardiac: RRR, No murmur - Respiratory Respiratory: No respiratory distress, Clear bilaterally - Abdomen Abdomen: Non tender - Back Back: No CVA TTP, No spinal TTP - Derm Derm: Normal color, Warm and dry - Extremities Extremities: Other (There around the right knee is quite swollen but and tender but not red or warm. That said below the knee he has significant wounds with purulent drainage and cellulitis.) - Neuro Neuro: Alert and oriented X 3, Normal speech Results - Vitals Vitals: Vital Signs - 24 hr 07/13/22 07/13/22 07/13/22 17:08 17:53 18:54 Temperature 37 C Heart Rate 107 H 119 H 101 H Respiratory 24 32 H 25 H Rate Blood Pressure 94/71 104/78 108/70 O2 Saturation 98 99 96 Oxygen O2 Source Room air - EKG (time done) 5328 EKG releavant findings:: EKG personally interpreted by author of this note. Relevant findings are: Rate: Rate (enter#) (120) Rhythm: Sinus tachycardia Intervals: Other (ivcd) Ischemia: Normal ST segments, Q waves (inferior). No: ST elevation c/w ischemia, ST depression - Labs Labs: Microbiology 07/13/22 17:55 Wound Culture - Preliminary Leg - Right Laboratory Tests 07/13/22 07/13/22 07/13/22 17:35 17:35 17:35 WBC 11.2 H RBC 3.83 L Hgb 11.0 L Hct 35.3 L MCV 92.2 MCH 28.7 MCHC 31.2 L RDW 13.8 Plt Count 180 MPV 10.7 Neut # (Auto) 8.8 H Lymph # (Auto) 1.1 L [place] # (Auto) 0.9 Eos # (Auto) 0.3 Baso # (Auto) 0.0 Absolute Nucleated RBC 0.00 Nucleated RBC % 0.0 Sodium 139 Potassium 4.5 Chloride 103 Carbon Dioxide 27 Anion Gap 9.0 BUN 24 H Creatinine 0.9 Estimated GFR (MDRD) 81 L Glucose 173 H Lactic Acid 1.0 Calcium 9.5 Total Bilirubin 0.6 AST 18 ALT 15 Alkaline Phosphatase 81 Total Protein 7.7 Albumin 2.3 L Globulin 5.4 H Albumin/Globulin Ratio 0.4 L PD Medical Decision Making - ED course ED course: 77-year-old gentleman presents with a terrible cellulitis that is purulent to the right leg. It was cultured up, both blood and wound. And he is placed on broad-spectrum antibiotics with Zosyn and vancomycin. CBC reviewed with leukocytosis at 11 and mild anemia also at 11. CMP reviewed with mild elevation in BUN and hyperglycemia. Lactate normal. Verbal report from tax accounting assistant, he has a nonocclusive DVT in the right lower extremity with peripheral vascular disease in both legs, right worse than left but with flow, no occlusion. Decision to admit was made at 7:43 PM. Telehealth consultation placed. Case discussed with Dr. Ryder, telehealth hospitalist at 7:59 PM and he will see the patient. Departure - Departure Disposition: [facility] DC/Xfer Clinical Impression: Cellulitis of right leg, Peripheral vascular disease Right leg DVT Qualifiers: Affected thrombotic vein of extremity: femoral Chronicity: acute Qualified Code(s): I82.411 - Acute embolism and thrombosis of right femoral vein Sepsis Qualifiers: Sepsis type: sepsis due to unspecified organism Sepsis acute organ dysfunction status: without acute organ dysfunction Qualified Code(s): A41.9 - Sepsis, unspecified organism Condition: Serious Discharge Date/Time: 07/13/22 21:20
[2022-07-13 17:42] LABS: BASOPHILS % (AUTO) 0.3 %; EOSINOPHILS # (AUTO) 0.3 10^3/uL (0.0-0.7); EOSINOPHILS % (AUTO) 2.9 %; HCT - HEMATOCRIT 35.3 % (42.0-52.0); LYMPHOCYTES # (AUTO) 1.1 10^3/uL (1.5-3.5); LYMPHOCYTES % (AUTO) 9.6 %; MEAN CORPUSCULAR HEMOGLOBIN 28.7 pg (27.0-31.0); MEAN CORPUSCULAR HGB CONC 31.2 g/dL (32.0-36.0); MEAN CORPUSCULAR VOLUME 92.2 fL (80.0-94.0); MEAN PLATELET VOLUME 10.7 fL (7.4-11.4); MONOCYTES # (AUTO) 0.9 10^3/uL (0.0-1.0); MONOCYTES % (AUTO) 8.4 %; NEUTROPHILS # (AUTO) 8.8 10^3/uL (1.5-6.6); NEUTROPHILS % (AUTO) 78.5 %; PLT - PLATELET COUNT 180 10^3/uL (130-450); RED BLOOD COUNT 3.83 10^6/uL (4.70-6.10); RED CELL DISTRIBUTION WIDTH 13.8 % (12.0-15.0); WHITE BLOOD COUNT 11.2 x10^3/uL (4.8-10.8)
[2022-07-13 18:16] LABS: ALBUMIN 2.3 g/dL (3.2-5.5); ALBUMIN/GLOBULIN RATIO 0.4 (1.0-2.2); BILIRUBIN,TOTAL 0.6 mg/dL (0.2-1.0); CALCIUM 9.5 mg/dL (8.5-10.3); CREATININE 0.9 mg/dL (0.6-1.2); POTASSIUM 4.5 mmol/L (3.5-5.0); TOTAL PROTEIN 7.7 g/dL (6.7-8.2)
[2022-07-13] MEDS ORDERED: VANCOMYCIN 1 GM VIAL ONE (18:45)
[2022-07-13] MEDS ORDERED: ENOXAPARIN 30 MG/0.3 ML SYRINGE SUBQ STA (19:40)
[2022-07-13] MEDS ORDERED: ENOXAPARIN 100 MG/ML SYRINGE SUBQ STA (19:40)
[2022-07-13] MEDS ORDERED: ONDANSETRON 4 MG/2 ML VIAL IVP PRN (19:59)
[2022-07-13] MEDS ORDERED: MORPHINE 2 MG/ML CARPUJECT IVP PRN (19:59)
--- NOTE | 2022-07-13 20:15 | Ultrasound Report ---
PROCEDURE: Duplex Ext Veins Right INDICATIONS: leg pain TECHNIQUE: Real-time imaging, as well as color and pulse Doppler interrogation, were performed of the lower extr emity deep veins from the inguinal ligament to the popliteal fossa. COMPARISON: None. FINDINGS: Incomplete compressibility is seen in the common femoral vein, profunda femoral vein and th roughout the superficial femoral vein. There is a trace amount of venous flow adjacent to the poplite al vein clot. Most segments are occlusive to near occlusive. Calf veins were not imaged due to the presence of bandages. IMPRESSION: 1. Partially occlusive to nearly occlusive thrombus throughout the right lower extremity deep venous system. 2. Preliminary results given by the director of direct marketing to the ordering provider immediately following the st udy. Reviewed by: Savanna Harden MD on 07/13/2022 8:13 PM PST Approved by: Savanna Harden MD on 07/13/2022 8:13 PM PST Station ID: [id number]
--- NOTE | 2022-07-13 20:20 | Ultrasound Report ---
PROCEDURE: Duplex Lwr Ext Arterial Bilat INDICATIONS: leg pain wounds TECHNIQUE: Color and pulse Doppler interrogation was performed of both lower extremity arterial systems, with im age documentation. COMPARISON: None FINDINGS: Right lower extremity: Common femoral artery: 63 cm/sec, with monophasic flow. Deep femoral artery: 48 cm/sec, with monophasic flow. Proximal superficial femoral artery: 87 cm/sec, with monophasic flow. Mid superficial femoral artery: 105 cm/sec, with monophasic flow. Distal superficial femoral artery: 77 cm/sec, with monophasic flow. Popliteal artery: 71 cm/sec, with monophasic flow. Calf veins not imaged due to bandages. Johnson-scale imaging description: Luminal irregularity and calcification seen throughout the femoral a rtery. No focal stenoses. Left lower extremity: Common femoral artery: 56 cm/sec, with biphasic flow. Deep femoral artery: 77 cm/sec, with biphasic flow. Proximal superficial femoral artery: 72 cm/sec, with biphasic flow. Mid superficial femoral artery: 86 cm/sec, with biphasic flow. Distal superficial femoral artery: 53 cm/sec, with biphasic flow. Popliteal artery: 31 cm/sec, with biphasic flow. Posterior tibial artery: 60 cm/sec, with biphasic flow. Anterior tibial artery/dorsalis pedis: 54 cm/sec, with biphasic flow. Johnson-scale imaging description: Calcification causing mild subjective focal narrowing in the common femoral artery. Heavy calcification throughout the superficial femoral artery. No other areas of foca l stenosis. IMPRESSION: 1. Heavy peripheral arterial calcification bilaterally. 2. Mild focal stenosis in the left common femoral artery, unlikely to be hemodynamically significant. 3. Runoff to the right foot is not imaged due to the presence of bandages. Reviewed by: Savanna Harden MD on 07/13/2022 8:18 PM PST Approved by: Savanna Harden MD on 07/13/2022 8:18 PM PST Station ID: [id number]
[2022-07-13] MEDS: SODIUM CHLORIDE 0.9% 1,000 ML IV SCH (20:21)
--- NOTE | 2022-07-13 20:25 | HISTORY & PHYSICAL EXAMINATION ---
Chief Complaint - Chief Complaint Chief Complaint: weakness History of Present Illness - History of Present Illness HPI Comment/Other: 77 y old male with PMH HTN, DM2, HLP, CHF, Morbid obesity, DVT , chronic right leg wounds, BIBA due to generalized weakness and right leg wound which are getting worse. As per pt, he is not able to get out of bed for last 2 months due to weakness. He used to take Xarelto but stopped taking it as he could not afford it. Denies fever, FAUSTIN, chest pain, SOB, Nausea, vomiting, diarrhea, constipation. On presentaion, Temp 37, tachycardia and hypotension. Labs showed leukocytosis. Lactic acid 1.0 As per ER physician, he did bed side venous doppler which showed non-occlusive DVT in right femoral vein. In ER, pt received NS 1L, IV Zosyn and lovenox sq Patient is being admitted due to cellulitis and wound in right leg, SIRS/Severe sepsis, and DVT History - Past Medical History Cardiovascular: reports: Congestive heart failure, Hypertension, High cholesterol, Other Respiratory: reports: None Neuro: reports: None Endocrine/Autoimmune: reports: Type 2 diabetes GI: reports: None : reports: None HEENT: reports: None Psych: reports: None Musculoskeletal: reports: Osteoarthritis, Other Derm: reports: Other MRSA Hx?: No - Past Surgical History Ortho: reports: Other - Family & Social History Family History: Mother: , Father: Family History Comment/Other: No family history of coronary artery disease, stroke, diabetes or cancer. Social History Notes: The patient lives in [place], [place] with his to whom he has been for a long time. The patient jokes saying that it feels like it has been 230 years. The patient has 3 children, 2 daughters and 1 son. 2 of his children live in [place] and one lives in [place]. The alec byrd is originally from [place], [place]. His parents moved to [place] after the war and then he came back to the [place] area when he joined the [employer]. The patient is a retired [employer]. He is a smoker and currently vapes prior to this he smoked 1 pack of cigarettes a day and has been doing so for over 50 years. The patient does not drink alcohol and denies any illicit drug use. - POLST Patient has POLST: No POLST Status: Full Code Meds/Allgy - Home Medications Home Medications: Ambulatory Orders Medication Instructions Recorded Confirmed Cholecalciferol (Vitamin D3) 5,000 unit PO DAILY 05/04/13 08/22/20 [Vitamin D3] Furosemide [Lasix] 80 mg PO DAILY 05/04/13 08/22/20 Insulin Glargine,Hum.rec.anlog 30 - 35 unit SQ DAILY 05/04/13 08/22/20 [Lantus] Lisinopril 20 mg PO DAILY 05/04/13 08/22/20 Potassium Chloride 20 meq PO DAILY #30 tab.er.prt 05/04/13 08/22/20 Simvastatin [Zocor] 20 mg PO QPM 05/04/13 08/22/20 HYDROcod/ACETAM 5/325 [[place] 5/325] 1 - 2 tablet PO Q6H PRN #14 tablet 08/20/20 08/22/20 Rivaroxaban [Xarelto] 1 tab PO DAILY 08/20/20 08/22/20 Sulfamethox/Trimeth 800/160 1 each PO BID #14 tablet 08/20/20 08/22/20 [Bactrim Ds] cephALEXin [Keflex] 1,000 mg PO BID 7 Days #28 cap 01/20/21 Fluconazole [Diflucan] 1 tablet PO DAILY 3 Days #3 tablet 01/31/21 HYDROcod/ACETAM 5/325 [[place] 5/325] 1 - 2 tablet PO Q6H PRN #10 tablet 01/31/21 Nystatin [Nystop] 1 applic TOP BID 15 Days #15 gm 01/31/21 - Allergies Allergies/Adverse Reactions: Allergies Allergy/AdvReac Type Severity Reaction Status Date / Time No Known Drug Allergies Allergy Verified 07/13/22 17:08 Review of Systems - Constitutional Constitutional: reports: Weakness - Other Findings Other Findings: 10 point systems were reviewed and were negative except mentioned in HPI Exam - Vital Signs Vital Signs: Vital Signs x48h Temp Pulse Resp BP Pulse Ox 07/13/22 18:54 101 H 25 H 108/70 96 07/13/22 17:53 119 H 32 H 104/78 99 07/13/22 17:08 37 C 107 H 24 94/71 98 - Physical Exam General Appearance: positive: No acute distress, Alert Eyes Bilateral: positive: Normal inspection ENT: positive: ENT inspection nml Neck: positive: Nml inspection Respiratory: positive: No respiratory distress, Breath sounds nml Cardiovascular: positive: Regular rate & rhythm Abdomen: positive: Non-tender, No distention Extremities: positive: Other (Right leg wrapped with dressing) Neurologic/Psychiatric: positive: Oriented x3 Conclusion/Plan - Lab Results Fish Bones: 07/13/22 17:35 07/13/22 17:35 - Other Other Results/Comments: A: Cellulitis of right leg SIRS/ severe sepsis Chronic wounds of right leg Right leg DVT Weakness and debility HTN DM 2 HLP H/O CHF, Unspecified Plan: Admit to med surg with tele Follow cultures NS @ 100 cc/h Start zosyn and vanco Repeat CBC, BMP in am Wound care Start lovenox 1 mg/kg sq q12h PT/OT Hold lisinopril due to hypotension and sepsis Cont lantus and SSI Supportive care DVT prophylaxic: On lovenox Full code Pt is admitted as inpatient as more than 2 midnight stay is expected
[2022-07-13] MEDS: HYDROcod/ACETAM 5/325 MG TABLET PO PRN (22:30)
[2022-07-13] MEDS: INSULIN LISPRO 300 UNIT/3 ML PEN SUBQ SCH (22:32)
[2022-07-13] MEDS: INSULIN GLARGINE-YFGN 300 UNIT/3 ML PEN SUBQ SCH (22:33)
[2022-07-14] MEDS: SODIUM CHLORIDE FLUSH 0.9% 10 ML SYRINGE IVP SCH ×3 (00:20→16:59)
[2022-07-14] MEDS: PIPERACILLIN/TAZOBACTAM 3.375 GM in SODIUM CHLORIDE 0.9% MINIBAG 100 ML IV SCH ×4 (00:25→19:50)
[2022-07-14 05:08] LABS: BASOPHILS % (AUTO) 0.5 %; EOSINOPHILS # (AUTO) 0.2 10^3/uL (0.0-0.7); EOSINOPHILS % (AUTO) 2.8 %; HCT - HEMATOCRIT 32.7 % (42.0-52.0); HGB - HEMOGLOBIN 10.2 g/dL (14.0-18.0); LYMPHOCYTES % (AUTO) 11.5 %; MEAN CORPUSCULAR HEMOGLOBIN 28.7 pg (27.0-31.0); MEAN CORPUSCULAR HGB CONC 31.2 g/dL (32.0-36.0); MEAN CORPUSCULAR VOLUME 92.1 fL (80.0-94.0); MEAN PLATELET VOLUME 11.2 fL (7.4-11.4); MONOCYTES # (AUTO) 0.6 10^3/uL (0.0-1.0); MONOCYTES % (AUTO) 7.2 %; NEUTROPHILS # (AUTO) 6.5 10^3/uL (1.5-6.6); NEUTROPHILS % (AUTO) 77.8 %; PLT - PLATELET COUNT 212 10^3/uL (130-450); RED BLOOD COUNT 3.55 10^6/uL (4.70-6.10); WHITE BLOOD COUNT 8.4 x10^3/uL (4.8-10.8)
[2022-07-14 05:18] LABS: CALCIUM 8.9 mg/dL (8.5-10.3); CREATININE 0.9 mg/dL (0.6-1.2); POTASSIUM 4.5 mmol/L (3.5-5.0)
[2022-07-14] MEDS: HYDROcod/ACETAM 5/325 MG TABLET PO PRN ×3 (05:36→21:37)
[2022-07-14] MEDS ORDERED: PIPERACILLIN/TAZOBACTAM 3.375 GM in SODIUM CHLORIDE 0.9% MINIBAG 100 ML IV SCH (07:47)
[2022-07-14] MEDS ORDERED: VANCOMYCIN INJ 2 GM in SODIUM CHLORIDE 0.9% 500 ML IV SCH (08:00)
[2022-07-14] MEDS ORDERED: ENOXAPARIN 100 MG/ML SYRINGE SUBQ SCH (08:00)
[2022-07-14] MEDS: INSULIN LISPRO 300 UNIT/3 ML PEN SUBQ SCH ×4 (08:10→20:42)
[2022-07-14] MEDS: SODIUM CHLORIDE 0.9% 1,000 ML IV SCH (08:10)
[2022-07-14] MEDS ORDERED: SODIUM CHLORIDE 0.9% 1,000 ML IV SCH (08:25)
[2022-07-14] MEDS: VANCOMYCIN INJ 1.5 GM in SODIUM CHLORIDE 0.9% 500 ML IV SCH ×2 (08:25→19:54)
--- NOTE | 2022-07-14 08:59 | PHARMACY PROGRESS NOTE ---
- Therapy Status Vancomycin regimen day #: 1 Therapy status: Awaiting steady state Basis for treatment: Empirical Treatment indication: SEPSIS AND CELLULITIS Trough goal: 15-20 Concurrent antibiotics: ZOSYN - PHILIP Risk Risk level for Acute Kidney Injury: High Acute Kidney Injury risk factors: Piperacillin/Tozobactam, Wt >100kg or BMI >40, Sepsis - Monitoring and Recommendation Clinical response to treatment: I&O Previous 24 hours 07/12/22 07/13/22 07/15/22 23:59 23:59 00:59 Intake Total 200 1200 Balance 200 1200 Lab Results 07/14/22 07/13/22 04:41 17:35 BUN 23 H 24 H Creatinine 0.9 0.9 Estimated GFR (MDRD) 81 L 81 L Cultures 07/13/22 17:55 Leg - Right Wound Culture - Preliminary Monitoring plan: Daily serum creatinine
[2022-07-14] MEDS: NYSTATIN POWDER 15 GM TOP SCH ×2 (11:17→19:50)
--- NOTE | 2022-07-14 12:17 | CONSULTATION NOTE ---
Referring Provider Name of Referring Provider:: Primary (Jenifer Blunt) Consult Date: 07/14/22 Chief Complaint - Chief Complaint Chief Complaint: right leg wound, scrotal edema History of Present Illness - Admitted From Admitted From:: ED - History Obtained From Records Reviewed: yes History obtained from: patient, chart, primary team Exam Limitations: patient is poor historian - History of Present Illness HPI Comment/Other: This is a 77 y/o male with PMH of multiple comorbidities including HTN, DM2, HLP, CHF, Morbid obesity, DVT , chronic right leg wounds, who was admitted to the ED after calling EMS for worsening of his leg wounds. Patient states he's been unable to stand or ambulate since the first of the year, and has been staying on his couch. He is prescribed Xarelto but stopped taking it as he could not afford it. He denies fever, chills, chest pain, SOA, Nausea, vomiting, diarrhea, and constipation. He has urinary incontinence but is able to void on his own. At the time of my exam, he states he leg feels, "about the same" and that he "always" has pain in his legs and scrotum. On review of the patient's chart, he has a large infrarenal AAA containing thrombus and a right renal mass suspicious for malignancy. The patient denies prior knowledge of these problems and states he "doesn't even know what a urologist is." After I describe this specialty, he does not think he's ever seen a urologist in the past. History - Past Medical History Cardiovascular: reports: Congestive heart failure, Hypertension, High cholesterol, Other Respiratory: reports: None Neuro: reports: None Endocrine/Autoimmune: reports: Type 2 diabetes GI: reports: None : reports: None HEENT: reports: None Psych: reports: None Musculoskeletal: reports: Osteoarthritis, Other Derm: reports: Other MRSA Hx?: No Other Past Medical History: Right knee chronic pain - Past Surgical History Ortho: reports: Other - Family & Social History Family History: Mother: , Father: Family History Comment/Other: No family history of coronary artery disease, stroke, diabetes or cancer. Social History Notes: The patient lives in [place], [place] with his of many years. . The patient has 3 children, 2 live in [place] and one lives in [place]. The patient is a retired [employer]. He is a smoker and currently vapes (50+pk/yr hx). The patient does not drink alcohol and denies any illicit drug use. - POLST Patient has POLST: No POLST Status: Full Code Meds/Allgy - Home Medications Home Medications: Ambulatory Orders Medication Instructions Recorded Confirmed Cholecalciferol (Vitamin D3) 5,000 unit PO DAILY 05/04/13 08/22/20 [Vitamin D3] Furosemide [Lasix] 80 mg PO DAILY 05/04/13 08/22/20 Insulin Glargine,Hum.rec.anlog 30 - 35 unit SQ DAILY 05/04/13 08/22/20 [Lantus] Lisinopril 20 mg PO DAILY 05/04/13 08/22/20 Potassium Chloride 20 meq PO DAILY #30 tab.er.prt 05/04/13 08/22/20 Simvastatin [Zocor] 20 mg PO QPM 05/04/13 08/22/20 HYDROcod/ACETAM 5/325 [[place] 5/325] 1 - 2 tablet PO Q6H PRN #14 tablet 08/20/20 08/22/20 Rivaroxaban [Xarelto] 1 tab PO DAILY 08/20/20 08/22/20 Sulfamethox/Trimeth 800/160 1 each PO BID #14 tablet 08/20/20 08/22/20 [Bactrim Ds] cephALEXin [Keflex] 1,000 mg PO BID 7 Days #28 cap 01/20/21 Fluconazole [Diflucan] 1 tablet PO DAILY 3 Days #3 tablet 01/31/21 HYDROcod/ACETAM 5/325 [[place] 5/325] 1 - 2 tablet PO Q6H PRN #10 tablet 01/31/21 Nystatin [Nystop] 1 applic TOP BID 15 Days #15 gm 01/31/21 - Allergies Allergies/Adverse Reactions: Allergies Allergy/AdvReac Type Severity Reaction Status Date / Time No Known Drug Allergies Allergy Verified 07/13/22 17:08 Review of Systems - Constitutional Constitutional: reports: Other (As per HPI and PMH.) Exam - Vital Signs Reviewed Vital Signs: Yes Vital Signs: Vital Signs x48h Temp Pulse Resp BP Pulse Ox 07/14/22 08:00 36.3 C L 93 22 102/58 L 90 L 07/14/22 05:52 36.3 C L 83 18 97/63 95 - Physical Exam General Appearance: positive: No acute distress, Alert Eyes Bilateral: positive: PERRL, EOMI ENT: positive: No signs of dehydration, Other (hard of hearing) Neck: positive: Nml inspection Respiratory: positive: No respiratory distress Cardiovascular: positive: Regular rate & rhythm Peripheral Pulses: positive: Other (dopplerable pulses in B LE (per sono)) Abdomen: positive: Non-tender, Other (obese, scrotum with chronically thickened skin and edema, erythema in B inguinal folds consistent with candidasis, small (3mm) on right posterior aspect of scrotum without any passive drainage or drainage noted by me with palpation. No induration of the scrotum, mildly tender.). negative: Guarding, Rebound Extremities: positive: Other (B LE wounds, R much more extensive than left. Both appear chronic with minimal edema. R leg demonstrates scaling and chronic changes. No areas of necrosis or fluctuance. Some areas of granulation. Wound dressed with iodoform, kerlex, tubigrip.) Neurologic/Psychiatric: positive: Oriented x3, Weakness Conclusion and Plan - Lab Results Laboratory Results 07/14/22 04:41: Sodium 140, Potassium 4.5, Chloride 107, Carbon Dioxide 26, Anion Gap 7.0, BUN 23 H, Creatinine 0.9, Estimated GFR (MDRD) 81 L, Glucose 146 H, Calcium 8.9 07/14/22 04:41: WBC 8.4, RBC 3.55 L, Hgb 10.2 L, Hct 32.7 L, MCV 92.1, MCH 28.7, MCHC 31.2 L, RDW 14.0, Plt Count 212, MPV 11.2, Neut # (Auto) 6.5, Lymph # (Auto) 1.0 L, [place] # (Auto) 0.6, Eos # (Auto) 0.2, Baso # (Auto) 0.0, Absolute Nucleated RBC 0.00, Nucleated RBC % 0.0 07/13/22 17:35: Lactic Acid 1.0 07/13/22 17:35: Sodium 139, Potassium 4.5, Chloride 103, Carbon Dioxide 27, Anion Gap 9.0, BUN 24 H, Creatinine 0.9, Estimated GFR (MDRD) 81 L, Glucose 173 H, Calcium 9.5, Total Bilirubin 0.6, AST 18, ALT 15, Alkaline Phosphatase 81, Total Protein 7.7, Albumin 2.3 L, Globulin 5.4 H, Albumin/Globulin Ratio 0.4 L 07/13/22 17:35: WBC 11.2 H, RBC 3.83 L, Hgb 11.0 L, Hct 35.3 L, MCV 92.2, MCH 28.7, MCHC 31.2 L, RDW 13.8, Plt Count 180, MPV 10.7, Neut # (Auto) 8.8 H, Lymph # (Auto) 1.1 L, [place] # (Auto) 0.9, Eos # (Auto) 0.3, Baso # (Auto) 0.0, Absolute Nucleated RBC 0.00, Nucleated RBC % 0.0 - Diagnostic Imaging Results Diagnostic Imaging Results: positive: Final report reviewed Diagnostic Imaging Results Comments: Venous and arterial sono of R LE demonstrates monophasic flow throughout the R LE, significant, non occlusive DVT in R LE. I personally reviewed the images and results of these studies. - Consultation Note Consultation Note: 77 y/o M with multiple medical comorbidities and psychosocial concerns. 1. B LE wounds - wounds appear chronic in nature - no signs of necrosis or abscess. No emergent surgical intervention needed at this time. - recommend wound team consultation to best clean, dress, and follow these wounds. - S aureas growing from wound cx, sensitivities pending - He has multiple risk factors for poor wound healing including DM, PVD, chronic venous insuffiency, and inability to provide his own wound care. - on lovenox, Eliquis for DVT (I suspect this is chronic in nature). Consider IVC filter is patient is unable to afford/be compliant with anticoagulation. 2. Scrotal drainage, chronic phymosis, right renal mass - no drainage noted on my exam - recommend scrotal ultrasound to assess for possible undrained fluid collection vs edema - he has a history of epididimal abscess, remotely, over one year ago - patient denies ever having seen urology in the past. If acute fluid collection is noted, patient may need transfer for urology. 3. AAA with thrombus, right renal mass - patient denies having seen a vascular surgeon in the past. 4. HTN, DM2, HLP, CHF, Morbid obesity, DVT , chronic right leg wounds, weakness, inability to care for self - as per primary team - Patient states daughter comes over weekly to help him bathe. Recommend SW consult to better understand if his home situation is safe. Thank you for consulting me in the care of this patient. I will follow peripherally. Please call with any questions or concerns.
--- NOTE | 2022-07-14 14:52 | Ultrasound Report ---
PROCEDURE: Testicle INDICATIONS: scrotal abscess TECHNIQUE: Real-time scanning was performed of the scrotum and testicles, with image documentation. Color and p ulse Doppler interrogation was performed of both testicles. COMPARISON: None. FINDINGS: Right: Testicle is normal in size at 4.5 x 2.2 x 1.7 cm, and homogenous in echotexture. The epididym ides are not well visualized. There is a large right hydrocele.. Overlying scrotal skin is normal in thickness. Left: Testicle is normal in size at 3.4 x 2.2 x 2.6 cm, and homogeneous in echotexture. The epididym ides are not well visualized. No hydrocele or varicoceles. Overlying scrotal skin is normal in thick ness. Doppler: Color and pulse Doppler demonstrate normal and symmetric arterial flow in both testicles. IMPRESSION: 1. Large right hydrocele. 2. No evidence of torsion. 3. Limited exam with no other significant abnormality identified. Reviewed by: Bal Boykin on 07/14/2022 1:51 PM JONATHON Approved by: Bal Boykin on 07/14/2022 1:51 PM JONATHON Station ID: [id number]
--- NOTE | 2022-07-14 16:09 | PROVIDER PROGRESS NOTE ---
Assessment/Plan - Problem List (1) Cellulitis of right leg Assessment/Plan: The right lower extremity has multiple open wounds in various stages of healing, some are draining, the surrounding skin is red and edematous and warm. He has had no fever, no elevated white blood count and no elevated lactic acid level, ruling out sepsis Plan: Await blood culture results and wound culture results that have been sent off Continue with empiric IV antibiotics, Zosyn and Vanco, in this Diabetic patient We will obtain General Surgery consult for recommendations regarding wound care. Very likely general surgery will recommend that the wound clinic continue to manage this patient (Today is Friday and we have no MAC Wound provider available today) (2) Open wound of right lower leg Assessment/Plan: In addition to cellulitis there are multiple open and draining wounds of the right lower extremity. He has had this chronically he says. Plan: We will give topical care, leg elevation, pain meds if needed We will obtain general surgery consult for recommendations regarding wound care. Very likely general surgery will recommend that the wound clinic continue to manage this patient (Today is Friday and we have no MAC Wound provider available today) (3) Right leg DVT The patient describes a longstanding history of right knee pain. Possibly this finding may be adding to the pain in his mid right leg. The patient has been started on Lovenox at therapeutic dosing 1 mg/kg twice daily. Plan: Will change to oral Eliquis at doses for DVT (10 mg twice daily for 7 days then the dose decreases). (4) Groin mass There is a large pendulous mass in his right groin, in the area of his scrotum however it does not have external features of the scrotum since it is light pink and smooth. There is a hole, seen on photos, that was draining white pus In reviewing his [facility] chart which I did, it appears he had imaging of the scrotum done with ultrasound in May 2021, this was ordered by the PA at [facility] urology. The ultrasound then showed a R hydrocele, L epididymal cyst and possible scrotal cellulitis. The patient claims he has never seen a Urologist (was asked by me, Gen Surg DR Robin and Sheila, our [facility] RN). There is visible purulent drainage coming out of a small hole in this mass. There is no surrounding redness, warmth or tenderness however. Plan: We will also request input from general surgery regarding management going forward with this mass. We will order a wound culture of the drainage coming from the small hole Will obtain repeat imaging with ultrasound to define the contents of this mass (5) VTach The patient was placed on telemetry by the admitting telemedicine doctor because he was tachycardic, concern for sepsis. Telemetry showed an 8 beat run of monomorphic wide-complex tachycardia which is likely V. tach, rate 100, occurre at 1601. RN said the patient was asymptomatic at this time with a normal blood pressure Plan: We will check troponins, magnesium and potassium, replace if low. We will obtain an Echocardiogram Remain on telemetry (6) Chronic CHF, Unspecified I50.9 Patient carries a history of CHF. He is not on medications for systolic heart failure. The last Echo here, was done in 2018 and showed a preserved EF and pr obable diastolic heart failure Plan: We will obtain an Echocardiogram to establish the LV and RV function. Given his obesity, he may have right heart failure to explain some of the leg edema (7) Weakness The patient admitted he has been on his couch and not walking for the last 2-3 months. He also described to Social Work that he only gets help from a family member on weekends when his daughter visits, as his apparently does not help him routinely, even though she lives with him. Plan: We will order PT and OT evaluation (8) DM 2 As per history. Plan: We will order a diabetic diet, hypoglycemia protocol, fingerstick checks to be covered with SS insulin Obtain A1c (9) HTN Plan: We will resume his home meds when blood pressure will allow and when his med list is we can (10) Morbid obesity BMI 40-45 This complicates his care (11) CHENEGA As per physical exam - Current Meds Current Meds: Current Medications Generic Name Dose Route Start Last Admin Trade Name Freq PRN Reason Stop Dose Admin Hydrocodone Bitart/Acetaminophen 1 tab 07/13/22 19:59 07/14/22 05:36 Hydrocod/Acetam 5/325 Mg Tablet PO 1 tab Q4HR PRN Administration Pain 5 to 7 Vancomycin HCl 1.5 gm/ Sodium 500 mls @ 250 mls/hr 07/14/22 08:00 07/14/22 10:25 Chloride IV Infused Q12H FARIDA Infusion Piperacillin Sod/Tazobactam 100 mls @ 25 mls/hr 07/14/22 13:30 07/14/22 14:10 Sod 3.375 gm/ Sodium Chloride IV 25 mls/hr Q6H FARIDA Administration Insulin Glargine-yfgn 30 unit 07/13/22 21:00 07/13/22 22:33 Insulin Glargine-Yfgn 300 Unit/3 Ml Pen SUBQ 30 unit QPM FARIDA Administration Insulin Human Lispro 2 - 10 unit 07/13/22 21:00 07/14/22 12:13 Insulin Lispro 300 Unit/3 Ml Pen SUBQ Not Given 0800,1200,1700,2100 [facility] Protocol Nystatin 1 applic 07/14/22 09:00 07/14/22 11:17 Nystatin Powder 15 Gm TOP Not Given BID FARIDA Sodium Chloride 10 ml 07/14/22 01:00 07/14/22 08:11 Sodium Chloride Flush 0.9% 10 Ml Syringe IVP 10 ml 0100,0900,1700 FARIDA Administration - Lab Result Fish Bone Diagrams: 07/14/22 04:41 07/14/22 04:41 - Additional Planning My Orders: My Active Orders 07/14/22 Consult [General Surgery Consult] [CONS] Routine 07/14/22 Breakfast Carb-controlled Diet [DIET] 07/14/22 08:21 Telemetry- [RC] Q4HR 07/14/22 08:25 Sodium Chloride 0.9% [Normal Saline 0.9%] 1,000 ml IV TKO 07/14/22 09:00 Nystatin [Nystop] 1 applic TOP BID 07/14/22 21:00 Apixaban [Eliquis] 10 mg PO BID 07/15/22 05:00 BMP - BASIC METABOLIC PANEL [CHEM] DAILYLAB CBC - COMP BLD CT W/AUTO DIFF [HEME] DAILYLAB 07/16/22 05:00 BMP - BASIC METABOLIC PANEL [CHEM] DAILYLAB CBC - COMP BLD CT W/AUTO DIFF [HEME] DAILYLAB 07/17/22 05:00 BMP - BASIC METABOLIC PANEL [CHEM] DAILYLAB CBC - COMP BLD CT W/AUTO DIFF [HEME] DAILYLAB 07/18/22 05:00 BMP - BASIC METABOLIC PANEL [CHEM] DAILYLAB CBC - COMP BLD CT W/AUTO DIFF [HEME] DAILYLAB Subjective - Subjective Patient Reports: Resting Comfortably, Pain (Complains of pain in the right knee mostly, slight pain and tenderness below that where he has the open wounds in the right lower leg. He admits he is incontinent of urine) Objective Vital Signs: Vital Signs - 24 hr 07/13/22 07/13/22 07/13/22 17:08 17:53 18:54 Temperature 37 C Heart Rate 107 H 119 H 101 H Heart Rate [ Brachial] Respiratory 24 32 H 25 H Rate Blood Pressure 94/71 104/78 108/70 Blood Pressure [Left Brachial artery] O2 Saturation 98 99 96 07/13/22 07/13/22 07/14/22 20:40 21:49 00:44 Temperature 36.5 C 36.4 C L Heart Rate 96 Heart Rate [ 94 92 Brachial] Respiratory 22 24 18 Rate Blood Pressure 105/84 H Blood Pressure 110/76 100/66 [Left Brachial artery] O2 Saturation 95 98 95 07/14/22 07/14/22 07/14/22 05:52 08:00 13:00 Temperature 36.3 C L 36.3 C L 36.5 C Heart Rate Heart Rate [ 83 93 95 Brachial] Respiratory 18 22 22 Rate Blood Pressure Blood Pressure 97/63 102/58 L 90/60 [Left Brachial artery] O2 Saturation 95 90 L 97 07/14/22 15:38 Temperature 36.2 C L Heart Rate Heart Rate [ 85 Brachial] Respiratory 21 Rate Blood Pressure Blood Pressure 94/58 L [Left Brachial artery] O2 Saturation 95 Oxygen O2 Source Room air I&O (Last 24 Hrs): Intake and Output Totals x24h 07/12/22 07/13/22 07/15/22 23:59 23:59 00:59 Intake Total 1700 2215 Balance 1700 2215 General: Alert, Oriented x3, Other (Disheveled) HEENT: Mucous membr. moist/pink, Other (CHENEGA) Neck: Supple, Other (Cannot evaluate JVP due to morbid obesity) Neuro: Alert, Other (He is moving all extremities spontaneously, sens exam was not done) Cardiovascular: No murmurs, Other (Stent heart sounds due to morbid obesity) Respiratory: No respiratory distress, Breath sounds nml Abdomen: Soft, Other (Obese with a large pannus. Purple-red skin in all folds of his core) Genitourinary: Testicular Mass, Discharge, Other (phymosis) Extremities: Other (2+ edema L leg, 1+ R leg. Multiple open ulcers of the right lower extremity, some are red and some are oozing yellow pus. Skin between these ulcers is red and hot and tender) - Results Results: Laboratory Results WBC 8.4 x10^3/uL (4.8-10.8) 07/14/22 04:41 RBC 3.55 10^6/uL (4.70-6.10) L 07/14/22 04:41 Hgb 10.2 g/dL (14.0-18.0) L 07/14/22 04:41 Hct 32.7 % (42.0-52.0) L 07/14/22 04:41 MCV 92.1 fL (80.0-94.0) 07/14/22 04:41 MCH 28.7 pg (27.0-31.0) 07/14/22 04:41 MCHC 31.2 g/dL (32.0-36.0) L 07/14/22 04:41 RDW 14.0 % (12.0-15.0) 07/14/22 04:41 Plt Count 212 10^3/uL (130-450) 07/14/22 04:41 MPV 11.2 fL (7.4-11.4) 07/14/22 04:41 Neut # (Auto) 6.5 10^3/uL (1.5-6.6) 07/14/22 04:41 Lymph # (Auto) 1.0 10^3/uL (1.5-3.5) L 07/14/22 04:41 [place] # (Auto) 0.6 10^3/uL (0.0-1.0) 07/14/22 04:41 Eos # (Auto) 0.2 10^3/uL (0.0-0.7) 07/14/22 04:41 Baso # (Auto) 0.0 10^3/uL (0.0-0.1) 07/14/22 04:41 Absolute Nucleated RBC 0.00 x10^3/uL 07/14/22 04:41 Nucleated RBC % 0.0 /100WBC 07/14/22 04:41 Sodium 140 mmol/L (135-145) 07/14/22 04:41 Potassium 4.5 mmol/L (3.5-5.0) 07/14/22 04:41 Chloride 107 mmol/L (101-111) 07/14/22 04:41 Carbon Dioxide 26 mmol/L (21-32) 07/14/22 04:41 Anion Gap 7.0 (6-13) 07/14/22 04:41 BUN 23 mg/dL (6-20) H 07/14/22 04:41 Creatinine 0.9 mg/dL (0.6-1.2) 07/14/22 04:41 Estimated GFR (MDRD) 81 (>89) L 07/14/22 04:41 Glucose 146 mg/dL (70-100) H 07/14/22 04:41 Lactic Acid 1.0 mmol/L (0.5-2.2) 07/13/22 17:35 Calcium 8.9 mg/dL (8.5-10.3) 07/14/22 04:41 Total Bilirubin 0.6 mg/dL (0.2-1.0) 07/13/22 17:35 AST 18 IU/L (10-42) 07/13/22 17:35 ALT 15 IU/L (10-60) 07/13/22 17:35 Alkaline Phosphatase 81 IU/L (42-121) 07/13/22 17:35 Total Protein 7.7 g/dL (6.7-8.2) 07/13/22 17:35 Albumin 2.3 g/dL (3.2-5.5) L 07/13/22 17:35 Globulin 5.4 g/dL (2.1-4.2) H 07/13/22 17:35 Albumin/Globulin Ratio 0.4 (1.0-2.2) L 07/13/22 17:35 - Procedures Procedures: Procedures INSERTION OF INFUSION DEV INTO SUP VENA CAVA, PERC APPROACH (02/07/18)
[2022-07-14] MEDS: SODIUM CHLORIDE FLUSH 0.9% 10 ML SYRINGE IVP PRN ×2 (16:59→18:22)
[2022-07-14] MEDS: ZINC OXIDE 20% OINT 30 GM TUBE TOP PRN (19:49)
[2022-07-14] MEDS: APIXABAN 5 MG TABLET PO SCH (21:36)
[2022-07-14] MEDS: INSULIN GLARGINE-YFGN 300 UNIT/3 ML PEN SUBQ SCH (21:37)
[2022-07-15] MEDS: HYDROcod/ACETAM 5/325 MG TABLET PO PRN ×2 (01:21→21:22)
[2022-07-15] MEDS: SODIUM CHLORIDE FLUSH 0.9% 10 ML SYRINGE IVP SCH ×3 (01:36→17:01)
[2022-07-15] MEDS: PIPERACILLIN/TAZOBACTAM 3.375 GM in SODIUM CHLORIDE 0.9% MINIBAG 100 ML IV SCH ×4 (01:36→22:25)
[2022-07-15] MEDS: ZINC OXIDE 20% OINT 30 GM TUBE TOP PRN ×4 (01:40→21:19)
[2022-07-15] MEDS: INSULIN LISPRO 300 UNIT/3 ML PEN SUBQ SCH ×4 (07:57→21:18)
[2022-07-15] MEDS: VANCOMYCIN INJ 1.5 GM in SODIUM CHLORIDE 0.9% 500 ML IV SCH ×2 (07:59→19:56)
[2022-07-15] MEDS: APIXABAN 5 MG TABLET PO SCH ×2 (08:06→21:18)
[2022-07-15 08:48] LABS: BASOPHILS % (AUTO) 0.4 %; EOSINOPHILS # (AUTO) 0.3 10^3/uL (0.0-0.7); EOSINOPHILS % (AUTO) 2.8 %; HCT - HEMATOCRIT 33.5 % (42.0-52.0); HGB - HEMOGLOBIN 10.3 g/dL (14.0-18.0); LYMPHOCYTES # (AUTO) 0.8 10^3/uL (1.5-3.5); MEAN CORPUSCULAR HGB CONC 30.7 g/dL (32.0-36.0); MEAN CORPUSCULAR VOLUME 94.4 fL (80.0-94.0); MEAN PLATELET VOLUME 9.2 fL (7.4-11.4); MONOCYTES # (AUTO) 0.6 10^3/uL (0.0-1.0); NEUTROPHILS # (AUTO) 7.2 10^3/uL (1.5-6.6); NEUTROPHILS % (AUTO) 79.4 %; PLT - PLATELET COUNT 279 10^3/uL (130-450); RED BLOOD COUNT 3.55 10^6/uL (4.70-6.10); RED CELL DISTRIBUTION WIDTH 14.2 % (12.0-15.0)
[2022-07-15 08:56] LABS: CALCIUM 8.6 mg/dL (8.5-10.3); POTASSIUM 3.6 mmol/L (3.5-5.0)
[2022-07-15] MEDS ORDERED: MORPHINE 2 MG/ML CARPUJECT IVP PRN (10:27)
--- NOTE | 2022-07-15 10:28 | PROVIDER PROGRESS NOTE ---
Assessment/Plan - Current Meds Current Meds: Current Medications Generic Name Dose Route Start Last Admin Trade Name Freq PRN Reason Stop Dose Admin Hydrocodone Bitart/Acetaminophen 1 tab 07/13/22 19:59 07/16/22 05:30 Hydrocod/Acetam 5/325 Mg Tablet PO 1 tab Q4HR PRN Administration Pain 5 to 7 Apixaban 10 mg 07/14/22 21:00 07/16/22 08:25 Apixaban 5 Mg Tablet PO 10 mg BID FARIDA Administration Cefazolin Sodium 1 gm/ Sodium 100 mls @ 200 mls/hr 07/16/22 12:30 07/16/22 13:41 Chloride IV 200 mls/hr Q8H FARIDA Administration Insulin Human Lispro 2 - 10 unit 07/13/22 21:00 07/16/22 13:33 Insulin Lispro 300 Unit/3 Ml Pen SUBQ Not Given 0800,1200,1700,2100 [facility] Protocol Multi-Ingredient Ointment 1 applic 07/14/22 17:54 07/16/22 01:45 Zinc Oxide 20% Oint 30 Gm Tube TOP 1 applic PRN PRN Administration Skin Care Multivitamins/Minerals 1 tab 07/16/22 08:00 07/16/22 08:25 Multivitamin W/Minerals Tablet PO 1 tab DAILYWM FAIRDA Administration Nystatin 1 applic 07/14/22 09:00 07/16/22 08:26 Nystatin Powder 15 Gm TOP 1 applic BID FARIDA Administration Sodium Chloride 10 ml 07/13/22 19:59 07/14/22 18:22 Sodium Chloride Flush 0.9% 10 Ml Syringe IVP 10 ml PRN PRN Administration NEEDED PER PROVIDER ORDERS Sodium Chloride 10 ml 07/14/22 01:00 07/16/22 08:26 Sodium Chloride Flush 0.9% 10 Ml Syringe IVP Not Given 0100,0900,1700 [facility] - Lab Result Fish Bone Diagrams: 07/16/22 09:13 07/16/22 09:13 - Additional Planning My Orders: My Active Orders 07/16/22 Evaluate and Treat PT [PT] Routine 07/16/22 12:30 ceFAZolin [Ancef] 1 gm Sodium Chloride 0.9% Minibag [Normal Saline 0.9% Minibag] 100 ml IV Q8H 07/16/22 13:00 metroNIDAZOLE 500 MG/100 ML [Flagyl 500 mg/100 ml] 500 mg in 100 ml IV Q8H 07/17/22 05:30 VANCOMYCIN TROUGH [CHEM] Timed <Jenae Salamanca - Last Filed: 07/16/22 14:59> - Problem List (1) Cellulitis of right leg Assessment/Plan: The right lower extremity has multiple open wounds in various stages of healing, some are draining, the surrounding skin is red and edematous and warm. He has had no fever, no elevated white blood count and no elevated lactic acid level, ruling out sepsis. Gen Surg consult yesterday by Dr Robin, said no surgery is indicated now, but advised reaching out to Wound Care here Plan: Await blood culture results and wound culture results that have been sent off Continue with empiric IV antibiotics, Zosyn and Vanco, in this Diabetic patient Today we will ask for a Wound clinic Consult (they were not avail yesterday, which was Sun). (2) Open wound of right lower leg Assessment/Plan: In addition to cellulitis of the R lower leg, there are multiple open and draining ulcer wound of the right lower extremity. He has had this chronically he says. Plan: Cont topical care, leg elevation, pain meds if needed Gen Surg consult yesterday by Dr Robin, said no surgery is indicated now, but advised reaching Wound Care here (3) Hypoglycemia Labs were all reviewed. This morning glu 63>> 69 after glucose>> 90 after more treatment This is very likely due to getting Insulin ordered as per med list reconciled by pharmacy, but we learned today that pt was only taking Insulin "if glu tested over 130" and he only checked fingerstick glu haphazardly. Then pharmacy learned this afternoon that he has not picked up any meds from his pharmac in over 2 years. Plan: Will stop all Lantus Insulin. Only use sliding scale Insulin, based on glu fingerstick checks. Pt will need Diabetic teaching. (4) Confusion He was a poor historian at admission. He was adamant he has never seen a Urologist, for example, despite an order for DI here, from Urologist at [facility], in 05/2021. We considered that his answer was from being a poor historian or possibly AMS related to sepsis or from his cellulitis infection worsening. Plan: Will ask [facility] and [facility] RN to reach out to ask the how he functions, or ask daughter who does help him in the home, he said, but the daughter only comes on weekends. (5) Right leg DVT The patient describes a longstanding history of right knee pain. Possibly this finding may be adding to the pain in his entire right leg. The pain was adding to his inability to get OOB (on a couch). The patient has been started on Lovenox at therapeutic dosing 1 mg/kg twice daily. Plan: Will change to oral Eliquis this evening at doses for DVT (10 mg twice daily for 7 days then the dose decreases). (6) Hydrocele, right There is a large pendulous mass in his right groin, in the area of his scrotum however it does not have external features of the scrotum since it is light pink and smooth. There is a very small hole in this, seen on photos, that is draining white pus. There is visible purulent drainage coming out of a small hole in this mass. There is no surrounding redness, warmth or tenderness however. A wound culture was sent off this a.m. He had imaging of the scrotum done with ultrasound in May 2021, this was ordered by the PA at [facility]. The ultrasound in 05/26 showed a R hydrocele, L epididymal cyst and possible scrotal cellulitis. The patient claims he has never seen a Urologist (was asked by me, Gen Surg DR Robin and Sheila, our [facility] RN). Gen Surg consult yesterday by Dr Robin, said no surgery is indicated now, but advised reaching Urology A new US imaging of scrotum was done yesterday 07/14 and this was read as a hydrocele. Today 07/15 I discussed that result with Dr Robin. Plan: Await results of wound culture of that drainage coming from the small hole Will try to reach Urology (7) New onset Aflutter Is adm EKG was interpreted by the machine as sinus rhythm, which is incorrect, I interpreted that as having Aflutter with variable block. Then an EKG was done today, to confirm rhythm and document in scanned EKGs, that he is in Aflutter. Plan: Will obtain Echo re: new onset Aflutter (was ordered yesterday, Dory, but we have no Echo service here until tomorrow ) (8) VTach The patient was placed on telemetry by the admitting telemedicine doctor because he was tachycardic, concern for sepsis. Telemetry showed an 8 beat run of monomorphic wide-complex tachycardia which is likely V. tach, rate 100, occurred 07/14 at 1601. RN checked the VS on the patient, which were normal and he was asymptomatic at that time His magnesium and potassium levels were checked and were adequate. Plan: We will obtain an Echocardiogram (no Echo service here until tomorrow ) Remain on telemetry (9) Noncompliance with medical regimen Evaluating his hypoglycemia today, pharmacist and his nurse asked him how much insulin he takes at home and he just entered with a confused look. The pharmacist found out that he has not filled any prescriptions of any kind for over 2 years. Possibly his confusion and being hard of hearing appear are part of the reason for his noncompliance Plan: We will stop the insulin, use only sliding scale for coverage. Pharmacy has again updated a reconciled med list today, showing no meds were being taken on a schedule at home, just before this admission (10) Chronic CHF, Unspecified I50.9 Patient carries a history of CHF. He is not on medications for systolic heart failure. The last Echo here, was done in 2018 and showed a preserved EF and probable diastolic heart failure Plan: We will obtain an Echocardiogram to establish the LV and RV function. Given his obesity, he may have right heart failure to explain some of the leg edema. (Echo was ordered yesterday, Sun, but we have no Echo service here until tomorrow ) (11) Weakness The patient admitted he has been on his couch and not walking for the last 3 months. He also described to Social Work that he only gets help from a family member on weekends when his daughter visits, as his apparently does not help him routinely, even though she lives with him. Plan: We will order PT and OT evaluation (12) DM 2 As per history. Plan: We will order a diabetic diet, hypoglycemia protocol, fingerstick checks to be covered with SS insulin Obtain A1c (13) HTN Plan: There were no meds being taken. Currently no HTN by VS (14) Morbid obesity BMI 40-45 This complicates his care (15) [place] As per physical exam - Current Meds Current Meds: Current Medications Generic Name Dose Route Start Last Admin Trade Name Freq PRN Reason Stop Dose Admin Hydrocodone Bitart/Acetaminophen 1 tab 07/13/22 19:59 07/15/22 01:21 Hydrocod/Acetam 5/325 Mg Tablet PO 1 tab Q4HR PRN Administration Pain 5 to 7 Apixaban 10 mg 07/14/22 21:00 07/15/22 08:06 Apixaban 5 Mg Tablet PO 10 mg BID FARIDA Administration Vancomycin HCl 1.5 gm/ Sodium 500 mls @ 250 mls/hr 07/14/22 08:00 07/15/22 10:15 Chloride IV Infused Q12H FARIDA Infusion Piperacillin Sod/Tazobactam 100 mls @ 25 mls/hr 07/14/22 13:30 07/15/22 07:57 Sod 3.375 gm/ Sodium Chloride IV 25 mls/hr Q6H FARIDA Administration Insulin Human Lispro 2 - 10 unit 07/13/22 21:00 07/15/22 07:57 Insulin Lispro 300 Unit/3 Ml Pen SUBQ Not Given 0800,1200,1700,2100 [facility] Protocol Multi-Ingredient Ointment 1 applic 07/14/22 17:54 07/15/22 01:40 Zinc Oxide 20% Oint 30 Gm Tube TOP 1 applic PRN PRN Administration Skin Care Nystatin 1 applic 07/14/22 09:00 07/14/22 19:50 Nystatin Powder 15 Gm TOP 1 applic BID FARIDA Administration Sodium Chloride 10 ml 07/13/22 19:59 07/14/22 18:22 Sodium Chloride Flush 0.9% 10 Ml Syringe IVP 10 ml PRN PRN Administration NEEDED PER PROVIDER ORDERS Sodium Chloride 10 ml 07/14/22 01:00 07/15/22 08:06 Sodium Chloride Flush 0.9% 10 Ml Syringe IVP 10 ml 0100,0900,1700 FARIDA Administration - Lab Result Fish Bone Diagrams: 07/16/22 09:13 07/16/22 09:13 - Additional Planning My Orders: My Active Orders 07/14/22 21:00 Apixaban [Eliquis] 10 mg PO BID 07/15/22 Wound Consult MAC [MAC] Routine 07/15/22 05:00 HEMOGLOBIN A1c% [CHEM] Routine 07/15/22 07:35 Miscellaenous Nursing Order [RC] ONCE 07/15/22 07:48 EKG - Electrocardiogram [RC] .ONCE 07/15/22 10:26 CUL,WOUND (AEROBIC) [RM] Stat 07/15/22 10:27 Morphine Inj (Carpuject) [Morphine (Carpuject)] 2 mg IVP Q4HR PRN 07/16/22 05:00 BMP - BASIC METABOLIC PANEL [CHEM] DAILYLAB CBC - COMP BLD CT W/AUTO DIFF [HEME] DAILYLAB 07/16/22 07:00 Echo Transthoracic w/Definity [ECHO] Routine 07/17/22 05:00 BMP - BASIC METABOLIC PANEL [CHEM] DAILYLAB CBC - COMP BLD CT W/AUTO DIFF [HEME] DAILYLAB 07/17/22 05:30 VANCOMYCIN TROUGH [CHEM] Timed 07/18/22 05:00 BMP - BASIC METABOLIC PANEL [CHEM] DAILYLAB CBC - COMP BLD CT W/AUTO DIFF [HEME] DAILYLAB <Briana Blunt - Last Filed: 07/16/22 19:06> Subjective - Subjective Patient Reports: Resting Comfortably, No Complaints Nursing Reports: Other (Repeat drainage seen from enlarged scrotum) <Briana Blunt - Last Filed: 07/16/22 19:06> Objective Vital Signs: Vital Signs - 24 hr 07/15/22 07/15/22 07/16/22 16:39 20:50 01:45 Temperature 36.7 C 36.3 C L 36.2 C L Heart Rate [ 99 96 84 Brachial] Respiratory 18 20 18 Rate Blood Pressure 93/61 [Left Brachial artery] Blood Pressure 94/61 101/64 [Right Brachial artery] O2 Saturation 92 93 96 07/16/22 07/16/22 07/16/22 05:00 07:17 11:30 Temperature 37.5 C 36.8 C 36.5 C Heart Rate [ 78 72 89 Brachial] Respiratory 18 20 20 Rate Blood Pressure [Left Brachial artery] Blood Pressure 101/61 108/74 111/70 [Right Brachial artery] O2 Saturation 97 95 95 Oxygen O2 Source Room air I&O (Last 24 Hrs): Intake and Output Totals x24h 07/14/22 07/15/22 07/16/22 23:59 23:59 23:59 Intake Total 2666 1782 Balance 2666 1782 - Results Results: Laboratory Results WBC 8.4 x10^3/uL (4.8-10.8) 07/16/22 09:13 RBC 3.25 10^6/uL (4.70-6.10) L 07/16/22 09:13 Hgb 9.4 g/dL (14.0-18.0) L 07/16/22 09:13 Hct 31.1 % (42.0-52.0) L 07/16/22 09:13 MCV 95.7 fL (80.0-94.0) H 07/16/22 09:13 MCH 28.9 pg (27.0-31.0) 07/16/22 09:13 MCHC 30.2 g/dL (32.0-36.0) L 07/16/22 09:13 RDW 14.3 % (12.0-15.0) 07/16/22 09:13 Plt Count 278 10^3/uL (130-450) 07/16/22 09:13 MPV 9.7 fL (7.4-11.4) 07/16/22 09:13 Neut # (Auto) 6.4 10^3/uL (1.5-6.6) 07/16/22 09:13 Lymph # (Auto) 1.0 10^3/uL (1.5-3.5) L 07/16/22 09:13 [place] # (Auto) 0.6 10^3/uL (0.0-1.0) 07/16/22 09:13 Eos # (Auto) 0.3 10^3/uL (0.0-0.7) 07/16/22 09:13 Baso # (Auto) 0.0 10^3/uL (0.0-0.1) 07/16/22 09:13 Absolute Nucleated RBC 0.00 x10^3/uL 07/16/22 09:13 Nucleated RBC % 0.0 /100WBC 07/16/22 09:13 Sodium 140 mmol/L (135-145) 07/16/22 09:13 Potassium 3.8 mmol/L (3.5-5.0) 07/16/22 09:13 Chloride 109 mmol/L (101-111) 07/16/22 09:13 Carbon Dioxide 23 mmol/L (21-32) 07/16/22 09:13 Anion Gap 8.0 (6-13) 07/16/22 09:13 BUN 18 mg/dL (6-20) 07/16/22 09:13 Creatinine 1.6 mg/dL (0.6-1.2) H 07/16/22 09:13 Estimated GFR (MDRD) 42 (>89) L 07/16/22 09:13 Glucose 121 mg/dL (70-100) H 07/16/22 09:13 POC Whole Bld Glucose 111 mg/dL (70 - 100) H 07/16/22 11:24 Estimat Average Glucose 183 mg/dL (70-100) H 07/15/22 08:43 Hemoglobin A1c % 8.0 % (4.27-6.07) H 07/15/22 08:43 Lactic Acid 1.0 mmol/L (0.5-2.2) 07/13/22 17:35 Calcium 8.4 mg/dL (8.5-10.3) L 07/16/22 09:13 Magnesium 1.8 mg/dL (1.7-2.8) 07/15/22 08:43 Total Bilirubin 0.6 mg/dL (0.2-1.0) 07/13/22 17:35 AST 18 IU/L (10-42) 07/13/22 17:35 ALT 15 IU/L (10-60) 07/13/22 17:35 Alkaline Phosphatase 81 IU/L (42-121) 07/13/22 17:35 Total Protein 7.7 g/dL (6.7-8.2) 07/13/22 17:35 Albumin 2.3 g/dL (3.2-5.5) L 07/13/22 17:35 Globulin 5.4 g/dL (2.1-4.2) H 07/13/22 17:35 Albumin/Globulin Ratio 0.4 (1.0-2.2) L 07/13/22 17:35 Vancomycin Trough 44.8 ug/mL (10.0-20.0) H* 07/16/22 09:13 - Procedures Procedures: Procedures INSERTION OF INFUSION DEV INTO SUP VENA CAVA, PERC APPROACH (02/07/18) <Jenae Salamanca L - Last Filed: 07/16/22 14:59> Vital Signs: Vital Signs - 24 hr 07/14/22 07/14/22 07/14/22 13:00 15:38 20:48 Temperature 36.5 C 36.2 C L 36.2 C L Heart Rate [ 95 85 87 Brachial] Respiratory 22 21 20 Rate Blood Pressure 90/60 94/58 L 91/58 L [Left Brachial artery] Blood Pressure [Right Brachial artery] O2 Saturation 97 95 94 07/15/22 07/15/22 07/15/22 01:08 04:49 07:45 Temperature 36.4 C L 36.4 C L 36.5 C Heart Rate [ 58 L 70 84 Brachial] Respiratory 20 20 22 Rate Blood Pressure 97/58 L [Left Brachial artery] Blood Pressure 94/66 104/68 [Right Brachial artery] O2 Saturation 95 94 93 Oxygen O2 Source Room air I&O (Last 24 Hrs): Intake and Output Totals x24h 07/13/22 07/14/22 07/15/22 22:59 23:59 23:59 Intake Total 1080 Balance 1080 General: Alert, No acute distress, Other (Morbidly obese, lying in bed with HOB elevated) HEENT: Atraumatic, PERRLA, Other (Disheveled) Neck: Supple, Other (Cannot eval JVP due to obesity) Neuro: Alert, Non Focal, Other (Generalized weakness, is [place], poor historian) Cardiovascular: Other (Distant heart sounds due to obesity) Respiratory: No respiratory distress Abdomen: Soft, Other (obese with pannus, redness in skin folds) Genitourinary: Other (Enlarged scroum, not red or warm or tender, has a pinhole on mandy-lateral side, daining white yellow fluid) - Results Results: Laboratory Results WBC 9.0 x10^3/uL (4.8-10.8) 07/15/22 08:43 RBC 3.55 10^6/uL (4.70-6.10) L 07/15/22 08:43 Hgb 10.3 g/dL (14.0-18.0) L 07/15/22 08:43 Hct 33.5 % (42.0-52.0) L 07/15/22 08:43 MCV 94.4 fL (80.0-94.0) H 07/15/22 08:43 MCH 29.0 pg (27.0-31.0) 07/15/22 08:43 MCHC 30.7 g/dL (32.0-36.0) L 07/15/22 08:43 RDW 14.2 % (12.0-15.0) 07/15/22 08:43 Plt Count 279 10^3/uL (130-450) 07/15/22 08:43 MPV 9.2 fL (7.4-11.4) 07/15/22 08:43 Neut # (Auto) 7.2 10^3/uL (1.5-6.6) H 07/15/22 08:43 Lymph # (Auto) 0.8 10^3/uL (1.5-3.5) L 07/15/22 08:43 [place] # (Auto) 0.6 10^3/uL (0.0-1.0) 07/15/22 08:43 Eos # (Auto) 0.3 10^3/uL (0.0-0.7) 07/15/22 08:43 Baso # (Auto) 0.0 10^3/uL (0.0-0.1) 07/15/22 08:43 Absolute Nucleated RBC 0.00 x10^3/uL 07/15/22 08:43 Nucleated RBC % 0.0 /100WBC 07/15/22 08:43 Sodium 141 mmol/L (135-145) 07/15/22 08:43 Potassium 3.6 mmol/L (3.5-5.0) 07/15/22 08:43 Chloride 109 mmol/L (101-111) 07/15/22 08:43 Carbon Dioxide 24 mmol/L (21-32) 07/15/22 08:43 Anion Gap 8.0 (6-13) 07/15/22 08:43 BUN 19 mg/dL (6-20) 07/15/22 08:43 Creatinine 1.0 mg/dL (0.6-1.2) 07/15/22 08:43 Estimated GFR (MDRD) 72 (>89) L 07/15/22 08:43 Glucose 96 mg/dL (70-100) 07/15/22 08:43 Lactic Acid 1.0 mmol/L (0.5-2.2) 07/13/22 17:35 Calcium 8.6 mg/dL (8.5-10.3) 07/15/22 08:43 Magnesium 1.8 mg/dL (1.7-2.8) 07/15/22 08:43 Total Bilirubin 0.6 mg/dL (0.2-1.0) 07/13/22 17:35 AST 18 IU/L (10-42) 07/13/22 17:35 ALT 15 IU/L (10-60) 07/13/22 17:35 Alkaline Phosphatase 81 IU/L (42-121) 07/13/22 17:35 Total Protein 7.7 g/dL (6.7-8.2) 07/13/22 17:35 Albumin 2.3 g/dL (3.2-5.5) L 07/13/22 17:35 Globulin 5.4 g/dL (2.1-4.2) H 07/13/22 17:35 Albumin/Globulin Ratio 0.4 (1.0-2.2) L 07/13/22 17:35 - Procedures Procedures: Procedures INSERTION OF INFUSION DEV INTO SUP VENA CAVA, PERC APPROACH (02/07/18) <Briana Blunt - Last Filed: 07/16/22 19:06>
--- NOTE | 2022-07-15 10:59 | PHARMACY PROGRESS NOTE ---
- Best Possible Medication History Admit Date and Time: 07/13/221999 Processed by: Pharmacy Medication History completed: Yes Patient Interview: Pt unable to participate Secondary Source(s): Pharmacy records (pt has been non compliant with all meds. Hasn't taken any since 09/2021) As the person ultimately responsible for medication therapy, providers are able to order a medication from an existing home medication list in [facility] via the "Reconcile Routine" prior to Confirmation of that medication by marketing support assistant. Such practice is discouraged except when the physician, in their clinical judgment, deems that a medical need exists for a medication without regard to previous use.
[2022-07-15 13:22] LABS: ESTIMATED AVERAGE GLUCOSE 183 mg/dL (70-100)
[2022-07-15] MEDS: NYSTATIN POWDER 15 GM TOP SCH ×2 (14:06→21:18)
[2022-07-15] MEDS ORDERED: PIPERACILLIN/TAZOBACTAM 3.375 GM in SODIUM CHLORIDE 0.9% MINIBAG 100 ML IV SCH (15:19)
[2022-07-15] MEDS ORDERED: VANCOMYCIN 1 GM VIAL ONE (19:44)
[2022-07-16] MEDS: SODIUM CHLORIDE FLUSH 0.9% 10 ML SYRINGE IVP SCH ×3 (01:45→16:39)
[2022-07-16] MEDS: ZINC OXIDE 20% OINT 30 GM TUBE TOP PRN ×2 (01:45→16:37)
[2022-07-16] MEDS: PIPERACILLIN/TAZOBACTAM 3.375 GM in SODIUM CHLORIDE 0.9% MINIBAG 100 ML IV SCH (05:30)
[2022-07-16] MEDS: HYDROcod/ACETAM 5/325 MG TABLET PO PRN ×2 (05:30→16:36)
[2022-07-16] MEDS: INSULIN LISPRO 300 UNIT/3 ML PEN SUBQ SCH ×4 (07:33→21:33)
[2022-07-16] MEDS ORDERED: MULTIVITAMIN W/MINERALS TABLET PO SCH (08:00)
[2022-07-16] MEDS: APIXABAN 5 MG TABLET PO SCH (08:25)
[2022-07-16] MEDS: NYSTATIN POWDER 15 GM TOP SCH ×2 (08:26→21:34)
[2022-07-16 09:17] LABS: BASOPHILS % (AUTO) 0.5 %; EOSINOPHILS # (AUTO) 0.3 10^3/uL (0.0-0.7); EOSINOPHILS % (AUTO) 3.5 %; HCT - HEMATOCRIT 31.1 % (42.0-52.0); HGB - HEMOGLOBIN 9.4 g/dL (14.0-18.0); LYMPHOCYTES % (AUTO) 11.9 %; MEAN CORPUSCULAR HEMOGLOBIN 28.9 pg (27.0-31.0); MEAN CORPUSCULAR HGB CONC 30.2 g/dL (32.0-36.0); MEAN CORPUSCULAR VOLUME 95.7 fL (80.0-94.0); MEAN PLATELET VOLUME 9.7 fL (7.4-11.4); MONOCYTES # (AUTO) 0.6 10^3/uL (0.0-1.0); MONOCYTES % (AUTO) 7.5 %; NEUTROPHILS # (AUTO) 6.4 10^3/uL (1.5-6.6); NEUTROPHILS % (AUTO) 76.2 %; PLT - PLATELET COUNT 278 10^3/uL (130-450); RED BLOOD COUNT 3.25 10^6/uL (4.70-6.10); RED CELL DISTRIBUTION WIDTH 14.3 % (12.0-15.0); WHITE BLOOD COUNT 8.4 x10^3/uL (4.8-10.8)
[2022-07-16 09:30] LABS: CALCIUM 8.4 mg/dL (8.5-10.3); CREATININE 1.6 mg/dL (0.6-1.2); POTASSIUM 3.8 mmol/L (3.5-5.0)
[2022-07-16 10:52] LABS: VANCOMYCIN,TROUGH 44.8 ug/mL (10.0-20.0)
[2022-07-16] MEDS: ceFAZolin 1 GM in SODIUM CHLORIDE 0.9% MINIBAG 100 ML IV SCH ×2 (13:41→20:35)
--- NOTE | 2022-07-16 15:05 | PROVIDER PROGRESS NOTE ---
Progress Note Assessment/Plan - Problem List (1) Cellulitis of right leg Assessment/Plan: The right lower extremity has multiple open wounds in various stages of healing, some are draining, the surrounding skin is red and edematous and warm. He has had no fever, no elevated white blood count and no elevated lactic acid level, ruling out sepsis Plan: Await blood culture results and wound culture results that have been sent off Continue with empiric IV antibiotics, Zosyn and Vanco, in this Diabetic patient We will obtain General Surgery consult for recommendations regarding wound care. Very likely general surgery will recommend that the wound clinic continue to manage this patient (Today is Friday and we have no MAC Wound provider available today) (2) Open wound of right lower leg Assessment/Plan: In addition to cellulitis there are multiple open and draining wounds of the right lower extremity. He has had this chronically he says. Plan: We will give topical care, leg elevation, pain meds if needed We will obtain general surgery consult for recommendations regarding wound care. Very likely general surgery will recommend that the wound clinic continue to manage this patient (Today is Friday and we have no MAC Wound provider available today) (3) Right leg DVT The patient describes a longstanding history of right knee pain. Possibly this finding may be adding to the pain in his mid right leg. The patient has been started on Lovenox at therapeutic dosing 1 mg/kg twice daily. Plan: Will change to oral Eliquis at doses for DVT (10 mg twice daily for 7 days then the dose decreases). (4) Groin mass There is a large pendulous mass in his right groin, in the area of his scrotum however it does not have external features of the scrotum since it is light pink and smooth. There is a hole, seen on photos, that was draining white pus In reviewing his [employer] chart which I did, it appears he had imaging of the scrotum done with ultrasound in May 2021, this was ordered by the PA at [facility] urology. The ultrasound then showed a R hydrocele, L epididymal cyst and possible scrotal cellulitis. The patient claims he has never seen a Urologist (was asked by me, Gen Surg DR Robin and Sheila, our [facility] RN). There is visible purulent drainage coming out of a small hole in this mass. There is no surrounding redness, warmth or tenderness however. Plan: We will also request input from general surgery regarding management going forward with this mass. We will order a wound culture of the drainage coming from the small hole Will obtain repeat imaging with ultrasound to define the contents of this mass (5) VTach The patient was placed on telemetry by the admitting telemedicine doctor because he was tachycardic, concern for sepsis. Telemetry showed an 8 beat run of monomorphic wide-complex tachycardia which is likely V. tach, rate 100, occurre at 1601. RN said the patient was asymptomatic at this time with a normal blood pressure Plan: We will check troponins, magnesium and potassium, replace if low. We will obtain an Echocardiogram Remain on telemetry (6) Chronic CHF, Unspecified I50.9 Patient carries a history of CHF. He is not on medications for systolic heart failure. The last Echo here, was done in 2018 and showed a preserved EF and probable diastolic heart failure Plan: We will obtain an Echocardiogram to establish the LV and RV function. Given his obesity, he may have right heart failure to explain some of the leg edema (7) Weakness The patient admitted he has been on his couch and not walking for the last 2-3 months. He also described to Social Work that he only gets help from a family member on weekends when his daughter visits, as his apparently does not help him routinely, even though she lives with him. Plan: We will order PT and OT evaluation (8) DM 2 As per history. Plan: We will order a diabetic diet, hypoglycemia protocol, fingerstick checks to be covered with SS insulin Obtain A1c (9) HTN Plan: We will resume his home meds when blood pressure will allow and when his med list is we can (10) Morbid obesity BMI 40-45 This complicates his care (11) [place] As per physical exam
--- NOTE | 2022-07-16 16:49 | WOUND CARE CONSULTATION ---
Referring Provider Name of Referring Provider:: Briana Blunt MD Consult Date: 07/16/22 Chief Complaint - Chief Complaint Chief Complaint: Non healing right leg wounds History of Present Illness - History Obtained From Records Reviewed: Yes History obtained from: Patient, chart Exam Limitations: Patient is poor historian - History of Present Illness HPI: 77 y old male with multiple medical comorbidities and psychosocial concerns. He was admitted due to right leg wounds complicated by cellulitis, SIRS/Severe sepsis, and extensive right leg DVT. He was BIBA due to complaints of generalized weakness, inability to care for himself, and worsening right leg wounds associated with redness, warmth, drainage, and edema since May 2022. Patient states he has not been able to get out of bed for last 2 months. He does not stand or ambulate due to imbalance. He wears incontinence briefs. He lives with his who apparently does not, or cannot, help him. His daughter is able to provide some care for him on the weekends. 07/13/22 wound specimen for Gram stain showed few WBCs, few GPC's. Culture grew 4+ MSSA. Blood cultures x 2 NG at 48 hours. He is being treated with IV vancomycin and Zosyn. His admission WBC was 11.2 and has decreased to 8.4 today. Patient is unable to tell me if his leg appears better or even if he feels better since admission. LE arterial studies on 07/13/22 showed heavy peripheral arterial calcification bilaterally. There was felt to be a likely hemodynamically insignificant mild focal stenosis in the left common femoral artery. Runoff to the right foot was not imaged due to the presence of bandages. Right lower extremity monophasic. Left lower extremity biphasic. He was started on anticoagulation for his DVT. He had previously been on Xarelto but stopped taking it due to financial stressors. Review of chart noted for HTN, DM2, HLP, mild diastolic dysfunction, moderate pulmonary hypertension, morbid obesity, large infrarenal AAA with intraluminal thrombus, right renal mass suspicious for malignancy, and right hydrocele. He has a significant past history of smoking (50+pk/yr) and currently vapes. He denies FCS, SOB. History - Past Medical History Cardiovascular: reports: Congestive heart failure, Hypertension, High cholesterol, Other Respiratory: reports: None Neuro: reports: None Endocrine/Autoimmune: reports: Type 2 diabetes GI: reports: None : reports: None HEENT: reports: None Psych: reports: None Musculoskeletal: reports: Osteoarthritis, Other Derm: reports: Other MRSA Hx?: No Other Past Medical History: Right knee chronic pain - Past Surgical History Ortho: reports: Other - Family & Social History Family History: Mother: , Father: Family History Comment/Other: No family history of coronary artery disease, stroke, diabetes or cancer. Social History Notes: The patient lives in [place], [place] with his of many years. . The patient has 3 children, 2 live in [place] and one lives in [place]. The patient is a retired [employer]. He is a smoker and currently vapes (50+pk/yr hx). The patient does not drink alcohol and denies any illicit drug use. - POLST Patient has POLST: No POLST Status: Full Code Objective Comments/Notes: Vitals (on hospital floor, 11:30 AM): T 36.5C, HR 89, RR 20, BP 111/70. O2 Sat 95% (room air). Constitutional: NAD. Alert and conversant. Easilly agitated. Respiratory: Normal respiratory effort. Cardiovascular: Regular rate. Musculoskeletal: Deconditioned. Weak LE bilaterally. No prior amputations. Lower Extremity Assessment: Extremity edema: L present. R present. Venous dermatitis: L present. R present. Hemosiderin deposition: L present. R present. Extremity hair growth: L absent. R absent. Capillary refill: L less than 3 seconds. R less than 3 seconds. Dependent rubor: L absent. R absent. ALINE: L: Noncompressible (consistent with medial arterial sclerosis). PVR waveform suggests adequate arterial perfusion. R: 0.94 normal. PVR waveform suggests adequate arterial perfusion. Impression: Arterial perfusion appears adequate for lower extremity compression therapy and spontaneous wound healing (in the absence of other problems). Labs: See HPI. Otherwise, albumin 2.3 L, Globulin 5.4 H. - Wound Assessment Wound #1 is a full-thickness venous insufficiency ulcer of the right lower extremity, circumferential, scattered (about 2.5% of the area is open wound). The entire area measures 31 x 42 x 0.1 cm (L x W x D). There is no tunneling, undermining, or sinus tract. There is light serosanguineous drainage noted which has no odor. The wound margin is attached. The wound bed has no epithelialization, no eschar, yes slough, yes red spongy granulation. The periwound skin texture is normal. The periwound skin moisture is macerated. The periwound skin temperature is mildly elevated. The periwound skin is erythematous, but appears improved compared to admission image reviewed in computer. Exposed structures: Adipose. Procedure - Procedure Note Wound #1: After informed consent was obtained, a selective debridement with a total area of 65.1 square centimeters was performed by Ulysses Bautista MD. Using a curette, dermis and epidermis were removed along with devitalized tissue: Biofilm, exudate, and slough. Pain control was achieved using lidocaine topical 5%. A timeout was conducted prior to the start of the procedure. A minimal amount of bleeding was controlled with pressure. The procedure was tolerated well. Postdebridement measurements: 31 x 42 x 0.1 cm (L x W x D) area of scattered open wounds. Conclusion and Plan - Problem List (1) Venous insufficiency (chronic) (peripheral) Assessment/Plan: RLE compression might be helpful, but I am reluctant to initiate in the setting of a DVT of unclear duration. I will review US images with radiology. If there are features that the DVT is chronic, will proceed with compression therapy. If the DVT appears more acute in nature, will wait 2 weeks for anticoagulation to optimize and then can proceed with compression therapy. I anticipate this is a chronic DVT which is more likely due to areas of incomplete occlusion on US. Encourage leg elevation and passive ankle exercises. Work with PT to improve strength and mobility. (2) Non-pressure chronic ulcer of right lower leg with fat layer exposed Assessment/Plan: Right venous insufficiency ulcers: Treatment plan incorporates (when appropriate): (1) Correction of etiologic factors, (2) Optimization of the local wound environment to promote healing by cleansing, debriding, managing bacterial balance, and managing moisture balance, (3) Treatment of infection, (4) Addressing host co-factors/co-morbidities that may affect healing, and (5) Consideration of advanced therapies such as application of cellular and/or tissue products/skin grafting. Periwound cleansed with Hibiclens. Wound cleansed with normal saline and Anasept. Wound dressed with silver alginate, rolled gauze, and netting. Educated regarding importance of blood glucose control to optimize healing and prevent complications of diabetes. Management per inpatient team. Goals: Balance moisture Resolve infection Disrupt, remove, and prevent reformation of biofilm. Remove necrotic/devitalized tissue Improve health of granulation tissue Minimize edema Improve mobility Manage co-morbidities Wound closure. Appropriate follow up instructions were given. Will see back in clinic in 3 days for dressing change and potentially initiation of LE compression therapy. (3) Cellulitis of right leg Assessment/Plan: Appears to be improving compared to image reviewed on day of admission. Leukocytosis on admission now normalized. Antibiotics per hospital team. No current e/o advancing infection. Patient afebrile and non-toxic. (4) Low serum albumin Assessment/Plan: Could be related to malnutrion. Hospital team could consider nutrition consult for evaluation and dietary recommendations to optimize wound healing. - Home Meds/Allergies Allergies No Known Drug Allergies Allergy (Verified 07/13/22 17:08) - Plan Condition/Complexity: Stable Plan Discussed with: Patient
--- NOTE | 2022-07-16 17:38 | Discharge Plan ---
Discharge Plan Problem Reviewed?: Yes Disposition: 02 Transfer Acute Care Hosp Condition: Fair No Smoking: If you smoke, Please STOP! Call for help. Follow-up with: ROBERT BEY PA-C [Primary Care Provider] -
--- NOTE | 2022-07-16 17:57 | DISCHARGE SUMMARY ---
"Discharge Summary Admit Date: 07/13/22 Discharge Date: 07/16/22 Discharging Provider: Jenae Salamanca MD Primary Care Provider: BERNARD Gonzalez (Urology) Code Status: Attempt Resuscitation Condition at Discharge: Fair Discharge Disposition: 02 Transfer Acute Care Hosp - DIAGNOSES Discharge Diagnoses with Status of Each Condition: 1. Cellulitis right leg 2. Open wound of right lower leg 3. Type 2 diabetes mellitus, uncontrolled, with hypoglycemia 4. Metabolic encephalopathy 5. Right leg DVT 6. Right hydrocele 7. Phimosis 8. Scrotal mass 9. New onset atrial flutter 10. Wide-complex tachycardia, nonsustained 11. Noncompliance with medical regimen 12. Chronic diastolic heart failure 13. Bedbound - HPI History of Present Illness: 77 y old male with PMH HTN, DM2, HLP, CHF, Morbid obesity, DVT , chronic right leg wounds, BIBA due to generalized weakness and right leg wound which are getting worse. As per pt, he is not able to get out of bed for last 2 months due to weakness. He used to take Xarelto but stopped taking it as he could not afford it. Denies fever, FAUSTIN, chest pain, SOB, Nausea, vomiting, diarrhea, constipation. On presentaion, Temp 37, tachycardia and hypotension. Labs showed leukocytosis. Lactic acid 1.0 As per ER physician, he did bed side venous doppler which showed non-occlusive DVT in right femoral vein. In ER, pt received NS 1L, IV Zosyn and lovenox sq Patient is being admitted due to cellulitis and wound in right leg, SIRS/Severe sepsis, and DVT History - Past Medical History Cardiovascular: reports: Congestive heart failure, Hypertension, High cholesterol, Other Respiratory: reports: None Neuro: reports: None Endocrine/Autoimmune: reports: Type 2 diabetes GI: reports: None : reports: None HEENT: reports: None Psych: reports: None Musculoskeletal: reports: Osteoarthritis, Other Derm: reports: Other MRSA Hx?: No - CONSULTS | PROCEDURES Procedures: Venous duplex with right leg DVT Duplex artery study of both legs with peripheral vascular disease, not significant Scrotal ultrasound with right hydrocele, no evidence of torsion, no abscesses identified Echocardiogram with normal LV size and systolic function, LVEF 55 to 60%. Mildly dilated RV size and systolic function. Moderate tricuspid regurg. Mild mitral regurg. - HOSPITAL COURSE Hospital Course: The patient states that he has been bedbound since April of last year because his knee hurts too badly. He just does not want to get up and be weightbearing. He has been told that he has osteoarthritis. He has not seen a provider in over 2 years. He did manage to see a urologist once, a female, and the encounter was so displeasing to him he never saw her again. He was seen for h ydrocele, and difficulty peeing. As he has been laying on the sofa, he will be incontinent of urine and stool. He either can get himself up to change his diaper, or he waits for his daughter. Daughter only comes about once a week and she will wash him down and wash the sofa down. He does live with his , but apparently they are not on speaking terms. When he does speak of his he uses disparaging adjectives and curse words. With this background, his weakness seem to be getting worse. It was more more difficult to get off the sofa. Decreased p.o. intake. Decreased appetite. His legs developed open wounds and they became weeping and red and painful. Which only compounded his inability to get off the sofa. His daughter was trying to clean the wounds and change dressings on the weekends. His finally could not take it anymore and called the ambulance and that is why he was brought to the hospital. He was started on Zosyn and vancomycin for lower extremity cellulitis. White cell count was 11.2 and came down to 8.4 this morning. Creatinine had been 0.9 in admission and was 1.6. Not clear if this is due to the Zosyn and vancomycin or the fact that he just cannot urinate. While he was seen for the cellulitis, he has Yady of the intertriginous folds, redness of lower abdominal wall where the Yady is. Upper anterior thighs. He has severe phimosis. The tip of his penis is completely obscured by foreskin which has folded over and scarred down. There is no urine coming out the tip of his penis. He is penis is shortened, and the entire shaft is bulbous and rounded in shape. There is a pinpoint hole at the base of the shaft as a goes to the perineum that is draining pus and urine. There is no redness. He says he has chronic pain of 8 out of a 10 for months now. There is some redness going toward the perineum with loss of soft tissue below the pinpoint hole. Cultures of his legs grew out MSSA, but cultures of the penile discharge done July 15 are growing gram- positive cocci and gram-positive bacilli but no identification.I switch him to Ancef today from the Zosyn and vancomycin. He had a short interval of wide-complex tachycardia this last weekend. Magnesium was normal with that as well as potassium. EKG confirmed no acute ST-T wave changes. Echocardiogram was done today before discharge and he had normal LV size and systolic function. Ejection fraction 55 to 60%. Mildly dilated RV size and systolic function. Moderate tricuspid regurg. Mild mitral regurg. RVSP at rest was 47 mmHg. He also had new onset atrial flutter atrial fibrillation. Heart rate has been controlled with this. No RVR. Swelling in the right leg was evaluated. He underwent arterial duplex as well as venous duplex. He has heavy peripheral arterial calcification bilaterally, mild focal stenosis in the left common femoral artery, not hemodynamically significant. The venous duplex showed partially occlusive to nearly occlusive thrombus th roughout the right lower extremity. He had been on Xarelto many years ago, not clear why. Probably a previous history of DVT. He stopped taking it months ago because it cost too much. He was started on apixaban here. Overall he was improving with regards to cellulitis, but when I came on service today I realized that the patient really cannot urinate thru that small pinpoint hole at the base of the penis shaft near the perineum. I called urology on-call at [facility] since Taryn Arthur was not in the office and spoke to Dr. Lozano. He recommended transfer but that I would have to speak to hospitalist. I then spoke to Dr. Cordoba who carefully reviewed the chart with me. He appropriately asked for CT of the abdomen, or retroperitoneal ultrasound since those were not ordered. He also asked for a heparin drip and stop the apixaban since the patient may have surgery tomorrow. Before transfer, the radiology was not able to be done but he was started on a heparin drip. I discharge this patient has a temperature of 36.5, heart rate 86, blood pressure 105/71, respirations 20, 96% on room air. He is a disheveled elderly gentleman with a low gruff voice. Personality is unpleasant at times. Shotty neck adenopathy. But no JVD or bruits. Lungs have coarse upper airway sounds with an occasional phlegmy cough that clears the phlegm temporarily. No respiratory distress. No increased respiratory effort with speaking to me or speaking fast rapid sentences. He has a regular rate and rhythm and spite of the A-flutter documented on telemetry. Systolic ejection murmur. Abdomen is soft, nontender, no real pain over the suprapubic area. Penis shaft is distende d and a globular way, with a draining at the base of the shaft going to the perineum and between the 2 testicles. Ultrasound has confirmed right hydrocele. Both legs have deep scaling to the skin that is yellow and brown. Underneath the scaling he has pink and red skin. Both legs have areas where the scaling has cracked and he has horizontal cracks in the skin. He has several ulcers. He is able to move both legs. He refused to work with physical therapy today because of pain in his legs, and PT felt that he would eventually need long-term facility with a front wheel walker to be able to walk, if he cooperated with PT. Greater than 30 minutes was spent coordinating discharge - ALLERGIES Allergies/Adverse Reactions: Allergies Allergy/AdvReac Type Severity Reaction Status Date / Time No Known Drug Allergies Allergy Verified 07/13/22 17:08 - LABS Result Diagrams: 07/16/22 18:17 07/16/22 09:13"
[2022-07-16 18:30] LABS: HGB - HEMOGLOBIN 9.5 g/dL (14.0-18.0); MEAN CORPUSCULAR HEMOGLOBIN 28.9 pg (27.0-31.0); MEAN CORPUSCULAR HGB CONC 30.6 g/dL (32.0-36.0); MEAN CORPUSCULAR VOLUME 94.2 fL (80.0-94.0); MEAN PLATELET VOLUME 9.2 fL (7.4-11.4); RED BLOOD COUNT 3.29 10^6/uL (4.70-6.10); RED CELL DISTRIBUTION WIDTH 14.4 % (12.0-15.0); WHITE BLOOD COUNT 9.5 x10^3/uL (4.8-10.8)
[2022-07-16] MEDS ORDERED: HEPARIN 25000UNITS/500ML (D5W) 25,000 UNIT/500 ML BAG IV SCH (19:00)
[2022-07-16 21:06] VITALS: BP 100/66
== END 2022-07-16 22:12 | disposition short-term general hospital (02) | DRG 871 ==
LOC: EDUNIT# → ED 16:46 → MS2 20:00
PROVIDERS: ADMIT Internal Medicine; ATTEND Specialist
PROC: 0HBKXZZ Excision of Right Lower Leg Skin, External Approach (ICD-10-PCS; principal; 2022-07-16)
DX: A41.9 Sepsis, unspecified organism (principal); A41.01 Sepsis due to Methicillin susceptible Staphylococcus aureus; G93.41 Metabolic encephalopathy; D64.9 Anemia, unspecified; L03.115 Cellulitis of right lower limb; E11.65 Type 2 diabetes mellitus with hyperglycemia; L97.918 Non-pressure chronic ulcer of unspecified part of right lower leg with other specified severity; I48.92 Unspecified atrial flutter; I50.9 Heart failure, unspecified; F17.200 Nicotine dependence, unspecified, uncomplicated; I50.32 Chronic diastolic (congestive) heart failure; Z68.42 Body mass index [BMI] 45.0-49.9, adult; I82.411 Acute embolism and thrombosis of right femoral vein; N28.0 Ischemia and infarction of kidney; R65.20 Severe sepsis without septic shock; E11.51 Type 2 diabetes mellitus with diabetic peripheral angiopathy without gangrene; E11.622 Type 2 diabetes mellitus with other skin ulcer; Z79.4 Long term (current) use of insulin; I87.2 Venous insufficiency (chronic) (peripheral); N47.1 Phimosis; N43.3 Hydrocele, unspecified; N50.9 Disorder of male genital organs, unspecified; R00.0 Tachycardia, unspecified; I11.0 Hypertensive heart disease with heart failure; Z74.01 Bed confinement status; E66.01 Morbid (severe) obesity due to excess calories; E78.00 Pure hypercholesterolemia, unspecified; N13.9 Obstructive and reflux uropathy, unspecified; R53.1 Weakness; T45.516A Underdosing of anticoagulants, initial encounter; Z91.120 Patient's intentional underdosing of medication regimen due to financial hardship; F17.290 Nicotine dependence, other tobacco product, uncomplicated; R32 Unspecified urinary incontinence; I71.43 Infrarenal abdominal aortic aneurysm, without rupture; N28.89 Other specified disorders of kidney and ureter; B37.2 Candidiasis of skin and nail; M25.561 Pain in right knee; I48.91 Unspecified atrial fibrillation
CPT/HCPCS: 36415; 76870; 80048; 80053; 80202; 83036; 83605; 83735; 85025; 85027; 85730; 87040; 87070; 87181; 87205; 93005; 93306; 93925; 93971; 96365; 96367; 96375; 97162; 99285; A9270; J1170; J1650; J1815; J3370

== ENCOUNTER 2022-08-19 10:56 | Outpatient (CLI) | payer MEDICARE, OTHER | END 2022-08-19 10:57 | disposition critical access hospital (66) | LOC: EMS 10:56 | DX: R30.9 Painful micturition, unspecified (principal); R39.89 Other symptoms and signs involving the genitourinary system; Z74.09 Other reduced mobility | CPT/HCPCS: A0425; A0429 ==

== ENCOUNTER 2022-08-19 11:08 | Emergency (ER) | payer MEDICARE, OTHER ==
[2022-08-19 11:22] VITALS: BP 103/77
[2022-08-19 12:40] LABS: BILIRUBIN,URINE NEGATIVE (NEGATIVE); GLUCOSE, URINE (UA) NEGATIVE (NEGATIVE); KETONES,URINE (UA) NEGATIVE (NEGATIVE); LEUKOCYTE ESTERASE, URINE MODERATE (NEGATIVE); NITRITE,URINE POSITIVE (NEGATIVE); OCCULT BLOOD,URINE SMALL (NEGATIVE); PH,URINE 8.5 PH (5.0-7.5); PROTEIN,URINE 100 mg/dL (NEGATIVE); UROBILINOGEN,URINE 0.2 (NORMAL) E.U./dL (NORMAL)
[2022-08-19 12:43] LABS: CLARITY,URINE CLOUDY (CLEAR)
[2022-08-19 12:44] LABS: BACTERIA,URINE Many /HPF (None Seen); RBC,URINE 0-5 /HPF (0-5); SQUAMOUS EPITHELIAL CELL,UR NONE SEEN (<= Few); WBC CLUMPS,URINE PRESENT
[2022-08-19 12:45] LABS: WBC,URINE >25 /HPF (0-3)
[2022-08-19] MEDS ORDERED: SULFAMETH/TRIMETH DS 800/160 MG TABLET PO STA (12:47)
--- NOTE | 2022-08-19 12:50 | ED Physician Documentation ---
History of Present Illness - Stated complaint Stated Complaint: DYSURIA - Chief complaint Chief Complaint: UTI - History obtained from History obtained from: Patient, EMS - Additonal information Additional information: The patient is brought to the emergency department by EMS for chief complaint of purulent discharge from his urethra. The patient states he has had a retracted penis since the and that he has seen a urologist and urologist told him as long as his urine is draining, there is nothing to be done. The patient states that He is no longer sexually active and has not had any STD exposure. He has had some dysuria recently but no hematuria. No fevers or chills. No nausea or vomiting. No abdominal pain. He lives at home and is cared for by his family. No other complaints at this time. PD PAST MEDICAL HISTORY - Past Medical History Past Medical History: Yes Cardiovascular: Congestive heart failure, Hypertension, High cholesterol, Other Respiratory: None Neuro: None Endocrine/Autoimmune: Type 2 diabetes GI: None : None HEENT: None Psych: None Musculoskeletal: Osteoarthritis, Other Derm: Other - Past Surgical History Past Surgical History: Yes Ortho: Other - Present Medications Home Medications: Ambulatory Orders Medication Instructions Recorded Confirmed Sulfamethox/Trimeth 800/160 1 each PO BID #14 tablet 08/19/22 [Bactrim Ds 800/160] - Allergies Allergies/Adverse Reactions: Allergies Allergy/AdvReac Type Severity Reaction Status Date / Time No Known Drug Allergies Allergy Verified 08/19/22 11:19 - Social History Does the pt smoke?: No Smoking Status: Never smoker Does the pt drink ETOH?: No Does the pt have substance abuse?: No - Immunizations Immunizations are current?: No Immunizations: TDAP >10years/unknown - POLST Patient has POLST: No POLST Status: Full Code PD ED PE NORMAL - Vitals Vital signs reviewed: Yes - General General: Alert and oriented X 3, No acute distress, Well developed/nourished - HEENT HEENT: Atraumatic, PERRL, EOMI, Moist mucous membranes - Neck Neck: Supple, no meningeal sign - Respiratory Respiratory: No respiratory distress - Abdomen Abdomen: Soft, Non tender, Other (Obese, mildly distended.) - Male Male : Other (Completely retracted penis With only scrotum visible and a very small meatus in the scrotum through which cloudy urine can be expressed. No erythema, edema, or induration.) - Derm Derm: Normal color, Warm and dry, No rash - Extremities Extremities: No deformity - Neuro Neuro: Alert and oriented X 3 - Psych Psych: Normal mood, Normal affect Results - Vitals Vitals: Vital Signs - 24 hr 08/19/22 11:19 Temperature 36.9 C Heart Rate 100 Respiratory 18 Rate Blood Pressure 103/77 O2 Saturation 98 Oxygen O2 Source Room air - Labs Labs: Laboratory Tests 08/19/22 12:30 Urine Color YELLOW Urine Clarity CLOUDY Urine pH 8.5 H Ur Specific [place] 1.010 Urine Protein 100 H Urine Glucose (UA) NEGATIVE Urine Ketones NEGATIVE Urine Occult Blood SMALL H Urine Nitrite POSITIVE H Urine Bilirubin NEGATIVE Urine Urobilinogen 0.2 (NORMAL) Ur Leukocyte Esterase MODERATE H Urine RBC 0-5 Urine WBC >25 H Urine WBC Clumps PRESENT Ur Squamous Epith Cells NONE SEEN Urine Bacteria Many H Ur Microscopic Review INDICATED Urine Culture Comments INDICATED PD Medical Decision Making - ED course Complexity details: reviewed results, re-evaluated patient, considered differential, d/w patient ED course: The patient was worked up with urinalysis, which had to be obtained by urine bag, as catheter was unable to be passed. This did come back positive for infection. The patient was started on Bactrim and a prescription was sent for the same. He was stable for discharge home and displayed no signs of complicated infection. We have discussed the usual indications for return Departure - Departure Disposition: 01 Home, Self Care Clinical Impression: Urinary tract infection Qualifiers: Urinary tract infection type: acute cystitis Hematuria presence: without hematuria Qualified Code(s): N30.00 - Acute cystitis without hematuria Condition: Stable Instructions: ED UTI Cystitis Male Prescriptions: Sulfamethox/Trimeth 800/160 [Bactrim Ds 800/160] 1 each PO BID #14 tablet Comments: Your urinalysis is positive for infection. You have been given first dose of antibiotics here in the emergency department, and a prescription for the same has been electronically transmitted to the [facility] pharmacy in [place]. Please pick it up today for next dose this evening. Please follow-up with your primary care physician as needed.
== END 2022-08-19 14:43 | disposition home or self-care (01) ==
LOC: EDUNIT# → ED 11:08
DX: N30.00 Acute cystitis without hematuria (principal); N48.83 Acquired buried penis; F03.90 Unspecified dementia, unspecified severity, without behavioral disturbance, psychotic disturbance, mood disturbance, and anxiety; R41.0 Disorientation, unspecified
CPT/HCPCS: 81001; 87077; 87086; 87181; 99283; A9270; 81003

== ENCOUNTER 2022-08-19 14:43 | Outpatient (CLI) | payer MEDICARE, OTHER | END 2022-08-19 14:44 | disposition home or self-care (01) | LOC: EMS 14:43 | PROVIDERS: ATTEND Emergency Medicine | DX: R41.0 Disorientation, unspecified (principal); Z74.01 Bed confinement status; N39.0 Urinary tract infection, site not specified; F03.90 Unspecified dementia, unspecified severity, without behavioral disturbance, psychotic disturbance, mood disturbance, and anxiety | CPT/HCPCS: A0425; A0428 ==

== ENCOUNTER 2023-06-16 18:53 | Outpatient (CLI) | payer MEDICARE, OTHER | END 2023-06-16 18:54 | disposition critical access hospital (66) | LOC: EMS 18:53 | DX: R41.82 Altered mental status, unspecified (principal); L89.329 Pressure ulcer of left buttock, unspecified stage; L89.319 Pressure ulcer of right buttock, unspecified stage; R23.4 Changes in skin texture; R32 Unspecified urinary incontinence; R39.89 Other symptoms and signs involving the genitourinary system; R15.9 Full incontinence of feces; Z74.8 Other problems related to care provider dependency; R00.0 Tachycardia, unspecified | CPT/HCPCS: A0425; A0429 ==

== ENCOUNTER 2023-06-16 19:10 | Emergency (ER) | payer MEDICARE, OTHER ==
--- NOTE | 2023-06-16 19:23 | ED Physician Documentation ---
History of Present Illness - Stated complaint Stated Complaint: AMS - History obtained from History obtained from: EMS - Additonal information Additional information: This is an 78-year-old gentleman who presents by ambulance. He is nonverbal and altered and as such all of the history is from EMS and that is limited as well because they state that he lives with his and there is some sort of language barrier there. He has a history of chronic leg wounds, type 2 diabetes, atrial flutter, tobacco abuse and bedbound status. Reportedly has not been moving for the last week and presents by ambulance quite altered, disheveled, covered in stool, moaning. There is no report of fever or trauma. PD PAST MEDICAL HISTORY - Past Medical History Cardiovascular: Congestive heart failure, Hypertension, High cholesterol, Other Respiratory: None Neuro: None Endocrine/Autoimmune: Type 2 diabetes GI: None : None HEENT: None Psych: None Musculoskeletal: Osteoarthritis, Other Derm: Other - Past Surgical History Past Surgical History: Yes Ortho: Other - Present Medications Home Medications: Ambulatory Orders Medication Instructions Recorded Confirmed Sulfamethox/Trimeth 800/160 1 each PO BID #14 tablet 08/19/22 [Bactrim Ds 800/160] - Allergies Allergies/Adverse Reactions: Allergies Allergy/AdvReac Type Severity Reaction Status Date / Time No Known Drug Allergies Allergy Verified 08/19/22 11:19 - Social History Does the pt smoke?: No Smoking Status: Never smoker Does the pt drink ETOH?: No Does the pt have substance abuse?: No - Immunizations Immunizations are current?: No Immunizations: TDAP >10years/unknown - POLST Patient has POLST: No POLST Status: Full Code PD ED PE NORMAL - Vitals Vital signs reviewed: Yes - General General: Other (He is moaning, eyes open and responsive but not following commands and completely nonverbal and not even oriented to self. He is disheveled, covered in stool, and poorly kempt.) - HEENT HEENT: PERRL - Neck Neck: Supple, no meningeal sign, No bony TTP - Cardiac Cardiac: RRR, No murmur - Respiratory Respiratory: No respiratory distress, Clear bilaterally - Abdomen Abdomen: Other (There is a tender anterior mass, question incarcerated ventral hernia) - Male Male : Other (He has a very small urethral meatus and its actually hard to tell where the head of the penis is. The scrotal skin is discolored, tender, and leaking pus in multiple areas. We are unable to place a Riddle.) - Derm Derm: Other (He is covered in stool and has discolorations with yeast rash and poor perfusion from basically the waist down.) - Extremities Extremities: Other (He has chronic appearing wounds to both lower legs. No obvious active infection. He has a serial yeast infection in the groin. He does have dopplerable pedal pulses in both feet.) - Neuro Eye Opening: Spontaneous Motor: Localizes to Pain Verbal: Incomprehensible GCS Score: 11 Results - Vitals Vitals: Vital Signs - 24 hr 06/16/23 06/16/23 06/16/23 19:38 20:00 20:30 Temperature 36.7 C Heart Rate 138 H 129 H 115 H Respiratory 23 30 H 32 H Rate Blood Pressure 90/49 L 110/75 122/87 H O2 Saturation 94 93 92 06/16/23 06/16/23 21:00 21:30 Temperature Heart Rate 116 H 115 H Respiratory 28 H 32 H Rate Blood Pressure 129/113 H 145/87 H O2 Saturation 93 92 Oxygen O2 Source Room air - EKG (time done) 1940 EKG releavant findings:: EKG personally interpreted by author of this note. Relevant findings are: Rate: Rate (enter#) (115) Rhythm: Sinus tachycardia Intervals: Normal PA QRS: Low voltage Ischemia: Non specific changes - Labs Labs: Laboratory Tests 06/16/23 06/16/23 06/16/23 20:26 20:26 20:26 WBC 14.7 H RBC 4.48 L Hgb 12.7 L Hct 40.0 L MCV 89.3 MCH 28.3 MCHC 31.8 L RDW 16.3 H Plt Count 279 MPV 9.9 Neut # (Auto) 13.3 H Lymph # (Auto) 0.3 L Childress # (Auto) 0.8 Eos # (Auto) 0.2 Baso # (Auto) 0.0 Absolute Nucleated RBC 0.00 Nucleated RBC % 0.0 PT 14.5 H INR 1.4 H VBG pH VBG pCO2 VBG pO2 VBG HCO3 VBG Total CO2 VBG O2 Saturation VBG Base Excess Sodium 137 Potassium 6.1 H* Chloride 104 Carbon Dioxide 20 L Anion Gap 13.0 BUN 115 H* Creatinine 6.4 H Estimated GFR (MDRD) 8 L Glucose 264 H POC Whole Bld Glucose Lactic Acid Calcium 9.7 Phosphorus 4.6 Magnesium 1.9 Total Bilirubin 0.5 AST 17 ALT 11 Alkaline Phosphatase 86 Total Creatine Kinase 61 Troponin I High Sens Total Protein 7.2 Albumin 2.9 L Globulin 4.3 H Albumin/Globulin Ratio 0.7 L Nasal Adenovirus (PCR) Nasal B. parapertussis DNA (PCR) Nasal Coronavir 229E PCR Nasal Coronavir HKU1 PCR Nasal Coronavir NL63 PCR Nasal Coronavir OC43 PCR Nasal Enterovir/Rhinovir PCR Nasal Influenza B PCR Nasal Influenza A PCR Nasal Parainfluen 1 PCR Nasal Parainfluen 2 PCR Nasal Parainfluen 3 PCR Nasal Parainfluen 4 PCR Nasal RSV (PCR) Nasal B.pertussis DNA PCR Nasal C.pneumoniae (PCR) Nick Human Metapneumo PCR Nasal M.pneumoniae (PCR) Nasal SARS-CoV-2 (PCR) Ethyl Alcohol < 10.0 06/16/23 06/16/23 06/16/23 20:26 20:26 20:26 WBC RBC Hgb Hct MCV MCH MCHC RDW Plt Count MPV Neut # (Auto) Lymph # (Auto) Childress # (Auto) Eos # (Auto) Baso # (Auto) Absolute Nucleated RBC Nucleated RBC % PT INR VBG pH 7.377 VBG pCO2 35.8 L VBG pO2 40.5 VBG HCO3 20.6 L VBG Total CO2 21.7 L VBG O2 Saturation 70.5 VBG Base Excess -3.9 L Sodium Potassium Chloride Carbon Dioxide Anion Gap BUN Creatinine Estimated GFR (MDRD) Glucose POC Whole Bld Glucose Lactic Acid 2.1 Calcium Phosphorus Magnesium Total Bilirubin AST ALT Alkaline Phosphatase Total Creatine Kinase Troponin I High Sens 93.5 H* Total Protein Albumin Globulin Albumin/Globulin Ratio Nasal Adenovirus (PCR) Nasal B. parapertussis DNA (PCR) Nasal Coronavir 229E PCR Nasal Coronavir HKU1 PCR Nasal Coronavir NL63 PCR Nasal Coronavir OC43 PCR Nasal Enterovir/Rhinovir PCR Nasal Influenza B PCR Nasal Influenza A PCR Nasal Parainfluen 1 PCR Nasal Parainfluen 2 PCR Nasal Parainfluen 3 PCR Nasal Parainfluen 4 PCR Nasal RSV (PCR) Nasal B.pertussis DNA PCR Nasal C.pneumoniae (PCR) Nick Human Metapneumo PCR Nasal M.pneumoniae (PCR) Nasal SARS-CoV-2 (PCR) Ethyl Alcohol 06/16/23 06/16/23 22:24 23:29 WBC RBC Hgb Hct MCV MCH MCHC RDW Plt Count MPV Neut # (Auto) Lymph # (Auto) Childress # (Auto) Eos # (Auto) Baso # (Auto) Absolute Nucleated RBC Nucleated RBC % PT INR VBG pH VBG pCO2 VBG pO2 VBG HCO3 VBG Total CO2 VBG O2 Saturation VBG Base Excess Sodium Potassium Chloride Carbon Dioxide Anion Gap BUN Creatinine Estimated GFR (MDRD) Glucose POC Whole Bld Glucose 214 H Lactic Acid Calcium Phosphorus Magnesium Total Bilirubin AST ALT Alkaline Phosphatase Total Creatine Kinase Troponin I High Sens Total Protein Albumin Globulin Albumin/Globulin Ratio Nasal Adenovirus (PCR) NOT DETECTED Nasal B. parapertussis DNA (PCR) NOT DETECTED Nasal Coronavir 229E PCR NOT DETECTED Nasal Coronavir HKU1 PCR NOT DETECTED Nasal Coronavir NL63 PCR NOT DETECTED Nasal Coronavir OC43 PCR NOT DETECTED Nasal Enterovir/Rhinovir PCR NOT DETECTED Nasal Influenza B PCR NOT DETECTED Nasal Influenza A PCR NOT DETECTED Nasal Parainfluen 1 PCR NOT DETECTED Nasal Parainfluen 2 PCR NOT DETECTED Nasal Parainfluen 3 PCR NOT DETECTED Nasal Parainfluen 4 PCR NOT DETECTED Nasal RSV (PCR) NOT DETECTED Nasal B.pertussis DNA PCR NOT DETECTED Nasal C.pneumoniae (PCR) NOT DETECTED Nick Human Metapneumo PCR NOT DETECTED Nasal M.pneumoniae (PCR) NOT DETECTED Nasal SARS-CoV-2 (PCR) NOT DETECTED Ethyl Alcohol Procedures - Central Line - Major Central Line Preparation: Unable to obtain consent, Time out completed, Ultrasound used, Sterile prep and drape Central line location: Right IJ Central line type: Triple lumen Central line aftercare: Chlorhexidine disc placed, Secured, Bundle checklist complete, Pt tolerated well PD Medical Decision Making - ED course ED course: 78-year-old gentleman with the above comorbidities presents altered, reportedly has not been moving for the last week and is covered in stool and disheveled. He is quite encephalopathic, and care was delayed as there is no prehospital IV, and the nurse had difficulty placing 1. Subsequently we were able to get a small IV which did not draw blood and he was anxious and gave him some Ativan and then was able to place a central line. His blood pressure was 90/49 with a heart rate of 138 consistent with shock and he was administered "sepsis fluids" with a total of greater than 30 mL/kg of crystalloid. Also broad-spectrum antibiotics with cefepime, Flagyl, and vancomycin. Chest x-ray was grossly clear, with a possible left basilar atelectasis, but no clear pneumonia and no evidence of CHF. Initial lab work was notable for a CBC with mild anemia and a white count of 14, he is mildly coagulopathic with an INR of 1.4, venous blood gas was relatively unremarkable, chemistries were notable for significant prerenal azotemia with renal failure and moderate hyperkalemia, lactate was normal, troponin is elevated. 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 Clearly IV contrast is not in order given his renal function. My initial "wet read" of his CT demonstrates a mass on the left kidney, bilateral hydronephrosis, and a very dilated bladder. There is also a AAA that does not appear to have signs of rupture, and he has stranding around the left greater than right kidney with nephroliths on the right greater than left side. There are also some small spots of air in the groin that could be concerning for Eleni's gangrene. I spoke with our on-call urologist, Dr. Lara by phone who will come in and see the patient and potentially place a suprapubic catheter. Would also like his opinion as to the possibility of Eleni's in which case he would probably need to be transferred to a higher level of care. He probably needs to be transferred to high-level care anyways given the renal function and lack of nephrology consultation here. I spoke with his daughter, Magdalena by phone, she is available at [phone]. She is the first point of contact and states she has POA. She states that he had been told that he probably had kidney cancer but did not want it treated because of his poor quality of life. That said right now her understanding is that he is full code and would want things like surgery or suprapubic catheter. She states that she has had some goals of care discussion with her father who does not want to talk about it with his nor the other sister. I did discuss the gravity of his current condition and critical illness with her, and also recommended that she have some zohaib conversations with her family regarding goals of care as difficult decisions may be needed in the short-term. Seen by Dr. 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 [facility] called shortly thereafter for possible transport for NSTI. Care to overnight EDMD ~1015pm pm - Critical Care Time(min): 65 Time Includes: Direct patient care, Review records, Reassess patient, Document care, Coordinate care, Medical consult, Family consult for tx dec, See progress note Data interpretation: Labs, Pulse ox Procedures included in critical care time: Peripheral IV Departure - Departure Disposition: 02 Transfer Acute Care Hosp Clinical Impression: Septic shock, Encephalopathy, Eleni gangrene Acute renal failure Qualifiers: Acute renal failure type: unspecified Qualified Code(s): N17.9 - Acute kidney failure, unspecified Condition: Critical
[2023-06-16] MEDS ORDERED: NYSTATIN POWDER 15 GM TOP STA (19:39)
[2023-06-16] MEDS: SODIUM CHLORIDE 0.9% 1,000 ML IV STA (19:50)
[2023-06-16] MEDS ORDERED: LORazepam 2 MG/ML VIAL ONE (20:05)
[2023-06-16] MEDS: LORazepam 2 MG/ML VIAL IVP STA (20:15)
--- NOTE | 2023-06-16 20:21 | XRAY Report ---
PROCEDURE: Chest 1V INDICATIONS: ams TECHNIQUE: One view of the chest was acquired. COMPARISON: 02/08/2018 FINDINGS: Surgical changes and devices: None. Lungs and pleura: No pleural effusions or pneumothorax. Streaky left basilar opacities likely repres enting atelectasis. No focal consolidation. Right lung appears clear Mediastinum: Accounting for patient positioning and rotation, cardiomediastinal contours are within normal limits. Mild cardiomegaly. Bones and chest wall: No suspicious bony lesions. Overlying soft tissues appear unremarkable. IMPRESSION: Mild streaky left basilar opacities favored to represent atelectasis. Mild cardiomegaly. Reviewed by: Etienne Guzman MD on 06/16/2023 8:20 PM PST Approved by: Etienne Guzman MD on 06/16/2023 8:20 PM PST Station ID: [id number]
[2023-06-16] MEDS: LACTATED RINGERS 1,000 ML IV ONE ×2 (20:30)
[2023-06-16 20:37] LABS: BASOPHILS % (AUTO) 0.3 %; EOSINOPHILS # (AUTO) 0.2 10^3/uL (0.0-0.7); EOSINOPHILS % (AUTO) 1.6 %; HGB - HEMOGLOBIN 12.7 g/dL (14.0-18.0); LYMPHOCYTES # (AUTO) 0.3 10^3/uL (1.5-3.5); LYMPHOCYTES % (AUTO) 1.7 %; MEAN CORPUSCULAR HEMOGLOBIN 28.3 pg (27.0-31.0); MEAN CORPUSCULAR HGB CONC 31.8 g/dL (32.0-36.0); MEAN CORPUSCULAR VOLUME 89.3 fL (80.0-94.0); MEAN PLATELET VOLUME 9.9 fL (7.4-11.4); MONOCYTES # (AUTO) 0.8 10^3/uL (0.0-1.0); MONOCYTES % (AUTO) 5.3 %; NEUTROPHILS # (AUTO) 13.3 10^3/uL (1.5-6.6); NEUTROPHILS % (AUTO) 90.4 %; PLT - PLATELET COUNT 279 10^3/uL (130-450); RED BLOOD COUNT 4.48 10^6/uL (4.70-6.10); RED CELL DISTRIBUTION WIDTH 16.3 % (12.0-15.0); WHITE BLOOD COUNT 14.7 x10^3/uL (4.8-10.8)
[2023-06-16 20:43] LABS: VBG BASE EXCESS -3.9 mmol/L (-2 - +2); VBG HCO3 20.6 mmol/L (23-28); VBG OXYGEN SATURATION 70.5 % (60-80); VBG PCO2 35.8 mmHg (41-51); VBG PH 7.377 (7.31-7.41); VBG PO2 40.5 mmHg (25-47); VBG TOTAL CO2 21.7 mmol/L (24-29)
[2023-06-16 20:52] LABS: CK- CREATINE KINASE 61 IU/L (30-223); ETOH - ETHANOL < 10.0 mg/dL; MAGNESIUM 1.9 mg/dL (1.7-2.3); PHOSPHORUS 4.6 mg/dL (2.5-5.0)
[2023-06-16 20:53] LABS: INR 1.4 (0.8-1.2); PT - PROTHROMBIN TIME 14.5 secs (9.9-12.6)
[2023-06-16] MEDS ORDERED: VANCOMYCIN 1 GM VIAL ONE (21:01)
[2023-06-16 21:06] LABS: ALBUMIN 2.9 g/dL (3.2-5.5); ALBUMIN/GLOBULIN RATIO 0.7 (1.0-2.2); ALKALINE PHOSPHATASE 86 IU/L (42-121); ALT ALANINE AMINOTRANSFERASE 11 IU/L (10-60); AST ASPARTATE AMINOTRANSFERASE 17 IU/L (10-42); BILIRUBIN,TOTAL 0.5 mg/dL (0.2-1.0); BUN - BLOOD UREA NITROGEN 115 mg/dL (6-20); CALCIUM 9.7 mg/dL (8.5-10.3); CARBON DIOXIDE - CO2 20 mmol/L (21-32); CHLORIDE 104 mmol/L (101-111); CREATININE 6.4 mg/dL (0.6-1.3); GFR - MDRD 8 (>89); GLUCOSE 264 mg/dL (74-104); POTASSIUM 6.1 mmol/L (3.5-4.5); SODIUM 137 mmol/L (135-145); TOTAL PROTEIN 7.2 g/dL (6.4-8.9)
[2023-06-16] MEDS: CEFEPIME 2 GM in SODIUM CHLORIDE 0.9% MINIBAG 100 ML IV STA (21:18)
[2023-06-16] MEDS: VANCOMYCIN INJ 1.75 GM in SODIUM CHLORIDE 0.9% 500 ML IV STA (21:18)
[2023-06-16] MEDS: metroNIDAZOLE 500 MG/100 ML 500 MG/100 ML BAG IV STA (21:51)
[2023-06-16] MEDS ORDERED: lidocaine 1% 20 ML MDV SUBQ ONE (22:35)
--- NOTE | 2023-06-16 22:38 | ED Physician Documentation ---
ED Addendum - Addendum Addendum: Patient received in signout from Dr. Baugh. Patient arrived critically ill. On exam has concerns for Eleni's gangrene. CT read is pending. Would be urologist has been consulted as patient has a significant phimosis and we are unable to pass a catheter. However he is also noted to have acute renal failure And hyperkalemia.Has been given a significant amount of fluids which have improved his heart rate and blood pressure.He has also received antibiotics with cefepime, Flagyl, vancomycin in addition to clindamycin. 06/16/23 22:32 - Patient received in signout at shift change. Clinical concern for Eleni's gangrene. Discussed with [facility] transfer center RN. She will reach out to the urology team. Dr. Lara and is here also evaluating the patient and graciously is assisting in attempting to place a suprapubic catheter. 06/16/23 22:45 - D/W Dr. Perales ([facility]) - Graciously accepts the patient in transfer to the [facility] ER. 06/16/23 23:15 Dr. Lara was unable to place a suprapubic catheter given the limited equipment we have available. Transport team is here to so elected to hold on further attempts as to not delay transfer. CT head IMPRESSION: Quality of exam is degraded by motion artifact. Within this limitation no acute intracranial process identified. CT abdomen pelvis IMPRESSION: Nonobstructing right renal calculi measuring up to 7 mm. Mild bilateral hydroureteronephrosis and perinephric stranding of uncertain etiology, possibly related to recent obstruction in the setting of intraluminal bladder calculi. Peroneal soft tissue thickening with a few foci of gas may reflect Eleni gangrene. No rim- enhancing fluid collection to suggest abscess. Recommend correlation with physical exam. Circumferential rectal wall thickening may reflect proctitis. Departure - Departure Disposition: 02 Transfer Acute Care Hosp Clinical Impression: Septic shock, Encephalopathy, Eleni gangrene, Hyperkalemia, Urinary retention Acute renal failure Qualifiers: Acute renal failure type: unspecified Qualified Code(s): N17.9 - Acute kidney failure, unspecified Condition: Critical Forms: PCP List Discharge Date/Time: 06/16/23 23:45
[2023-06-16] MEDS: CLINDAMYCIN 600 MG/50 ML 50 ML IV ONE ×2 (22:40)
--- NOTE | 2023-06-16 22:47 | XRAY Report ---
PROCEDURE: Chest for Line Placement INDICATIONS: RIJ CVC TECHNIQUE: One view of the chest was acquired. COMPARISON: Chest radiograph 06/16/2023 at 7:30 PM. FINDINGS: Surgical changes and devices: Interval placement of right internal jugular central venous catheter w ith distal tip projecting over the inferior right atrium.. Lungs and pleura: No pleural effusions or pneumothorax. Left basilar streaky opacity, probably atele ctasis. Mediastinum: Mediastinal contours appear normal. Heart size is mildly enlarged, as before. Bones and chest wall: No suspicious bony lesions. Overlying soft tissues appear unremarkable. IMPRESSION: Interval placement of right internal jugular central venous catheter with distal tip projecting over the inferior right atrium. No other signal interval change since prior radiograph at 7:30 PM. Reviewed by: Blanca Eagle MD on 06/16/2023 10:46 PM PST Approved by: Blanca Eagle MD on 06/16/2023 10:46 PM PST Station ID: [id number]
[2023-06-16 23:20] LABS: B. PARAPERTUSSIS- RESP PCR PAN NOT DETECTED; B. PERTUSSIS- RESP PCR PANEL NOT DETECTED; C. PNEUMONIAE- RESP PCR PANEL NOT DETECTED; CORONAVIRUS 229E-RESP PCR NOT DETECTED; CORONAVIRUS HKU1-RESP PCR NOT DETECTED; CORONAVIRUS NL63-RESP PCR NOT DETECTED; CORONAVIRUS OC43-RESP PCR NOT DETECTED; HUMAN METAPNEUMOVIRUS NOT DETECTED; INFLUENZA A- RESP PCR PANEL NOT DETECTED; INFLUENZA B - RESP PCR PANEL NOT DETECTED; M. PNEUMONIAE- RESP PCR PANEL NOT DETECTED; PARAINFLUENZA VIRUS 1 NOT DETECTED; PARAINFLUENZA VIRUS 2 NOT DETECTED; PARAINFLUENZA VIRUS 3 NOT DETECTED; PARAINFLUENZA VIRUS 4 NOT DETECTED; RHINOVIRUS/ENTEROVIRUS NOT DETECTED; RSV- RESP PCR PANEL NOT DETECTED; SARS-CoV-2 -RESP PCR PANEL NOT DETECTED
--- NOTE | 2023-06-16 23:37 | CT Report ---
PROCEDURE: Abdomen/Pelvis WO INDICATIONS: Abd pain, ARF, AMS, go through scrotum, ?fourniers TECHNIQUE: A CT scan of the abdomen and pelvis was performed without the use of intravenous contrast. Images we re recorded and evaluated at appropriate window settings. Reformats: coronal and sagittal. For radiat ion dose reduction, the following was used: automated exposure control, adjustment of mA and/or kV ac cording to patient size. COMPARISON: CT abdomen pelvis 04/05/2021. FINDINGS: Image quality: Diagnostic. Lower chest: Small left pleural effusion with subjacent atelectasis.. Liver: No contour-deforming mass. Gallbladder and biliary tree: No radiopaque stones or wall thickening. No biliary dilation. Spleen: No splenomegaly. Pancreas: No pancreatic ductal dilation. Adrenals: Stable left adrenal nodule. Kidneys and ureters: Nonobstructing right renal calculi measuring up to 7 mm in the inferior pole (78 2). Left simple cyst. Mild bilateral hydroureteronephrosis and perinephric stranding. No renal cystic lesion which requires follow up. No solid mass. Stomach, bowel and peritoneum: No bowel distension. No pathologic free fluid. Lymph nodes: No central or retroperitoneal adenopathy. Vessels: No infrarenal aortic aneurysm. PELVIS Reproductive organs: Enlarged prostate. Circumferential rectal wall thickening may represent proctiti s. Bladder: No wall thickness, accounting for underdistention. There are 2 dependent layering intralu bart calculi measuring 2 and 3 mm. Pelvic lymph nodes: No pelvic adenopathy by size criteria. Bones: No acute or suspicious osseous abnormality. Other: There is soft tissue thickening with a few foci of gas in the perineal region. No rim-enhancin g fluid collection to suggest abscess. IMPRESSION: Nonobstructing right renal calculi measuring up to 7 mm. Mild bilateral hydroureteronephrosis and per inephric stranding of uncertain etiology, possibly related to recent obstruction in the setting of in traluminal bladder calculi. Peroneal soft tissue thickening with a few foci of gas may reflect Eleni gangrene. No rim-enhancin g fluid collection to suggest abscess. Recommend correlation with physical exam. Circumferential rectal wall thickening may reflect proctitis. Reviewed by: Blanca Eagle MD on 06/16/2023 11:36 PM PST Approved by: Blanca Eagle MD on 06/16/2023 11:36 PM [facility] Station ID: [id number]
--- NOTE | 2023-06-16 23:38 | CT Report ---
PROCEDURE: Head WO INDICATIONS: ams TECHNIQUE: Noncontrast 4.5 mm thick angled axial sections acquired from the foramen magnum to the vertex. For r adiation dose reduction, the following was used: automated exposure control, adjustment of mA and/or kV according to patient size. COMPARISON: None. FINDINGS: Image quality: Degraded by motion artifact.. CSF spaces: Basal cisterns are patent. No extra-axial fluid collections. Ventricles are normal in size and shape. Brain: No midline shift. No intracranial masses or hemorrhage. Johnson-white matter interface is norm al. Skull and face: Calvarium and visualized facial bones are intact, without suspicious lesions. Sinuses: Visualized sinuses and mastoids are clear. IMPRESSION: Quality of exam is degraded by motion artifact. Within this limitation no acute intracranial process identified. Reviewed by: Blanca Eagle MD on 06/16/2023 11:37 PM PST Approved by: Blanca Eagle MD on 06/16/2023 11:37 PM PST Station ID: [id number]
[2023-06-16 23:50] VITALS: O2SAT 93
[2023-06-17 00:11] VITALS: BP 113/76
--- NOTE | 2023-06-17 07:26 | CONSULTATION NOTE ---
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 It appears he has had frequent scrotal wound infections, chronic phimosis for many years. He was last seen about a year ago. Today he presents to the hospital after his daughter found him living in a modified room in his garage with a heat lamp, reportedly lying on a couch and possibly lying in his own excrement. He has been encephalopathic and cannot respond to questions and only moan. 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 The ER physicians attempted to place catheter but they could not given his phimosis issues. He has been tachycardic with a soft blood pressure despite significant fluid replacement. Urology was consulted to help place a catheter and evaluate further History - Past Medical History Cardiovascular: reports: Congestive heart failure, Hypertension, High cholesterol, Other Respiratory: reports: None Neuro: reports: None Endocrine/Autoimmune: reports: Type 2 diabetes GI: reports: None : reports: None HEENT: reports: None Psych: reports: None Musculoskeletal: reports: Osteoarthritis, Other Derm: reports: Other MRSA Hx?: No - Past Surgical History Ortho: reports: Other - Family & Social History Family History: Mother: , Father: Family History Comment/Other: No family history of coronary artery disease, stroke, diabetes or cancer. Social History Notes: The patient lives in [place], [place] with his of many years. . The patient has 3 children, 2 live in [place] and one lives in [place]. The patient is a retired [employer]. He is a smoker and currently vapes (50+pk/yr hx). The patient does not drink alcohol and denies any illicit drug use. - POLST Patient has POLST: No POLST Status: Full Code Meds/Allgy - Home Medications Home Medications: Ambulatory Orders Medication Instructions Recorded Confirmed Sulfamethox/Trimeth 800/160 1 each PO BID #14 tablet 08/19/22 [Bactrim Ds 800/160] - Allergies Allergies/Adverse Reactions: Allergies Allergy/AdvReac Type Severity Reaction Status Date / Time No Known Drug Allergies Allergy Verified 08/19/22 11:19 Exam - Vital Signs Reviewed Vital Signs: Yes Vital Signs: Vital Signs x48h Pulse Resp BP Pulse Ox 06/16/23 23:35 107 H 28 H 113/76 93 - Physical Exam General Appearance: positive: Other (Nonverbal elderly man lying on his back, breathing deeply with almost gasping breaths Abdomen obese with large pannus and significant Yady type infection seen. Abdominal tissues feel thickened almost indurated Severe phimosis with pinpoint foreskin. Scrotum with multiple weeping lesions.) Skin: positive: Other (no crepitance felt) Conclusion and Plan - Lab Results Laboratory Results 06/16/23 23:29: POC Whole Bld Glucose 214 H 06/16/23 22:24: Nasal Adenovirus (PCR) NOT DETECTED, Nasal B. parapertussis DNA (PCR) NOT DETECTED, Nasal Coronavir 229E PCR NOT DETECTED, Nasal Coronavir HKU1 PCR NOT DETECTED, Nasal Coronavir NL63 PCR NOT DETECTED, Nasal Coronavir OC43 PCR NOT DETECTED, Nasal Enterovir/Rhinovir PCR NOT DETECTED, Nasal Influenza B PCR NOT DETECTED, Nasal Influenza A PCR NOT DETECTED, Nasal Parainfluen 1 PCR NOT DETECTED, Nasal Parainfluen 2 PCR NOT DETECTED, Nasal Parainfluen 3 PCR NOT DETECTED, Nasal Parainfluen 4 PCR NOT DETECTED, Nasal RSV (PCR) NOT DETECTED, Nasal B.pertussis DNA PCR NOT DETECTED, Nasal C.pneumoniae (PCR) NOT DETECTED, Nick Human Metapneumo PCR NOT DETECTED, Nasal M.pneumoniae (PCR) NOT DETECTED, Nasal SARS-CoV-2 (PCR) NOT DETECTED 06/16/23 20:26: Troponin I High Sens 93.5 H* 06/16/23 20:26: VBG pH 7.377, VBG pCO2 35.8 L, VBG pO2 40.5, VBG HCO3 20.6 L, VBG Total CO2 21.7 L, VBG O2 Saturation 70.5, VBG Base Excess -3.9 L 06/16/23 20:26: Lactic Acid 2.1 06/16/23 20:26: Sodium 137, Potassium 6.1 H*, Chloride 104, Carbon Dioxide 20 L, Anion Gap 13.0, BUN 115 H*, Creatinine 6.4 H, Estimated GFR (MDRD) 8 L, Glucose 264 H, Calcium 9.7, Phosphorus 4.6, Magnesium 1.9, Total Bilirubin 0.5, AST 17, ALT 11, Alkaline Phosphatase 86, Total Creatine Kinase 61, Total Protein 7.2, Albumin 2.9 L, Globulin 4.3 H, Albumin/Globulin Ratio 0.7 L, Ethyl Alcohol < 10.0 06/16/23 20:26: PT 14.5 H, INR 1.4 H 06/16/23 20:26: WBC 14.7 H, RBC 4.48 L, Hgb 12.7 L, Hct 40.0 L, MCV 89.3, MCH 28.3, MCHC 31.8 L, RDW 16.3 H, Plt Count 279, MPV 9.9, Neut # (Auto) 13.3 H, Lymph # (Auto) 0.3 L, [place] # (Auto) 0.8, Eos # (Auto) 0.2, Baso # (Auto) 0.0, Absolute Nucleated RBC 0.00, Nucleated RBC % 0.0 - Diagnostic Imaging Results Diagnostic Imaging Results: positive: Prelim report reviewed - Diagnosis Diagnosis: Urinary Retention. PHILIP. Phimosis. 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 - Plan Plan: Given concern for Eleni's gangrene, complex medical issues, likely need for advanced ICU level care with multiple teams it was decided to transfer him to [facility]. While we were awaiting this, we attempted to place a catheter to help drain his urine and assist with his hyperkalemia After prepping his foreskin we attempted to gently dilate his phimosis in order to access his meatus. This was all prepped and draped and after dilating of the foreskin using a clamp, we attempted to pass a catheter several times but could not identify the meatus. At the bedside, informed consent for possible suprapubic tube was obtained from the ER physician as a 2 republican consent. He had no one else to consent for him and he is encephalopathic. 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 He was prepped and draped in usual sterile fashion. 1% lidocaine was used as local in the suprapubic area 2" cranial to the pubic symphysis. An 18-gauge spinal needle was placed under ultrasound guidance into the bladder with cloudy yellow urine returning. A sensor wire was placed through this into the bladder. We then made an incision opening the skin using an 11 blade. We attempted to dilate this sensor wire using Amplatz dilators. However, after we reached the 14 Amharic it felt that we did not have good access anymore and I was no longer confident that we had good access to the bladder. An ultrasound could not confirm that the wire and dilators were still in the bladder. We remove the wire. At that point time we used a 3-0 Vicryl to close the skin with a single U-stitch. There was no bleeding. Gauze and tape were placed. Further interventions were not pursued as at that point in time the team taking him to [facility] had arrived. He was handed off to them
== END 2023-06-16 23:45 | disposition short-term general hospital (02) ==
LOC: EDUNIT# → ED 19:10
DX: G93.41 Metabolic encephalopathy (principal); A41.9 Sepsis, unspecified organism; R65.21 Severe sepsis with septic shock; N49.3 Fournier gangrene; E87.5 Hyperkalemia; R33.9 Retention of urine, unspecified; F41.9 Anxiety disorder, unspecified; N13.2 Hydronephrosis with renal and ureteral calculous obstruction; E11.9 Type 2 diabetes mellitus without complications; I48.92 Unspecified atrial flutter; F17.200 Nicotine dependence, unspecified, uncomplicated; Z74.01 Bed confinement status; I11.0 Hypertensive heart disease with heart failure; I50.9 Heart failure, unspecified; E78.00 Pure hypercholesterolemia, unspecified; M19.90 Unspecified osteoarthritis, unspecified site
CPT/HCPCS: 36415; 36556; 70450; 71045; 74176; 80053; 82550; 82803; 83605; 83735; 84100; 84484; 85025; 85610; 87040; 87150; 87633; 93005; 96365; 96366; 96368; 96375; 99285; 99291; A9270; G0480; J2060; J3370; J7120; 80320

== ENCOUNTER 2023-09-10 09:38 | Outpatient (CLI) | payer MEDICARE, OTHER | END 2023-09-10 23:59 | disposition short-term general hospital (02) | LOC: EMS 09:38 | DX: T83.091A Other mechanical complication of indwelling urethral catheter, initial encounter (principal); R30.9 Painful micturition, unspecified; R10.2 Pelvic and perineal pain; R53.1 Weakness; Z74.01 Bed confinement status | CPT/HCPCS: A0425; A0429; A0888 ==

== ENCOUNTER 2023-09-16 19:13 | Outpatient (CLI) | payer MEDICARE, OTHER | END 2023-09-16 19:14 | disposition short-term general hospital (02) | LOC: EMS 19:13 | DX: T83.021A Displacement of indwelling urethral catheter, initial encounter (principal); Z74.01 Bed confinement status | CPT/HCPCS: A0425; A0429; A0888 ==